=== PATIENT | female | born 1970 | race Two or more races ===

== ENCOUNTER 2020-07-08 01:17 | Emergency (ER) | payer OTHER, SELFPAY ==
[2020-07-08 01:26] VITALS: BP 125/80; BP 147/80; PULSE 74; PULSE 81; RESP 16; TEMP 36.6; O2SAT 100; O2SAT 97; BMI 44.9
--- NOTE | 2020-07-08 01:39 | PC.NURSE ---
Pt unable to provide urine sample at this time.
--- NOTE | 2020-07-08 01:45 | ED.ANXIETY ---
HPI - Anxiety General Chief Complaint: Anxiety Stated Complaint: etoh Time Seen by Provider: 07/08/20 01:41 Source: patient Mode of arrival: EMS Limitations: no limitations History of Present Illness HPI narrative: patient comes to emergency room complaining of anxiety. Patient states she had an argument with a friend/family, triggered anxiety. Patient states she has been drinking all of the ear over the last few years. Patient wants to stop drinking. Requesting information to call for detox. Related Data Allergies Allergy/AdvReac Type Severity Reaction Status Date / Time No Known Allergies Allergy Unverified 05/15/20 15:31 Review of Systems Review of Systems: Constitutional : No Weight loss, No Fever, No Chills, No Night Sweats, No Fatigue, No Malaise ENT/Mouth : No Hearing loss, No Ear Pain, No Nasal Congestion, No Sinus Pain, No Hoarseness, No sore throat, No Rhinorrhea, No Swallowing Difficulty Eyes: No Eye Pain, No Swelling, No Redness, No Foreign Body, No Discharge, No Vision Changes Cardiovascular : No Chest Pain, No SOB, No Dyspnea on Exertion, No Orthopnea, No Edema, No Palpitations Respiratory : No Cough, No Sputum, No Wheezing, No Smoke Exposure, No Dyspnea Gastrointestinal : No Nausea, No Vomiting, No Diarrhea, No Constipation, No abdominal Pain, No Hematochezia, No Melena Genitourinary : no irregular bleeding, No Dysuria, No Urinary Frequency, No Hematuria, No Urinary Incontinence, No Urgency, No Flank Pain, No Urinary Flow Changes, No Hesitancy Musculoskeletal : No joint pain, No Myalgias, No Joint Swelling Skin : No Skin Lesions, No rash Neuro : No Weakness, No Numbness, No Paresthesias, No Loss of Consciousness, No Dizziness, No Headache Psych : Patient's is anxious, crying, calm, cooperative, no SI or HI sh ideation, Heme/Lymph: No Bruising, No Bleeding,No Lymphadenopathy Endocrine : No Polyuria, No Polydipsia, No Temperature Intolerance PMFSH Past Medical History Medical History Anxiety Depression ETOH abuse Social History Social History Alcohol intake: current Alcohol intake frequency: 3 or more drinks per day Alcohol type: beer Smoking Status: Current every day smoker Use of substances other than those prescribed or required for medical reasons: No Physical Exam Vital Signs: Vital Signs: Last Vital Signs Temp 97.8 F 07/08/20 01:26 Pulse 81 07/08/20 01:26 Resp 16 07/08/20 01:26 BP 125/80 07/08/20 01:26 Pulse Ox 97 07/08/20 01:26 Body Mass Index 44.9 Course Course Course Narrative: patient got Ativan, more calm now, the care team discussed with the patient options for treatment and given information. Patient has a sober ride to pick her up. patient remains alert and oriented x3, steady gait. Discharge Plan Discharge Clinical Impression: Acute anxiety Alcohol intoxication Qualifiers: Complication of substance-induced condition: uncomplicated Qualified Code(s): F10.920 - Alcohol use, unspecified with intoxication, uncomplicated Patient Disposition: Home, Self-Care Instructions: Abuse of Alcohol (ED), Anxiety (ED)
--- NOTE | 2020-07-08 01:47 | PC.NURSE ---
Care Team at bedside providing detox information.
[2020-07-08] MEDS: LORazepam 1 MG TABLET 2 MG PO (01:59)
--- NOTE | 2020-07-08 02:00 | PC.NURSE ---
Pt medicated with Ativan per EMAR. 1 tablet dropped on ground, wasted with J Luis VELASQUEZ. Another tablet was removed due to having to waste 1 mg. Pt aware of pending DC, calling for rides.
[2020-07-08 02:21] VITALS: BP 125/79; PULSE 76; RESP 16; O2SAT 97
--- NOTE | 2020-07-08 02:30 | PC.NURSE ---
Pts son en route to drive pt home. Pt provided with DC paperwork and ambulating to the waiting room to await her son for transport home. Pt ambulating with a aguilar/steady gait.
== END 2020-07-08 02:33 | disposition home or self-care (01) ==
LOC: HO.ED 01:56
PROVIDERS: Emergency Provider Emergency Medicine
DX: F41.1 Generalized anxiety disorder (principal); F43.0 Acute stress reaction
CPT/HCPCS: 99283

== ENCOUNTER 2020-08-07 14:32 | Outpatient (REF) | payer OTHER, SELFPAY | END 2020-08-07 14:33 | disposition home or self-care (01) | LOC: HO.LAB 14:32 | PROVIDERS: PCP Internal Medicine; Visit Provider Internal Medicine | DX: Z20.828 Contact with and (suspected) exposure to other viral communicable diseases (principal) | CPT/HCPCS: C9803; U0003 ==

== ENCOUNTER 2020-08-16 02:38 | Emergency (ER) | payer OTHER, SELFPAY ==
[2020-08-16 02:40] VITALS: BP 129/79; PULSE 86; RESP 18; TEMP 36.7; O2SAT 98; BMI 23.3
--- NOTE | 2020-08-16 02:52 | ED.ABDPAIN ---
HPI - Abdominal Pain General Chief Complaint: Abdominal Pain Stated Complaint: ?Kidney stone Time Seen by Provider: 08/16/20 02:52 Source: patient Mode of arrival: ambulatory Limitations: no limitations History of Present Illness HPI narrative: Patient with no history of kidney stone in the past previous CT scan was negative comes here for right flank pain started 3 days ago treated in the right lower abdomen associated with nausea no urinary complaints still yesterday when she noticed pain when she urinates. No blood in the urine no fever no chills no vomiting no family history of kidney stone MD elicited complaint: flank pain Pertinent past history: constipation Onset (ago): day(s) (3) Pain Consistency: constant Location: RLQ and R flank Severity: moderate Quality: stabbing Radiation: RLQ Exacerbating factors: nothing Relieving factors: nothing Related Data Allergies Allergy/AdvReac Type Severity Reaction Status Date / Time No Known Allergies Allergy Verified 08/16/20 02:40 Review of Systems Review of Systems Constitutional : No Weight loss, No Fever, No Chills ENT/Mouth : No sore throat, No Rhinorrhea Eyes: No Eye Pain, No Swelling Cardiovascular : pos Chest Pain, no SOB, no Dyspnea on Exertion, No Orthopnea, No Edema, No Palpitations Respiratory : No Cough, No Sputum Gastrointestinal : No Vomiting, No Diarrhea No Hematochezia, No Melena Genitourinary : No Urinary Frequency no hematuria Musculoskeletal : No joint pain, No Myalgias, No Joint Swelling Skin : No Skin Lesions, No rash Neuro : No Weakness, No Numbness, pos Dizziness, No Headache Psych : No Anxiety/Panic, No Depression Heme/Lymph: No Bruising, No Lymphadenopathy Endocrine : No Polyuria, No Polydipsia All other systems reviewed and are negative Physical Exam Vital Signs: Vital Signs: Last Vital Signs Temp 98.1 F 08/16/20 02:40 Pulse 86 08/16/20 02:40 Resp 18 08/16/20 02:40 BP 129/79 08/16/20 02:40 Pulse Ox 98 08/16/20 02:40 Body Mass Index 23.3 Appearance: Alert. Oriented X3. No acute distress. Eyes: Pupils equal, round and reactive to light. ENT: Pharynx normal. Neck: Normal inspection. Neck supple. CVS: Normal heart rate and rhythm. Pulses normal. Respiratory: No respiratory distress. Breath sounds normal. Abdomen: Soft and nontender. Right CVA tenderness+ bowel sounds are present no mass palpable Skin: Skin warm and dry. Normal skin color. Normal skin turgor. Extremities: No lower extremity edema. No calf ttp Neuro: Oriented X 3. No motor deficit. No sensory deficit. MDM - Abdominal Pain MDM Narrative Medical decision making narrative: Patient with flank pain, urine is negative showed only trace blood CT scan is also negative for any acute pathology no kidney stone seen patient constipated likely patient has muscular pain will discharge her home on pain medicine Differential Diagnosis Differential diagnosis: Likely calculus of kidney Medical Records Attestation: I reviewed the patient's medical records. Lab Data Attestation: I reviewed the patient's lab results. Result diagrams: 08/16/20 03:06 08/16/20 03:06 Labs: Lab Results 08/16/20 08/16/20 08/16/20 Range/Units 03:06 03:06 03:06 WBC 7.3 (4.8-10.8) X10*3/uL RBC 4.35 (4.20-5.50) X10*6/uL Hgb 14.6 (12.0-16.0) g/dl Hct 43.3 (37-47) % MCV 99.5 H (80-98) fL MCH 33.6 H (27.0-33.0) pg MCHC 33.7 (31.0-35.0) g/dl RDW 12.4 (11.0-16.0) % Plt Count 263 (160-400) X10*3/uL MPV 10.1 (9.4-12.3) fL Immature Gran % (Auto) 0.3 (0.0-0.4) % Neut % (Auto) 54.1 (45-73) % Lymph % (Auto) 33.7 (20-40) % [place] % (Auto) 9.6 (2-11) % Eos % (Auto) 1.9 (0-4) % Baso % (Auto) 0.4 (0-2) % Lymph # (Auto) 2.5 (1.2-4.9) X10*3/uL [place] # (Auto) 0.7 (0.1-1.2) X10*3/uL Eos # (Auto) 0.1 (0.0-0.4) X10*3/uL Baso # (Auto) 0.0 (0.0-0.2) X10*3/uL Abs Immat Gran (auto) 0.02 (0.00-0.03) X10*3/uL Absolute Neuts (auto) 3.9 (2.0-8.3) X10*3/uL Absolute Nucleated RBC 0.000 (0.0-0.012) X10*3/uL Nucleated RBC % (auto) 0.0 (0.0-0.2) /100WBC Hold Blue Top SEE NOTE Sodium (135-145) mmol/L Potassium (3.3-5.1) mmol/l Chloride (96-108) mmol/L Carbon Dioxide (22-29) mmol/L Anion Gap (12-20) BUN (9-16) mg/dL Creatinine (0.5-1.4) mg/dL Estim Creat Clear Calc Estimated GFR Random Glucose (60-115) mg/dL Calcium (8.4-10.2) mg/dL Total Bilirubin (0.0-1.0) mg/dL AST (5-31) U/L ALT (0-31) U/L Alkaline Phosphatase (39-117) U/L Total Protein (6.5-8.0) g/dL Albumin (3.5-5.0) g/dL Urine Color YELLOW Urine Appearance CLEAR Urine pH 6.0 (5.0-8.0) Ur Specific Fowler <= 1.005 (1.005-1.025) Urine Protein NEG (NEG-TRACE) MG/DL Urine Glucose (UA) NEG (NEG) MG/DL Urine Ketones NEG (NEG) MG/DL Urine Blood TRACE (NEG) Urine Nitrite NEG (NEG) Ur Leukocyte Esterase NEG (NEG) Urine RBC 1-4 (0) /HPF Urine WBC 1-4 (0-4) /HPF Ur Squamous Epith Cells 1+ /LPF Urine Bacteria 1+ /LPF 08/16/20 Range/Units 03:06 WBC (4.8-10.8) X10*3/uL RBC (4.20-5.50) X10*6/uL Hgb (12.0-16.0) g/dl Hct (37-47) % MCV (80-98) fL MCH (27.0-33.0) pg MCHC (31.0-35.0) g/dl RDW (11.0-16.0) % Plt Count (160-400) X10*3/uL MPV (9.4-12.3) fL Immature Gran % (Auto) (0.0-0.4) % Neut % (Auto) (45-73) % Lymph % (Auto) (20-40) % [place] % (Auto) (2-11) % Eos % (Auto) (0-4) % Baso % (Auto) (0-2) % Lymph # (Auto) (1.2-4.9) X10*3/uL [place] # (Auto) (0.1-1.2) X10*3/uL Eos # (Auto) (0.0-0.4) X10*3/uL Baso # (Auto) (0.0-0.2) X10*3/uL Abs Immat Gran (auto) (0.00-0.03) X10*3/uL Absolute Neuts (auto) (2.0-8.3) X10*3/uL Absolute Nucleated RBC (0.0-0.012) X10*3/uL Nucleated RBC % (auto) (0.0-0.2) /100WBC Hold Blue Top Sodium 136 (135-145) mmol/L Potassium 3.8 (3.3-5.1) mmol/l Chloride 101 (96-108) mmol/L Carbon Dioxide 26 (22-29) mmol/L Anion Gap 13 (12-20) BUN 6 L (9-16) mg/dL Creatinine 0.69 (0.5-1.4) mg/dL Estim Creat Clear Calc 92.3 Estimated GFR > 60 Random Glucose 69 (60-115) mg/dL Calcium 9.1 (8.4-10.2) mg/dL Total Bilirubin 0.3 (0.0-1.0) mg/dL AST 33 H (5-31) U/L ALT 19 (0-31) U/L Alkaline Phosphatase 78 (39-117) U/L Total Protein 7.4 (6.5-8.0) g/dL Albumin 4.2 (3.5-5.0) g/dL Urine Color Urine Appearance Urine pH (5.0-8.0) Ur Specific Fowler (1.005-1.025) Urine Protein (NEG-TRACE) MG/DL Urine Glucose (UA) (NEG) MG/DL Urine Ketones (NEG) MG/DL Urine Blood (NEG) Urine Nitrite (NEG) Ur Leukocyte Esterase (NEG) Urine RBC (0) /HPF Urine WBC (0-4) /HPF Ur Squamous Epith Cells /LPF Urine Bacteria /LPF PMFSH Past Medical History Medical History Anxiety Depression ETOH abuse Social History Social History Alcohol intake: current Alcohol intake frequency: 3 or more drinks per day Alcohol type: beer Smoking Status: Current every day smoker Advance Directives: No Advance Directives Information Provided: No
--- NOTE | 2020-08-16 02:57 | PC.NURSE ---
Addendum entered by Shelbie Bhandari 08/16/20 03:07: Correction: Right sided lower back pain radiating into right flank/abdomen. Original Note: Pt reports left lower back pain radiating into left flank/abdomen x 3 days with nausea and decreased PO. Pt states that she had a telephone appt with her PCP who told her it was a kidney stone but she has an office appt today. Pt states she is unable to wait due to the pain. Pt ambulating to the bathroom to provide urine sample, reporting burning with urination, a white jello discharge and vaginal itching. Pt denies taking anything OTC for pain, denies hx of kidney stones. Awaiting primary MD mccullough.
--- NOTE | 2020-08-16 03:09 | PC.NURSE ---
IV established, labs and urine obtained. Pt self reports drinking 3 beers at a birthday green party prior to arriving at [facility], denies drugs. Awaiting primary MD mccullough.
--- NOTE | 2020-08-16 03:15 | CT_ITS ---
EXAMINATION: CT ABDOMEN AND PELVIS WITHOUT CONTRAST CLINICAL INFORMATION: Right flank pain. COMPARISON: 08/16/2016. TECHNIQUE: Contiguous axial thin section helical images of the abdomen and pelvis were performed without oral or IV contrast. The data set was reformatted in the coronal and sagittal planes and reviewed on an independent workstation. DLP: 513 mGy-cm. FINDINGS: There is mild dependent bibasilar atelectasis. The visualized lung bases are otherwise clear. The visualized portions of the heart are unremarkable. The liver is of normal size and attenuation without focal lesions nor intrahepatic biliary ductal dilation. A normal gallbladder is identified. There is no wall thickening or discernible pericholecystic fluid. The spleen, pancreas, adrenal glands are unremarkable. Both kidneys are of normal size and attenuation without hydronephrosis or nephrolithiasis. There is no abdominal free fluid. There is neither mesenteric nor retroperitoneal lymphadenopathy. Normal unopacified loops of small and large bowel are identified. There is no pelvic free fluid. The urinary bladder is unremarkable. There is neither pelvic nor inguinal lymphadenopathy. Bone windows: Neither sclerotic nor lytic bone lesions are identified. There is disc height loss at L5/S1. CT/CT abdomen pelvis wo con IMPRESSION: No evidence for acute abdominal or pelvic inflammatory or infectious processes. Neither hydronephrosis nor nephrolithiasis. Automated exposure control (Care Dose) Adjustment of the mA and/or kv according to patient size (this includes techniques or standardized protocols for targeted exams where dose is matched to indication / reason for exam; i.e. extremities or head).
[2020-08-16 03:16] LABS: MANUAL DIFF FLAG NO
--- NOTE | 2020-08-16 03:17 | PC.NURSE ---
MD at bedside for primary eval. During abdominal exam, pt now reporting pain with palpitation to LLQ, states that she was not having pain in that location until palpated by MD. LBM 08/14 however pt reports feeling constipated, states she usually moves her bowels daily.
[2020-08-16] MEDS: Morphine Sulfate 4 MG/ML CARTRIDGE IVPUSH (03:22)
[2020-08-16] MEDS: ondansetron HCL 4 MG/2 ML VIAL IVPUSH (03:22)
[2020-08-16] MEDS: 0.9 % Sodium Chloride 1,000 ML 999 ML IVCONT (03:22)
[2020-08-16 03:23] LABS: Basophils Percent Auto 0.4 % (0-2); Eosinophils Absolute Auto 0.1 X10*3/uL (0.0-0.4); Eosinophils Percent Auto 1.9 % (0-4); Hematocrit 43.3 % (37-47); Hemoglobin 14.6 g/dl (12.0-16.0); Imm Gran Abs Auto 0.02 X10*3/uL (0.00-0.03); Imm Gran Pct Auto 0.3 % (0.0-0.4); Lymphocytes Absolute Auto 2.5 X10*3/uL (1.2-4.9); Lymphocytes Percent Auto 33.7 % (20-40); Mean Corpuscular HGB Conc 33.7 g/dl (31.0-35.0); Mean Corpuscular Hemoglobin 33.6 pg (27.0-33.0); Mean Corpuscular Volume 99.5 fL (80-98); Mean Platelet Volume 10.1 fL (9.4-12.3); Monocytes Absolute Auto 0.7 X10*3/uL (0.1-1.2); Monocytes Percent Auto 9.6 % (2-11); Neutrophils Absolute Auto 3.9 X10*3/uL (2.0-8.3); Neutrophils Percent Auto 54.1 % (45-73); Platelet Count 263 X10*3/uL (160-400); Red Blood Count 4.35 X10*6/uL (4.20-5.50); Red Cell Distribution Width 12.4 % (11.0-16.0); White Blood Count 7.3 X10*3/uL (4.8-10.8)
--- NOTE | 2020-08-16 03:26 | PC.NURSE ---
Pt medicated per MAR, aware of plan to CT. Continue to monitor.
[2020-08-16 03:49] LABS: Alanine Aminotransferase 19 U/L (0-31); Albumin Level 4.2 g/dL (3.5-5.0); Alkaline Phosphatase 78 U/L (39-117); Anion Gap 13 (12-20); Aspartate Amino Transferase 33 U/L (5-31); Bilirubin Total 0.3 mg/dL (0.0-1.0); Blood Urea Nitrogen 6 mg/dL (9-16); Calcium 9.1 mg/dL (8.4-10.2); Carbon Dioxide 26 mmol/L (22-29); Chloride 101 mmol/L (96-108); Creatinine Clr Calc Pharmacy 92.3; Estimated Glomerular Filt Rate > 60; Glucose Random 69 mg/dL (60-115); Potassium 3.8 mmol/l (3.3-5.1); Sodium 136 mmol/L (135-145); Total Protein 7.4 g/dL (6.5-8.0)
--- NOTE | 2020-08-16 03:58 | PC.NURSE ---
Pt returns from CT on hospital bed without incident, awaiting results.
[2020-08-16 04:04] LABS: Glucose Urine UA NEG (NEG); Leukocyte Esterase Urine NEG (NEG); Nitrite Urine NEG (NEG); Specific Gravity - Urine <= 1.005 (1.005-1.025); Urine Blood TRACE (NEG); Urine Ketones NEG (NEG); Urine Protein NEG (NEG-TRACE)
[2020-08-16 04:05] LABS: Appearance Urine CLEAR; Color Urine YELLOW
[2020-08-16 04:10] LABS: Bacteria Urine 1+ /LPF; Squamous Epithelial Cell Urine 1+ /LPF
--- NOTE | 2020-08-16 04:14 | PC.NURSE ---
MD at bedside explaining discharge results and plan of care. Pt snoring in bed, plan to discharge when pt wakes up.
[2020-08-16 04:37] VITALS: BP 114/65; PULSE 79; RESP 16
[2020-08-16] MEDS: Milk of Magnesia 30 ML ORAL.SUSP PO (04:37)
== END 2020-08-16 04:43 | disposition home or self-care (01) ==
PROVIDERS: Emergency Provider Internal Medicine; PCP Internal Medicine
DX: R10.9 Unspecified abdominal pain (principal); F17.210 Nicotine dependence, cigarettes, uncomplicated
CPT/HCPCS: 36415; 74176; 80053; 81001; 81003; 85025; 96361; 96374; 96375; 99284; J2270; J2405

== ENCOUNTER 2020-09-01 01:39 | Emergency (ER) | payer OTHER, SELFPAY ==
--- NOTE | 2020-09-01 | XR_ITS ---
EXAMINATION: XR HUMERUS, RIGHT XR FOREARM, RIGHT CLINICAL INFORMATION: Fall COMPARISON: None TECHNIQUE: 2 views of the right humerus. 2 views of the right forearm. FINDINGS: Right humerus: No fracture or cortical disruption. Appropriate alignment of the shoulder and elbow. The visualized ribs are intact. The visualized lung is clear. Right forearm: No fracture or cortical disruption. Appropriate alignment of the elbow and wrist. The soft tissues are unremarkable. XR/XR humerus RT IMPRESSION: No fracture or malalignment of the right humerus or forearm.
--- NOTE | 2020-09-01 | XR_ITS ---
EXAMINATION: XR HUMERUS, RIGHT XR FOREARM, RIGHT CLINICAL INFORMATION: Fall COMPARISON: None TECHNIQUE: 2 views of the right humerus. 2 views of the right forearm. FINDINGS: Right humerus: No fracture or cortical disruption. Appropriate alignment of the shoulder and elbow. The visualized ribs are intact. The visualized lung is clear. Right forearm: No fracture or cortical disruption. Appropriate alignment of the elbow and wrist. The soft tissues are unremarkable. XR/XR forearm RT 2V IMPRESSION: No fracture or malalignment of the right humerus or forearm.
[2020-09-01 02:16] VITALS: BP 115/64; PULSE 85; RESP 16; TEMP 36.8; O2SAT 99; BMI 23.3
--- NOTE | 2020-09-01 03:45 | XR_ITS ---
EXAMINATION: XR HAND, RIGHT CLINICAL INFORMATION: Fall COMPARISON: None TECHNIQUE: PA, lateral, and oblique views of the right hand. FINDINGS: There is no fracture or dislocation. Alignment is anatomic. Changes of the first interphalangeal joint and first metacarpophalangeal joint with small osteophytes. The carpal rows are well aligned. The soft tissues are unremarkable. XR/XR hand RT min 3V IMPRESSION: No fracture or malalignment.
--- NOTE | 2020-09-01 03:47 | ED.FALL ---
HPI - Fall General Chief Complaint: Fall Stated Complaint: Fall Time Seen by Provider: 09/01/20 03:41 Source: patient Mode of arrival: ambulatory Limitations: no limitations History of Present Illness HPI Narrative: Patient was coming from the bathroom in dark patient tripped and fell on stairs about 10 steps slided down complaining of pain in the right hand no head injury no loss of consciousness no significant back pain, patient ambulatory without any discomfort complaint: fall Onset (ago): minute(s) Fall from: down stairs (#) (10) Fall witnessed: no Place fall occurred: home Loss of consciousness: none Prolonged down time: no Symptoms prior to fall: none Context: tripped/slipped Location of injury - extremities: right: hand Severity: mild Related Data Previous Rx's Medication Instructions Recorded bisacodyl [Ducodyl (bisacodyl)] 5 mg PO BEDTIME PRN #20 tab 08/16/20 polyethylene glycol 3350 [Miralax] 17 g PO DAILY PRN #30 ea 08/16/20 ibuprofen 600 mg PO Q6H PRN #20 tab 09/01/20 Allergies Allergy/AdvReac Type Severity Reaction Status Date / Time No Known Allergies Allergy Verified 08/16/20 02:40 Review of Systems Review of Systems: Yes all other systems are reviewed and are negative PMFSH Past Medical History Medical History Anxiety Depression ETOH abuse Social History Social History Alcohol intake: never Smoking Status: Light tobacco smoker Use of substances other than those prescribed or required for medical reasons: No Advance Directives: No Advance Directives Information Provided: No Physical Exam Vital Signs: Vital Signs: Last Vital Signs Temp 98.2 F 09/01/20 02:16 Pulse 85 09/01/20 02:16 Resp 16 09/01/20 02:16 BP 115/64 09/01/20 02:16 Pulse Ox 99 09/01/20 02:16 Body Mass Index 23.3 Appearance: Alert. Oriented X3. No acute distress. Eyes: Pupils equal, round and reactive to light. ENT: Pharynx normal. Head atraumatic normocephalic no mastoid tenderness Neck: Normal inspection. Neck supple. No cervical spine tenderness CVS: Normal heart rate and rhythm. Pulses normal. Respiratory: No respiratory distress. Breath sounds normal. Abdomen: Soft and nontender. Bowel sounds are present, no mass palpable, Skin: Skin warm and dry. Normal skin color. Normal skin turgor. Extremities: Tenderness with swelling of right dorsum of hand with painful range of movement mild tenderness right elbow with good range of movement good range of movement of the shoulder no other bony tenderness no focal spinal tenderness patient is able to ambulate in a steady gait Neuro: Oriented X 3. No motor deficit. No sensory deficit. Discharge Plan Discharge Clinical Impression: Sprain of hand, right Qualifiers: Encounter type: initial encounter Qualified Code(s): S63.91XA - Sprain of unspecified part of right wrist and hand, initial encounter Patient Disposition: Home, Self-Care Instructions: Hand Sprain (ED) Additional Instructions: Apply ice wear the splint for support Take pain medication as prescribed Prescriptions: New ibuprofen 600 mg tablet 600 mg PO Q6H PRN (Reason: pain) Qty: 20 RF: 0 No Action polyethylene glycol 3350 [Miralax] 17 gram powder in packet 17 g PO DAILY PRN (Reason: constipation) Qty: 30 RF: 0 bisacodyl [Ducodyl (bisacodyl)] 5 mg tablet,delayed release (DR/EC) 5 mg PO BEDTIME PRN (Reason: constipation) Qty: 20 RF: 0 Interventions: ED Discharge Assessment Last Done: 09/01/20 04:28 Discharge Date/Time: 09/01/20 04:29
[2020-09-01] MEDS: Ibuprofen 600 MG TABLET PO (04:28)
== END 2020-09-01 04:29 | disposition home or self-care (01) ==
PROVIDERS: Emergency Provider Internal Medicine
DX: S63.91XA Sprain of unspecified part of right wrist and hand, initial encounter (principal); W10.8XXA Fall (on) (from) other stairs and steps, initial encounter; Y93.9 Activity, unspecified; Y92.019 Unspecified place in single-family (private) house as the place of occurrence of the external cause; Y99.9 Unspecified external cause status; F17.210 Nicotine dependence, cigarettes, uncomplicated; F10.10 Alcohol abuse, uncomplicated
CPT/HCPCS: 29125; 73060; 73090; 73130; 99284

== ENCOUNTER 2020-09-30 20:33 | Emergency (ER) | payer OTHER, SELFPAY | END 2020-09-30 21:35 | disposition left against medical advice (07) | PROVIDERS: Emergency Provider Emergency Medicine; PCP Internal Medicine | DX: R10.30 Lower abdominal pain, unspecified (principal) ==

== ENCOUNTER 2020-10-01 00:52 | Emergency (ER) | payer OTHER, SELFPAY ==
[2020-10-01 01:09] VITALS: BP 135/78; PULSE 80; RESP 18; TEMP 36.3; O2SAT 97; BMI 23.3
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
[2020-10-01] MEDS: cefTRIAXone sodium 500 MG, Lidocaine HCl 1 % MPF 1 ML IM (01:40)
[2020-10-01] MEDS: Azithromycin 500 MG TABLET 1000 MG PO (01:40)
[2020-10-01 01:47] LABS: Appearance Urine CLEAR; Color Urine STRAW; Glucose Urine UA NEG (NEG); Leukocyte Esterase Urine NEG (NEG); Nitrite Urine NEG (NEG); PH 5.5 (5.0-8.0); Specific Gravity - Urine <= 1.005 (1.005-1.025); UACC Culture Trigger NO; Urine Blood NEG (NEG); Urine Ketones NEG (NEG); Urine Protein NEG (NEG-TRACE)
[2020-10-01 01:49] LABS: UPreg QC Valid YES; Urine Pregnancy NEGATIVE (NEGATIVE)
--- NOTE | 2020-10-01 01:52 | PC.NURSE ---
PT MEDICATED WITH PO ABX CHARTED. IM ABX TO LEFT DELTOID, PT TANA WELL. UACC AND CTNG COLLECTED AND SENT TO LAB, RESULTS PENDING. PT APPEARS IN NAD. SKIN WD, RESP REG AND EVEN.
[2020-10-01] MEDS: Fluconazole 150 MG TABLET PO (02:39)
[2020-10-02 11:58] LABS: C. trachomatis RNA TMA NOT DETECTED (NOT DETECTED); N. gonorrhoeae RNA TMA NOT DETECTED (NOT DETECTED)
== END 2020-10-01 02:44 | disposition home or self-care (01) ==
PROVIDERS: Emergency Provider Student in an Organized Health Care Education/Training Program; PCP Internal Medicine
DX: N89.8 Other specified noninflammatory disorders of vagina (principal); Z20.2 Contact with and (suspected) exposure to infections with a predominantly sexual mode of transmission; F17.200 Nicotine dependence, unspecified, uncomplicated
CPT/HCPCS: 36415; 81003; 81025; 87491; 87591; 96372; 99284; J0696

== ENCOUNTER 2020-10-17 01:50 | Emergency (ER) | payer OTHER, SELFPAY ==
[2020-10-17 02:14] VITALS: BP 130/87; PULSE 71; RESP 18; TEMP 36.9; O2SAT 100; BMI 26.3
--- NOTE | 2020-10-17 02:56 | ED_ITS ---
HPI - General Adult General Chief complaint: Abdominal Pain Stated complaint: abdominal pain Time Seen by Provider: 10/17/20 02:24 Source: patient Mode of arrival: ambulatory Limitations: no limitations History of Present Illness HPI narrative: 50-year-old female who presents emergency department for evaluation lower abdominal pain and dysuria with pruritus in the vaginal area. The patient states that she is sexually active and had sex with a new partner approximately 1 month prior. The patient was seen here in the emergency department on 10/01/2020 for evaluation of suprapubic pain, burning sensation in her vaginal area and a vaginal discharge. The patient was treated empirically with ceftriaxone 500 mg IM and azithromycin 1 g orally. She states that this did not relieve her symptoms. She states that currently she is having suprapubic pain which describes as a constant, burning pain which is 8/10 at its worst. She states that she continues to have a yellow vaginal discharge, urinary frequency and a burning sensation with pruritus in the vaginal area. She has not noticed any blisters or lesions. She denied fever, chills, nausea, vomiting or diarrhea. Related Data Previous Rx's Medication Instructions Recorded bisacodyl [Ducodyl (bisacodyl)] 5 mg PO BEDTIME PRN #20 tab 08/16/20 polyethylene glycol 3350 [Miralax] 17 g PO DAILY PRN #30 ea 08/16/20 ibuprofen 600 mg PO Q6H PRN #20 tab 09/01/20 doxycycline hyclate 100 mg PO Q12H 10 Days #20 tab 10/17/20 metronidazole 500 mg PO BID 10 Days #20 tab 10/17/20 miconazole nitrate [Monistat 7] 1 appful VAGINAL BEDTIME 7 Days g 10/17/20 Allergies Allergy/AdvReac Type Severity Reaction Status Date / Time No Known Allergies Allergy Verified 08/16/20 02:40 Review of Systems Review of Systems: Yes all other systems are reviewed and are negative Neurologic: Reports Abnormal speech present [facility] Past Medical History [facility] Narrative: The patient does smoke cigarettes daily. She drinks alcohol 2 to 3 times a week, she drinks 5 beers at a time. She denies drug use. Medical History Anxiety Depression ETOH abuse Social History Social History Alcohol intake: current Alcohol intake frequency: 3 or more drinks per day Alcohol type: beer Smoking Status: Current every day smoker Advance Directives: No Advance Directives Information Provided: No Physical Exam Vital Signs: Vital Signs: Last Vital Signs Temp 98.5 F 10/17/20 02:14 Pulse 71 10/17/20 02:14 Resp 18 10/17/20 02:14 BP 130/87 10/17/20 02:14 Pulse Ox 100 10/17/20 02:14 Body Mass Index 26.3 Const: General: cooperative and healthy appearing Orientation/conscio usness: oriented to person and oriented to place Limitations: no limitations HENMT: Head: Yes normal to inspection, Yes normocephalic and Yes atraumatic Ears: external ears normal General nose exam: Normal external nose present Face and sinus: Yes normal facial exam Mouth: Normal oral and palatal mucosa present Throat: Yes posterior oropharynx normal Eyes: Periorbital: periorbital findings normal Eyelids: Yes eyelids normal Conjunctivae: conjunctivae normal Sclerae: sclerae normal Corneas: corneas normal Pupils: Equal, round and reactive pupils present Direct Ophthalmoscopy: normal light reflex Neck: Neck: Yes full ROM, Yes no lymphadenopathy, Yes no meningeal signs, Yes trachea midline and Yes supple Chest: Chest palpation & inspection: normal inspection of the chest and normal palpation of entire chest wall Resp: Effort & Inspection: normal respiratory effort and able to speak in complete sentences Auscultation: clear to auscultation bilaterally Cardio: Rate: regular rate Rhythm: regular rhythm Heart sounds: S1 normal heart sound present, S2 normal heart sound present and no murmurs GI: Inspection: Yes normal to inspection Palpation (GI): Soft to palpation, Tenderness to palpation present (GI) suprapubicly (Moderate), no guarding, not rigid and No hepatosplenomegaly present : General: Yes no CVA tenderness External Female Exam: normal external appearance Speculum Exam - Vagina: abnormal vaginal discharge (Yellowish vaginal discharge) Speculum Exam - Cervix: Abnormal cervical discharge present yellow, no lesions and Cervical tenderness present (Moderate) Bimanual exam- vagina & uterus: Cervical tenderness present (Moderate) and cervical motion tenderness (Moderate) Bimanual Exam- Adnexa, other: tender bilaterally (Moderate) Back/Spine/Pelvis: Back: no CVA tenderness Cervical Spine: normal cervical lordosis Thoracic/Lumbar Spine: thoracic and lumbar spine normal to inspection Skin: Lesions: no lesions Rashes: no rashes Wounds: no wounds Neuro: General: oriented to person, oriented to place and no meningeal signs Cranial nerves: Yes Equal, round and reactive pupils present Cognition (Neuro): normal cognition Speech: Abnormal speech present Motor exam (neuro): 5/5 motor strength present throughout Extrem: General: Yes normal to inspection and Yes full ROM Psych: Appearance: well kempt Mental Status: mental status grossly normal Speech and movement: Normal speech and movement present Affect: normal affect Attitude: cooperative Thought process: Normal thought process present Thought content: Normal thought content present Course Course Course Narrative: 50-year-old female who presents emergency department for evaluation of suprapubic pain, dysuria, vaginal burning and pruritus times 2 weeks, patient is sexually active and last had intercourse 1 month prior with a new sexual partner. The patient was seen in the emergency department on 10/01/2020 and treated empirically for GC and chlamydia with ceftriaxone 500 mg IM and azithromycin 1 g orally with no improvement of her symptoms. Today's examination is consistent with pelvic inflammatory disease. The patient's urine GC and chlamydia results from her previous visit were negative. The patient will be treated for pelvic inflammatory disease with doxycycline 100 mg twice a day for 10 days and Flagyl 500 mg twice a day for 10 days. She will also be treated empirically for possible yeast infection with Monistat 7. She was advised to take ibuprofen for her pain. She gets her gynecological care at [facility] and she was advised to follow-up in 7-10 days for re- evaluation Medical Decision Making Lab Data Labs: Lab Results 10/17/20 Range/Units 02:59 Chlam trachomat DNA PCR Cancelled N.gonorrhoeae DNA (PCR) Cancelled Discharge Plan Discharge Clinical Impression: Acute pelvic inflammatory disease, Candidiasis of vagina Patient Disposition: Home, Self-Care Instructions: Pelvic Inflammatory Disease (ED) Additional Instructions: Your examination is consistent with pelvic inflammatory disease. Take doxycycline 100 mg pills, 1 pill twice a day for 10 days. Take metronidazole 500 mg pills, 1 pill twice a day for 10 days. Use the Monistat 7 daily for 7 days this will treat a yeast infection. Take ibuprofen 200 mg pills, 3 pills every 6 hours as needed for pain. Take Tylenol (acetaminophen) 500 mg pills, 2 pills every 4 to 6 hours as needed for pain. Follow-up with your doctor in 2 days. Please return to the emergency department if your symptoms get worse or if you develop any symptoms that are concerning to you. Prescriptions: New doxycycline hyclate 100 mg tablet 100 mg PO Q12H 10 Days Qty: 20 RF: 0 metronidazole 500 mg tablet 500 mg PO BID 10 Days Qty: 20 RF: 0 miconazole nitrate [Monistat 7] 2 % cream 1 appful vaginal BEDTIME 7 Days RF: 0 No Action polyethylene glycol 3350 [Miralax] 17 gram powder in packet 17 g PO DAILY PRN (Reason: constipation) Qty: 30 RF: 0 bisacodyl [Ducodyl (bisacodyl)] 5 mg tablet,delayed release (DR/EC) 5 mg PO BEDTIME PRN (Reason: constipation) Qty: 20 RF: 0 ibuprofen 600 mg tablet 600 mg PO Q6H PRN (Reason: pain) Qty: 20 RF: 0
[2020-10-17 03:02] LABS: Glucose Urine UA NEG (NEG); Leukocyte Esterase Urine NEG (NEG); Nitrite Urine NEG (NEG); Specific Gravity - Urine <= 1.005 (1.005-1.025); Urine Blood NEG (NEG); Urine Ketones NEG (NEG); Urine Protein NEG (NEG-TRACE)
[2020-10-17 03:10] LABS: Appearance Urine CLEAR; Bacteria Urine TRACE /LPF; Color Urine YELLOW; RBC Urine 0-2 /HPF (0); Squamous Epithelial Cell Urine TRACE /LPF; WBC Urine 0-2 /HPF (0-4)
[2020-10-17] MEDS: metroNIDAZOLE 500 MG TABLET PO (03:24)
== END 2020-10-17 03:28 | disposition home or self-care (01) ==
PROVIDERS: Emergency Provider Emergency Medicine Emergency Medical Services
DX: B37.3 Candidiasis of vulva and vagina (principal); N73.9 Female pelvic inflammatory disease, unspecified; F17.200 Nicotine dependence, unspecified, uncomplicated; Z71.6 Tobacco abuse counseling; Z79.899 Other long term (current) drug therapy
CPT/HCPCS: 81001; 99283

== ENCOUNTER 2020-11-27 13:14 | Outpatient (REF) | payer OTHER, SELFPAY ==
[2020-11-27 16:43] LABS: SARS COV2 PCR INHOUSE NEGATIVE (Negative)
== END 2020-11-27 13:15 | disposition home or self-care (01) ==
LOC: HO.LAB 13:14
PROVIDERS: Visit Provider Internal Medicine
DX: Z20.822 Contact with and (suspected) exposure to COVID-19 (principal)
CPT/HCPCS: C9803; U0003

== ENCOUNTER 2020-12-02 12:57 | Outpatient (REF) | payer OTHER, SELFPAY ==
[2020-12-02 13:16] LABS: COVID-19 Test Positive (Negative)
== END 2020-12-02 12:58 | disposition home or self-care (01) ==
LOC: HO.LAB 12:57
PROVIDERS: Visit Provider Internal Medicine
DX: Z20.822 Contact with and (suspected) exposure to COVID-19 (principal)
CPT/HCPCS: 36415; 87635; C9803

== ENCOUNTER 2020-12-11 15:15 | Outpatient (REF) | payer OTHER, SELFPAY | END 2020-12-11 15:16 | disposition home or self-care (01) | LOC: HO.LAB 15:15 | PROVIDERS: Visit Provider Internal Medicine | DX: Z20.822 Contact with and (suspected) exposure to COVID-19 (principal) | CPT/HCPCS: C9803; U0003; U0005 ==

== ENCOUNTER 2020-12-15 12:46 | Outpatient (REF) | payer OTHER, SELFPAY ==
[2020-12-15 13:05] LABS: COVID-19 Test Negative (Negative)
== END 2020-12-15 12:47 | disposition home or self-care (01) ==
LOC: HO.LAB 12:46
PROVIDERS: Visit Provider Internal Medicine
DX: Z20.822 Contact with and (suspected) exposure to COVID-19 (principal)
CPT/HCPCS: 36415; 87635; C9803

== ENCOUNTER 2021-01-01 05:44 | Emergency (ER) | payer OTHER, SELFPAY ==
--- NOTE | ~2021-01-01 | XR_ITS ---
EXAMINATION: XR WRIST, LEFT CLINICAL INFORMATION: Trauma. Fall. COMPARISON: Right hand 09/01/2020 TECHNIQUE: PA, lateral, and oblique views of the left wrist. FINDINGS: The ulnar styloid is discontinuous but well corticated. This could represent an anatomic variant or an old healed fracture. No acute distal radial fracture. Minor degenerative changes in the radiocarpal joint with subchondral sclerosis along the articular surface of the distal radius. No acute fracture or dislocation. XR/XR wrist LT min 3V IMPRESSION: No acute bone, joint or soft tissue abnormality.
--- NOTE | ~2021-01-01 | XR_ITS ---
EXAMINATION: LEFT SHOULDER, LEFT HUMERUS AND LEFT HAND. CLINICAL INFORMATION: Fall. COMPARISON: None TECHNIQUE: 3 views left hand. 3 views left shoulder and 2 views left humerus FINDINGS: LEFT HUMERUS: There is no visible acute fracture, dislocation or subluxation. LEFT SHOULDER: There is loss of left AC joint space with periarticular spurring. The glenohumeral joint space is normal. The soft tissues are normal. LEFT HAND: There is old ulnar styloid process nonunited fracture. There is no acute fracture, dislocation or subluxation. The soft tissues are normal. XR/XR humerus LT IMPRESSION: Unremarkable left hand, left shoulder and left humerus.
--- NOTE | ~2021-01-01 | XR_ITS ---
EXAMINATION: LEFT SHOULDER, LEFT HUMERUS AND LEFT HAND. CLINICAL INFORMATION: Fall. COMPARISON: None TECHNIQUE: 3 views left hand. 3 views left shoulder and 2 views left humerus FINDINGS: LEFT HUMERUS: There is no visible acute fracture, dislocation or subluxation. LEFT SHOULDER: There is loss of left AC joint space with periarticular spurring. The glenohumeral joint space is normal. The soft tissues are normal. LEFT HAND: There is old ulnar styloid process nonunited fracture. There is no acute fracture, dislocation or subluxation. The soft tissues are normal. XR/XR hand LT min 3V IMPRESSION: Unremarkable left hand, left shoulder and left humerus.
--- NOTE | ~2021-01-01 | XR_ITS ---
EXAMINATION: LEFT SHOULDER, LEFT HUMERUS AND LEFT HAND. CLINICAL INFORMATION: Fall. COMPARISON: None TECHNIQUE: 3 views left hand. 3 views left shoulder and 2 views left humerus FINDINGS: LEFT HUMERUS: There is no visible acute fracture, dislocation or subluxation. LEFT SHOULDER: There is loss of left AC joint space with periarticular spurring. The glenohumeral joint space is normal. The soft tissues are normal. LEFT HAND: There is old ulnar styloid process nonunited fracture. There is no acute fracture, dislocation or subluxation. The soft tissues are normal. XR/XR shoulder LT min 2V IMPRESSION: Unremarkable left hand, left shoulder and left humerus.
[2021-01-01 06:11] VITALS: BP 100/60; PULSE 72; RESP 16; TEMP 37.2; O2SAT 98; BMI 24.2
--- NOTE | 2021-01-01 06:57 | ED_ITS ---
HPI - Fall General Chief Complaint: Fall Stated Complaint: Fall Time Seen by Provider: 01/01/21 06:57 Source: patient Mode of arrival: ambulatory History of Present Illness HPI Narrative: 50-year-old female who states that she has suffered a mechanical fall landing on her left side with pain to the left upper extremity denies any head strike or loss of consciousness. Denies any recent fevers, chills, urinary symptoms, shortness of breath or palpitations. Related Data Previous Rx's Medication Instructions Recorded bisacodyl [Ducodyl (bisacodyl)] 5 mg PO BEDTIME PRN #20 tab 08/16/20 polyethylene glycol 3350 [Miralax] 17 g PO DAILY PRN #30 ea 08/16/20 ibuprofen 600 mg PO Q6H PRN #20 tab 09/01/20 doxycycline hyclate 100 mg PO Q12H 10 Days #20 tab 10/17/20 metronidazole 500 mg PO BID 10 Days #20 tab 10/17/20 miconazole nitrate [Monistat 7] 1 appful VAGINAL BEDTIME 7 Days g 10/17/20 Allergies Allergy/AdvReac Type Severity Reaction Status Date / Time No Known Allergies Allergy Verified 01/01/21 06:14 Review of Systems Review of Systems: Pertinent positives and negatives as stated in HPI 10 point review of systems is otherwise negative. PMFSH Past Medical History Source: nursing notes reviewed Medical History Anxiety Depression ETOH abuse Social History Social History Alcohol intake: current Alcohol intake frequency: 3 or more drinks per day Alcohol type: beer Smoking Status: Current every day smoker Advance Directives: No Advance Directives Information Provided: No Physical Exam Vital Signs: Vital Signs: Last Vital Signs Temp 99.0 F 01/01/21 06:11 Pulse 72 01/01/21 06:11 Resp 16 01/01/21 06:11 BP 100/60 01/01/21 06:11 Pulse Ox 98 01/01/21 06:11 Body Mass Index 24.2 VITAL SIGNS: Reviewed. GENERAL: Well developed, well nourished, in no acute distress. HEAD: Normocephalic/atraumatic EYES: PERRLA, EOMI NOSE: Nares patent bilateral OROPHARYNX: no oral lesions noted, posterior pharynx clear NECK: Supple, no adenopathy LUNGS: Normal breath sounds. No adventitious sounds or accessory muscle use. SpO2<98> CARDIOVASCULAR: Regular rate and rhythm without noted murmurs ABDOMEN: Soft, non-tender, non-distended with bowel sounds. LEFT UPPER EXTREMITY: No noted deformities, capillary refill less than 3 seconds, neurovascularly intact with 2+ palpable pulses at radius and ulna NEUROLOGIC: Alert and oriented x 4. Course Course Course Narrative: 50-year-old female with history and clinical presentation consistent with mechanical fall had no evidence to suggest infectious/anemia in etiology. No noted deformities but will evaluate with radiographs and dispo as appropriate. Combination analgesics were provided for pain. Review of all investigations and on re-evaluation there are no acute findings to suggest fracture or dislocation and patient has had significant improvement in pain with combination analgesics. She was informed of all results findings at the bedside. In discharged in stable condition Discharge Plan Discharge Clinical Impression: Contusion of soft tissue Patient Disposition: Home, Self-Care Instructions: Contusion in Adults (ED) Additional Instructions: Return to the emergency department if you experience any acute worsening of your symptoms. Prescriptions: No Action polyethylene glycol 3350 [Miralax] 17 gram powder in packet 17 g PO DAILY PRN (Reason: constipation) Qty: 30 RF: 0 bisacodyl [Ducodyl (bisacodyl)] 5 mg tablet,delayed release (DR/EC) 5 mg PO BEDTIME PRN (Reason: constipation) Qty: 20 RF: 0 ibuprofen 600 mg tablet 600 mg PO Q6H PRN (Reason: pain) Qty: 20 RF: 0 doxycycline hyclate 100 mg tablet 100 mg PO Q12H 10 Days Qty: 20 RF: 0 metronidazole 500 mg tablet 500 mg PO BID 10 Days Qty: 20 RF: 0 miconazole nitrate [Monistat 7] 2 % cream 1 appful vaginal BEDTIME 7 Days RF: 0 Referrals: Shawnee Delgado MD [Primary Care Provider] - 2 days Print Language: Portuguese
[2021-01-01] MEDS: Acetaminophen 325 MG TABLET 975 MG PO (07:06)
[2021-01-01] MEDS: Ketorolac Tromethamine 15 MG/ML VIAL IM (07:07)
== END 2021-01-01 08:02 | disposition home or self-care (01) ==
PROVIDERS: Emergency Provider Student in an Organized Health Care Education/Training Program; PCP Internal Medicine
DX: S40.022A Contusion of left upper arm, initial encounter (principal); W10.8XXA Fall (on) (from) other stairs and steps, initial encounter; Y93.89 Activity, other specified; Y92.038 Other place in apartment as the place of occurrence of the external cause; Y99.9 Unspecified external cause status
CPT/HCPCS: 73030; 73060; 73110; 73130; 96372; 99283; 99284; J1885

== ENCOUNTER 2021-01-01 22:49 | Emergency (ER) | payer OTHER, SELFPAY ==
--- NOTE | ~2021-01-01 | XR_ITS ---
EXAMINATION: XR ANKLE, RIGHT CLINICAL INFORMATION: Right ankle pain and swelling after fall. COMPARISON: None TECHNIQUE: AP, lateral, and mortise views of the right ankle. FINDINGS: There is marked soft tissue swelling laterally. A fracture is not visualized. The ankle mortise appears stable. An ankle joint effusion is present. XR/XR ankle RT 2V IMPRESSION: Marked soft tissue swelling laterally along with joint effusion. No fracture is seen.
[2021-01-01 22:51] VITALS: BP 131/79; PULSE 88; RESP 18; TEMP 36.7; O2SAT 98; BMI 24.2
--- NOTE | 2021-01-01 23:58 | ED_ITS ---
HPI - Extremity Injury (Lower) General Chief Complaint: Extremity Injury, Lower Stated Complaint: Right ankle pain Time Seen by Provider: 01/01/21 23:58 Source: patient Mode of arrival: ambulatory Limitations: no limitations History of Present Illness HPI Narrative: 50-year-old female presents with right ankle pain and swelling after a trip and fall. She states that she did not hit her head, did not have any prodrome symptoms, and has no other complaints at this time. MD complaint: ankle injury Onset (ago): day(s) (1) Injury: Right: ankle Type of Injury: inversion Place: home Severity: moderate Severity scale (1-10): 7 Relieving factors: immobilization and rest Exacerbating factors: weight bearing, movement and palpation Context: fall Associated symptoms: swelling and able to partially bear weight Other symptoms: none Treatments prior to arrival: cold therapy and NSAIDS Related Data Previous Rx's Medication Instructions Recorded bisacodyl [Ducodyl (bisacodyl)] 5 mg PO BEDTIME PRN #20 tab 08/16/20 polyethylene glycol 3350 [Miralax] 17 g PO DAILY PRN #30 ea 08/16/20 ibuprofen 600 mg PO Q6H PRN #20 tab 09/01/20 doxycycline hyclate 100 mg PO Q12H 10 Days #20 tab 10/17/20 metronidazole 500 mg PO BID 10 Days #20 tab 10/17/20 miconazole nitrate [Monistat 7] 1 appful VAGINAL BEDTIME 7 Days g 10/17/20 ibuprofen 600 mg PO Q6H PRN #60 tab 01/02/21 Allergies Allergy/AdvReac Type Severity Reaction Status Date / Time No Known Allergies Allergy Verified 01/01/21 06:14 Review of Systems Review of Systems: Constitutional: No Fever, No Chills ENT/Mouth: No Ear Pain, No Hoarseness, No sore throat Eyes: No Eye Pain, No Swelling, No Redness, No Foreign Body Cardiovascular: No Chest Pain, No SOB Respiratory: No Cough, No Dyspnea Gastrointestinal: No Nausea, No Vomiting, No Diarrhea, No abdominal Pain Genitourinary: No Dysuria, No Hematuria Musculoskeletal: positive right ankle swelling, bruising and pain, No Myalgias Skin: No Skin lacerations, No rash Neuro: No Weakness, No Numbness, No Paresthesias, No Loss of Consciousness, No Dizziness, No Headache Psych: No Anxiety/Panic, No Depression Heme/Lymph: no easy bruising, no Lymphadenopathy Endocrine: No Polyuria, No Polydipsia Yes all other systems are reviewed and are negative [facility] Past Medical History Attestation statement: The following information was validated with the patient. Source: old records reviewed Medical History Anxiety Depression ETOH abuse Social History Social History Alcohol intake: current Alcohol intake frequency: 3 or more drinks per day Alcohol type: beer Smoking Status: Current every day smoker Advance Directives: No Patient : No Physical Exam Vital Signs: Vital Signs: Last Vital Signs Temp 98.1 F 01/01/21 22:51 Pulse 88 01/01/21 22:51 Resp 18 01/01/21 22:51 BP 131/79 01/01/21 22:51 Pulse Ox 98 01/01/21 22:51 Body Mass Index 24.2 Appearance: Alert. Oriented X3. No acute distress. Eyes: Pupils equal, round and reactive to light. ENT: Pharynx normal. Neck: Normal inspection. Neck supple. CVS: Normal heart rate and rhythm. Pulses normal. Respiratory: No respiratory distress. Breath sounds normal. Abdomen: Soft and nontender. Skin: Skin warm and dry. Normal skin color. Normal skin turgor. Extremities: Swelling, bruising noted to the right ankle, decreased range of motion flexion extension internal and external rotation secondary to swelling and pain. No crepitus. Pulses equal to bilateral lower extremities. Brisk capillary refill. Neuro: No motor deficit. No sensory deficit. Course Course Course Narrative: 50-year-old female presents with right ankle pain, swelling, and bruising. Patient does have decreased range of motion to that right lower extremity, is neurovascularly intact, brisk capillary refill, and equal pedal pulses. Plan of care is for x-ray X-ray negative for fracture, shows a joint effusion, physical exam is highly suspicious for ankle sprain. Will Martinez wrap air cast, and provide crutches. Patient will follow-up with orthopedics. Patient verbalized understanding of and agrees plan of care discharge home. MDM - Extremity Injury (Lower) Differential Diagnosis Differential diagnosis: Likely ankle sprain and strain and ankle fracture Medical Records Attestation: I reviewed the patient's medical records. Imaging Data Right ankle x-ray: Attestation: I personally reviewed and interpreted this imaging study as follows: Radiologist's impression: EXAMINATION: XR ANKLE, RIGHT CLINICAL INFORMATION: Right ankle pain and swelling after fall. COMPARISON: None TECHNIQUE: AP, lateral, and mortise views of the right ankle. FINDINGS: There is marked soft tissue swelling laterally. A fracture is not visualized. The ankle mortise appears stable. An ankle joint effusion is present. XR/XR ankle RT 2V IMPRESSION: Marked soft tissue swelling laterally along with joint effusion. No fracture is seen. Discharge Plan Discharge Clinical Impression: Ankle sprain and strain Effusion of ankle Qualifiers: Laterality: right Qualified Code(s): M25.471 - Effusion, right ankle Patient Disposition: Home, Self-Care Instructions: Ankle Sprain (ED), R.I.C.E. Treatment (ED), Swollen Ankle Joint (ED) Additional Instructions: Te evaluaron por las lesiones sufridas por jaylyn ca?da. El tobillo derecho es negativo para la fractura, sin embargo, tiene un esguince de tobillo con un derrame articular. Por favor, alan un seguimiento con ortopedia. Mantenga la envoltura Martinez y la f?stevan de aire en matos lugar para mayor comodidad. Por favor, use muletas para la ambulaci?n. Por favor, use Motrin para el manejo del dolor. Le recet? Motrin 600 mg cada 6 horas seg?n sea necesario para el manejo del dolor. Por favor, use hielo y elevaci?n para ayudar a reducir el dolor y la hinchaz?n. Heather por elegir josiah departamento de emergencias para matos evaluaci?n. Por favor, alan un seguimiento con el m?dico de atenci?n primaria seg?n sea necesario. Regrese al servicio de emergencias para cualquier s?ntoma nuevo, preocupante o empeorante. You were evaluated for injury sustained from a fall. Your right ankle is negative for fracture however you do have an ankle sprain with a joint effusion. Please follow-up with orthopedics. Keep the Martinez wrap and air splint in place for comfort. Please use crutches for ambulation. Please use Motrin for pain management. I prescribed Motrin 600 mg every 6 hours as needed for pain management. Please use ice and elevation to help reduce pain and swelling. Thank you for choosing this emergency department for evaluation. Please follow-up with primary care physician as needed. Return to the emergency department for any new, concerning, or worsening symptoms. Prescriptions: New ibuprofen 600 mg tablet 600 mg PO Q6H PRN (Reason: pain) Qty: 60 RF: 0 No Action polyethylene glycol 3350 [Miralax] 17 gram powder in packet 17 g PO DAILY PRN (Reason: constipation) Qty: 30 RF: 0 bisacodyl [Ducodyl (bisacodyl)] 5 mg tablet,delayed release (DR/EC) 5 mg PO BEDTIME PRN (Reason: constipation) Qty: 20 RF: 0 ibuprofen 600 mg tablet 600 mg PO Q6H PRN (Reason: pain) Qty: 20 RF: 0 doxycycline hyclate 100 mg tablet 100 mg PO Q12H 10 Days Qty: 20 RF: 0 metronidazole 500 mg tablet 500 mg PO BID 10 Days Qty: 20 RF: 0 miconazole nitrate [Monistat 7] 2 % cream 1 appful vaginal BEDTIME 7 Days RF: 0 Interventions: ED Discharge Assessment Last Done: 01/02/21 00:47 Discharge Date/Time: 01/02/21 00:48
[2021-01-02] MEDS: oxyCODONE HCl Immed Release 5 MG TABLET PO (00:18)
== END 2021-01-02 00:48 | disposition home or self-care (01) ==
PROVIDERS: Emergency Provider Internal Medicine; PCP Internal Medicine
DX: M25.471 Effusion, right ankle (principal); S93.401A Sprain of unspecified ligament of right ankle, initial encounter; S96.911A Strain of unspecified muscle and tendon at ankle and foot level, right foot, initial encounter; X50.1XXA Overexertion from prolonged static or awkward postures, initial encounter; Y93.89 Activity, other specified; Y92.038 Other place in apartment as the place of occurrence of the external cause; Y99.9 Unspecified external cause status
CPT/HCPCS: 73600; 99283

== ENCOUNTER 2021-01-05 09:11 | Outpatient (REF) | payer OTHER, SELFPAY ==
--- NOTE | ~2021-01-05 | XR_ITS ---
EXAMINATION: XR ANKLE, RIGHT CLINICAL INFORMATION: Pain right ankle and right foot. COMPARISON: Right ankle 01/01/2021. TECHNIQUE: AP, lateral, and mortise views of the right ankle. FINDINGS: The lateral malleolar soft tissue swelling has decreased since 01/01/2021. There is no visible fracture seen at this time. The ankle mortise and subtalar joints are normal. A small retrocalcaneal enthesophyte is noted. Anterior ankle joint effusion has improved. XR/XR ankle RT min 3V IMPRESSION: Improved anterior ankle joint effusion and lateral malleolar soft tissue swelling. There is no visible acute fracture seen.
== END 2021-01-05 09:12 | disposition home or self-care (01) ==
LOC: HO.HOSX 09:11
PROVIDERS: Visit Provider Physician Assistant
DX: S93.401A Sprain of unspecified ligament of right ankle, initial encounter (principal); M25.571 Pain in right ankle and joints of right foot
CPT/HCPCS: 73610; 99202

== ENCOUNTER 2021-02-17 15:29 | Outpatient (REF) | payer OTHER, SELFPAY ==
[2021-02-17 16:53] LABS: MANUAL DIFF FLAG NO
[2021-02-17 16:56] LABS: Basophils Percent Auto 0.6 % (0-2); Eosinophils Percent Auto 0.6 % (0-4); Hematocrit 42.4 % (37-47); Hemoglobin 14.3 g/dl (12.0-16.0); Imm Gran Abs Auto 0.01 X10*3/uL (0.00-0.03); Imm Gran Pct Auto 0.1 % (0.0-0.4); Lymphocytes Absolute Auto 1.7 X10*3/uL (1.2-4.9); Lymphocytes Percent Auto 24.1 % (20-40); Mean Corpuscular HGB Conc 33.7 g/dl (31.0-35.0); Mean Corpuscular Hemoglobin 32.5 pg (27.0-33.0); Mean Corpuscular Volume 96.4 fL (80-98); Mean Platelet Volume 10.3 fL (9.4-12.3); Monocytes Absolute Auto 0.5 X10*3/uL (0.1-1.2); Monocytes Percent Auto 6.7 % (2-11); Neutrophils Absolute Auto 4.7 X10*3/uL (2.0-8.3); Neutrophils Percent Auto 67.9 % (45-73); Platelet Count 302 X10*3/uL (160-400); Red Cell Distribution Width 14.5 % (11.0-16.0)
[2021-02-17 17:27] LABS: Alanine Aminotransferase 8 U/L (0-31); Albumin Level 4.6 g/dL (3.5-5.0); Alkaline Phosphatase 84 U/L (39-117); Anion Gap 15 (12-20); Aspartate Amino Transferase 20 U/L (5-31); Bilirubin Total 0.7 mg/dL (0.0-1.0); Blood Urea Nitrogen 8 mg/dL (9-16); Calcium 9.9 mg/dL (8.4-10.2); Carbon Dioxide 27 mmol/L (22-29); Chloride 103 mmol/L (96-108); Cholesterol 215 mg/dL; Estimated Glomerular Filt Rate > 60; Glucose Random 93 mg/dL (60-115); Potassium 4.3 mmol/L (3.3-5.1); Sodium 141 mmol/L (135-145); Total Protein 7.8 g/dL (6.5-8.0); Triglycerides 77 mg/dL
[2021-02-17 17:43] LABS: HDL Cholesterol 104 mg/dL; LDL Cholesterol Calculated 96 mg/dl
== END 2021-02-17 15:30 | disposition home or self-care (01) ==
LOC: HO.LAB 15:29
PROVIDERS: PCP Internal Medicine; Visit Provider Internal Medicine
DX: M79.641 Pain in right hand (principal); R74.01 Elevation of levels of liver transaminase levels; Z72.0 Tobacco use
CPT/HCPCS: 36415; 80053; 80061; 85025

== ENCOUNTER 2021-03-22 01:59 | Emergency (ER) | payer OTHER, SELFPAY ==
--- NOTE | ~2021-03-22 | XR_ITS ---
EXAMINATION: XR ANKLE, RIGHT CLINICAL INFORMATION: Fall, pain COMPARISON: 01/05/2021 TECHNIQUE: AP, lateral, and mortise views of the right ankle. FINDINGS: Osseous alignment is anatomic. No acute fracture is seen. Tiny posterior calcaneal spur is present. Lateral soft tissue swelling is noted. XR/XR ankle RT min 3V IMPRESSION: Lateral soft tissue swelling. No fracture identified.
[2021-03-22 02:08] VITALS: BP 120/82; PULSE 87; O2SAT 100
[2021-03-22 02:10] VITALS: BP 118/72; PULSE 82; RESP 16; TEMP 36.1; O2SAT 98; BMI 25.4
--- NOTE | 2021-03-22 02:25 | ED_ITS ---
HPI - Extremity Injury (Lower) General Chief Complaint: Extremity Injury, Lower Stated Complaint: fall,ankle pain Time Seen by Provider: 03/22/21 02:18 Source: patient Mode of arrival: EMS Limitations: no limitations History of Present Illness HPI Narrative: Patient comes emergency room complaining of right ankle pain. Patient states she sprained her ankle approximately 1 month ago, was doing well, healing. However, this morning she sprained her ankle again. Related Data Previous Rx's Medication Instructions Recorded bisacodyl [Ducodyl (bisacodyl)] 5 mg PO BEDTIME PRN #20 tab 08/16/20 polyethylene glycol 3350 [Miralax] 17 g PO DAILY PRN #30 ea 08/16/20 ibuprofen 600 mg PO Q6H PRN #20 tab 09/01/20 doxycycline hyclate 100 mg PO Q12H 10 Days #20 tab 10/17/20 metronidazole 500 mg PO BID 10 Days #20 tab 10/17/20 miconazole nitrate [Monistat 7] 1 appful VAGINAL BEDTIME 7 Days g 10/17/20 ibuprofen 600 mg PO Q6H PRN #60 tab 01/02/21 ibuprofen 600 mg PO TID PRN #14 tab 03/22/21 Allergies Allergy/AdvReac Type Severity Reaction Status Date / Time No Known Allergies Allergy Verified 03/22/21 02:09 Review of Systems Review of Systems: Constitutional : No Weight loss, No Fever, No Chills, No Night Sweats, No Fatigue, No Malaise ENT/Mouth : No Hearing loss, No Ear Pain, No Nasal Congestion, No Sinus Pain, No Hoarseness, No sore throat, No Rhinorrhea, No Swallowing Difficulty Eyes: No Eye Pain, No Swelling, No Redness, No Foreign Body, No Discharge, No Vision Changes Cardiovascular : No Chest Pain, No SOB, No Dyspnea on Exertion, No Orthopnea, No Edema, No Palpitations Respiratory : No Cough, No Sputum, No Wheezing, No Smoke Exposure, No Dyspnea Gastrointestinal : No Nausea, No Vomiting, No Diarrhea, No Constipation, No abdominal Pain, No Hematochezia, No Melena Genitourinary : no irregular bleeding, No Dysuria, No Urinary Frequency, No Hematuria, No Urinary Incontinence, No Urgency, No Flank Pain, No Urinary Flow Changes, No Hesitancy Musculoskeletal : Complaining of right ankle pain, No Myalgias, No Joint Swelling Skin : No Skin Lesions, No rash Neuro : No Weakness, No Numbness, No Paresthesias, No Loss of Consciousness, No Dizziness, No Headache Psych : No Anxiety/Panic, No Depression, No SI/HI/AH/VH, No Social Issues, Heme/Lymph: No Bruising, No Bleeding,No Lymphadenopathy Endocrine : No Polyuria, No Polydipsia, No Temperature Intolerance [facility] Past Medical History Medical History Anxiety Depression ETOH abuse Social History Social History (Updated 01/05/21 @ 14:08 by Kendra Ruff) Alcohol intake: current Alcohol intake frequency: 3 or more drinks per day Alcohol type: beer Advance Directives: No Advance Directives Information Provided: Yes Patient : No Current occupational status: disabled Current occupation: rt knee Physical Exam Vital Signs: Vital Signs: Last Vital Signs Temp 97 F 03/22/21 02:10 Pulse 82 03/22/21 02:10 Resp 16 03/22/21 02:10 BP 118/72 03/22/21 02:10 Pulse Ox 98 03/22/21 02:10 Body Mass Index 25.4 Appearance: Alert. Oriented X3. No acute distress. Eyes: Pupils equal, round and reactive to light. ENT: Pharynx normal. Neck: Normal inspection. Neck supple. No lymph nodes noted. No crepitus CVS: Normal heart rate and rhythm. Pulses normal. Normal S1 and S2 Respiratory: No respiratory distress. Breath sounds normal. No Wheezing. No rales Abdomen: Soft and nontender. No rigidity. No distention. good BS x4 Skin: Skin warm and dry. Normal skin color. Normal skin turgor. Extremities: No lower extremity edema. Complaining of right ankle pain in the lateral malleolus, No Lacerations. No Rash Neuro: Oriented X 3. No motor deficit. No sensory deficit. Moving all extermities. No slurred speech. Course Course Course Narrative: I discussed the x-ray with the patient, patient does not have any acute fracture. MDM - Extremity Injury (Lower) Imaging Data Ankle x-ray: Radiologist's impression: Osseous alignment is anatomic. No acute fracture is seen. Tiny posterior calcaneal spur is present. Lateral soft tissue swelling is noted. XR/XR ankle RT min 3V IMPRESSION: Lateral soft tissue swelling. No fracture identified. Discharge Plan Discharge Clinical Impression: Ankle sprain and strain Patient Disposition: Home, Self-Care Instructions: Ankle Sprain (ED) Additional Instructions: Please follow-up with your primary care physician tomorrow. If you have any worsening or new symptoms, please return to the emergency room or call 911 Prescriptions: New ibuprofen 600 mg tablet 600 mg PO TID PRN (Reason: pain) Qty: 14 RF: 0 No Action polyethylene glycol 3350 [Miralax] 17 gram powder in packet 17 g PO DAILY PRN (Reason: constipation) Qty: 30 RF: 0 bisacodyl [Ducodyl (bisacodyl)] 5 mg tablet,delayed release (DR/EC) 5 mg PO BEDTIME PRN (Reason: constipation) Qty: 20 RF: 0 ibuprofen 600 mg tablet 600 mg PO Q6H PRN (Reason: pain) Qty: 20 RF: 0 doxycycline hyclate 100 mg tablet 100 mg PO Q12H 10 Days Qty: 20 RF: 0 metronidazole 500 mg tablet 500 mg PO BID 10 Days Qty: 20 RF: 0 miconazole nitrate [Monistat 7] 2 % cream 1 appful vaginal BEDTIME 7 Days RF: 0 ibuprofen 600 mg tablet 600 mg PO Q6H PRN (Reason: pain) Qty: 60 RF: 0
== END 2021-03-22 04:45 | disposition home or self-care (01) ==
PROVIDERS: Emergency Provider Emergency Medicine; PCP Internal Medicine
DX: S93.401A Sprain of unspecified ligament of right ankle, initial encounter (principal); S96.911A Strain of unspecified muscle and tendon at ankle and foot level, right foot, initial encounter; W10.1XXA Fall (on)(from) sidewalk curb, initial encounter; Y93.01 Activity, walking, marching and hiking; Y92.480 Sidewalk as the place of occurrence of the external cause; Y99.9 Unspecified external cause status
CPT/HCPCS: 73610; 99283

== ENCOUNTER 2021-11-02 22:33 | Emergency (ER) | payer OTHER, SELFPAY ==
--- NOTE | 2021-11-02 | ECG_ITS ---
Test Reason : CP Blood Pressure : / mmHG Vent. Rate : 088 BPM Atrial Rate : 088 BPM P-R Int : 154 ms QRS Dur : 080 ms QT Int : 364 ms P-R-T Axes : 052 033 029 degrees QTc Int : 440 ms Normal sinus rhythm Normal ECG When compared with ECG of 05-JAN-2018 22:54, No significant change was found Referred By: Generic ED Physician Electronically Signed By:HERB HOLGUIN MD
[2021-11-02 22:37] VITALS: BP 138/89; PULSE 86; RESP 18; TEMP 36.6; O2SAT 94; BMI 24.4
[2021-11-02 23:10] LABS: MANUAL DIFF FLAG NO
[2021-11-02 23:11] LABS: Basophils Percent Auto 0.4 % (0-2); Eosinophils Absolute Auto 0.1 X10*3/uL (0.0-0.4); Eosinophils Percent Auto 1.6 % (0-4); Hematocrit 38.3 % (37.0-47.0); Hemoglobin 13.2 g/dl (12.0-16.0); Imm Gran Abs Auto 0.02 X10*3/uL (0.00-0.03); Imm Gran Pct Auto 0.3 % (0.0-0.4); Lymphocytes Absolute Auto 2.5 X10*3/uL (1.2-4.9); Lymphocytes Percent Auto 34.9 % (20-40); Mean Corpuscular HGB Conc 34.5 g/dl (31.0-35.0); Mean Corpuscular Hemoglobin 32.8 pg (27.0-33.0); Mean Corpuscular Volume 95.3 fL (80.0-98.0); Mean Platelet Volume 9.8 fL (9.4-12.3); Monocytes Absolute Auto 0.5 X10*3/uL (0.1-1.2); Monocytes Percent Auto 6.8 % (2-11); Neutrophils Absolute Auto 3.9 x10*3/uL (2.0-8.3); Platelet Count 276 X10*3/uL (160-400); Red Blood Count 4.02 X10*6/uL (4.20-5.50); Red Cell Distribution Width 13.6 % (11.0-16.0)
[2021-11-02 23:25] LABS: Anion Gap 11 (12-20); Blood Urea Nitrogen 9 mg/dL (9-16); Calcium 9.3 mg/dL (8.4-10.2); Carbon Dioxide 26 mmol/L (22-29); Chloride 107 mmol/L (96-108); Creatinine Clr Calc Pharmacy 69.2; Estimated Glomerular Filt Rate > 60; Glucose Random 85 mg/dL (60-115); Potassium 4.3 mmol/L (3.3-5.1); Sodium 140 mmol/L (135-145)
[2021-11-02 23:32] LABS: Troponin-I High Sensitivity < 3.5 ng/L (<3.5-17.0)
[2021-11-03 02:14] VITALS: BP 102/65; PULSE 77; RESP 12; TEMP 36.7; O2SAT 98
[2021-11-03] MEDS: Acetaminophen 325 MG TABLET 975 MG PO (02:55)
--- NOTE | 2021-11-03 02:55 | ED.GENADULT ---
HPI - General Adult General Chief complaint: General Medical Stated complaint: L arm, chest and neck pain Time Seen by Provider: 11/03/21 02:11 Source: patient Mode of arrival: ambulatory History of Present Illness HPI narrative: 51-year-old female presents with elbow pain that is not been associated with fever, chills, shortness of breath, chest pain/palpitations. Patient reports numbness/tingling into distal left hand and fingers. But also reports that it has radiated into her left shoulder. She denies any falls or recent injuries. Patient denies any recent onset sore throat, cough. Related Data Previous Rx's Medication Instructions Recorded bisacodyl 5 mg tablet,delayed 5 mg PO BEDTIME PRN #20 tab 08/16/20 release (Ducodyl (bisacodyl)) polyethylene glycol 3350 17 gram 17 g PO DAILY PRN #30 ea 08/16/20 oral powder packet (Miralax) ibuprofen 600 mg tablet 600 mg PO Q6H PRN #20 tab 09/01/20 doxycycline hyclate 100 mg tablet 100 mg PO Q12H 10 Days #20 tab 10/17/20 metronidazole 500 mg tablet 500 mg PO BID 10 Days #20 tab 10/17/20 miconazole nitrate 2 % vaginal 1 appful VAGINAL BEDTIME 7 Days g 10/17/20 cream (Monistat 7) ibuprofen 600 mg tablet 600 mg PO Q6H PRN #60 tab 01/02/21 ibuprofen 600 mg tablet 600 mg PO TID PRN #14 tab 03/22/21 Allergies Allergy/AdvReac Type Severity Reaction Status Date / Time No Known Allergies Allergy Verified 11/02/21 22:37 Review of Systems Review of Systems: Pertinent positives and negatives as stated in HPI 10 point review of systems is otherwise negative. [facility] Past Medical History Source: nursing notes reviewed Medical History Anxiety Depression ETOH abuse Social History Social History Alcohol intake: current Alcohol intake frequency: 3 or more drinks per day Alcohol type: beer Advance Directives: No Current occupational status: disabled Current occupation: rt knee Physical Exam ED Vital Signs: Vital Signs - 24 hr 11/02/21 22:37 11/03/21 02:14 Temperature 97.9 F 98.0 F Pulse Rate 86 77 Respiratory Rate 18 12 Blood Pressure 138/89 102/65 Pulse Oximetry 94 98 BMI result Body Mass Index 24.4 VITAL SIGNS: Reviewed. GENERAL: Well developed, well nourished, in no acute distress. HEAD: Normocephalic/atraumatic EYES: PERRLA, EOMI EARS: Ext canals without abnormality OROPHARYNX: no oral lesions noted, posterior pharynx clear LUNGS: Normal breath sounds. No adventitious sounds or accessory muscle use. SpO2<98> CARDIOVASCULAR: Regular rate and rhythm without noted murmurs, no JVD or lower extremity edema. ABDOMEN: Soft, non-tender, non-distended with bowel sounds. MUSCULOSKELETAL: No tenderness, deformities, or effusions noted on gross inspection. EXTREMITIES: No cyanosis, clubbing or edema;LUE: There is no erythema, induration, swelling, effusion, ecchymosis, deformity noted at either the elbow/shoulder/wrist, neurovascular is intact distally, capillary refill is less than 3 seconds, hand director of [employer] is 5/5 for strength. On palpation of shoulder there is no pain, there is some discomfort on palpation of the elbow. SKIN: Inspection of the skin reveals no rashes NEUROLOGIC: Alert and oriented x 4. Strength and sensation to light touch were grossly intact x 4. Course Course Course Narrative: 51-year-old female with history and clinical presentation suggestive of possible tennis elbow or radicular pain in combination with review of all investigations there is no clinical suspicion for PE (PERC negative), DVT, cellulitis, and suspect that patient may be experiencing recurrence of her elbow tendonitis. Medical Decision Making Lab Data Result diagrams: 11/02/21 23:02 11/02/21 23:02 Labs: Lab Results 11/02/21 11/02/21 11/02/21 Range/Units 23:02 23:02 23:02 WBC 7.0 (4.8-10.8) X10*3/uL RBC 4.02 L (4.20-5.50) X10*6/uL Hgb 13.2 (12.0-16.0) g/dl Hct 38.3 (37.0-47.0) % MCV 95.3 (80.0-98.0) fL MCH 32.8 (27.0-33.0) pg MCHC 34.5 (31.0-35.0) g/dl RDW 13.6 (11.0-16.0) % Plt Count 276 (160-400) X10*3/uL MPV 9.8 (9.4-12.3) fL Immature Gran % (Auto) 0.3 (0.0-0.4) % Neut % (Auto) 56.0 (45-73) % Lymph % (Auto) 34.9 (20-40) % [place] % (Auto) 6.8 (2-11) % Eos % (Auto) 1.6 (0-4) % Baso % (Auto) 0.4 (0-2) % Lymph # (Auto) 2.5 (1.2-4.9) X10*3/uL [place] # (Auto) 0.5 (0.1-1.2) X10*3/uL Eos # (Auto) 0.1 (0.0-0.4) X10*3/uL Baso # (Auto) 0.0 (0.0-0.2) X10*3/uL Abs Immat Gran (auto) 0.02 (0.00-0.03) X10*3/uL Absolute Neuts (auto) 3.9 (2.0-8.3) x10*3/uL Absolute Nucleated RBC 0.000 (0.0-0.012) X10*3/uL Nucleated RBC % (auto) 0.0 (0.0-0.2) /100WBC Sodium 140 (135-145) mmol/L Potassium 4.3 (3.3-5.1) mmol/L Chloride 107 (96-108) mmol/L Carbon Dioxide 26 (22-29) mmol/L Anion Gap 11 L (12-20) BUN 9 (9-16) mg/dL Creatinine 0.90 (0.5-1.4) mg/dL Estim Creat Clear Calc 69.2 Estimated GFR > 60 Random Glucose 85 (60-115) mg/dL Calcium 9.3 D (8.4-10.2) mg/dL Troponin I High Sens < 3.5 (<3.5-17.0) ng/L ECG Data Attestation: I personally reviewed and interpreted this ECG as follows: Prior ECG tracings: available for review Interpretation: Normal sinus rhythm, HR-88, no STEMI, AL/QRS/QTC are within normal limits. Discharge Plan Discharge Clinical Impression: Left tennis elbow Patient Disposition: Home, Self-Care Instructions: Tennis Elbow (ED) Additional Instructions: 1. Resume all home medications as prescribed. 2. Please follow-up with your primary care provider in the next 2-3 days for re-evaluation further outpatient management. 3. Tylenol 1000 mg, orally, every 6 hours as needed for pain control. Do not exceed 4000 mg within 24 hours. 4. Recommend obtaining a ?tennis elbow strap? that is available in every [facility]'s. Return to the ER for worsening symptoms. Prescriptions: No Action polyethylene glycol 3350 [Miralax] 17 gram powder in packet 17 g PO DAILY PRN (Reason: constipation) Qty: 30 0RF bisacodyl [Ducodyl (bisacodyl)] 5 mg tablet,delayed release (DR/EC) 5 mg PO BEDTIME PRN (Reason: constipation) Qty: 20 0RF ibuprofen 600 mg tablet 600 mg PO Q6H PRN (Reason: pain) Qty: 20 0RF doxycycline hyclate 100 mg tablet 100 mg PO Q12H 10 Days Qty: 20 0RF metronidazole 500 mg tablet 500 mg PO BID 10 Days Qty: 20 0RF miconazole nitrate [Monistat 7] 2 % cream 1 appful vaginal BEDTIME 7 Days 0RF ibuprofen 600 mg tablet 600 mg PO Q6H PRN (Reason: pain) Qty: 60 0RF ibuprofen 600 mg tablet 600 mg PO TID PRN (Reason: pain) Qty: 14 0RF
[2021-11-03] MEDS: Ketorolac Tromethamine 15 MG/ML VIAL IM (02:56)
[2021-11-03] MEDS: Magnesium Hydrox/Alum Hydrox 30 ML ORAL.SUSP PO (03:22)
[2021-11-03] MEDS: Lidocaine HCl Viscous 2 % 15 ML SOLUTION 10 ML MUCOUS MEM (03:22)
== END 2021-11-03 03:43 | disposition home or self-care (01) ==
PROVIDERS: Emergency Provider Student in an Organized Health Care Education/Training Program
DX: M77.12 Lateral epicondylitis, left elbow (principal); M25.522 Pain in left elbow
CPT/HCPCS: 36415; 80048; 84484; 85025; 93005; 96372; 99284; J1885

== ENCOUNTER 2021-11-26 15:15 | Outpatient (REF) | payer OTHER, SELFPAY ==
[2021-11-26 16:07] LABS: Alanine Aminotransferase 15 U/L (0-31); Albumin Level 4.3 g/dL (3.5-5.0); Alkaline Phosphatase 66 U/L (39-117); Anion Gap 12 (12-20); Aspartate Amino Transferase 20 U/L (5-31); Bilirubin Total 0.6 mg/dL (0.0-1.0); Blood Urea Nitrogen 10 mg/dL (9-16); Calcium 9.6 mg/dL (8.4-10.2); Carbon Dioxide 28 mmol/L (22-29); Chloride 104 mmol/L (96-108); Cholesterol 187 mg/dL; Estimated Glomerular Filt Rate > 60; Glucose Random 98 mg/dL (60-115); HDL Cholesterol 79 mg/dL; LDL Cholesterol Calculated 101 mg/dl; Potassium 3.5 mmol/L (3.3-5.1); Sodium 140 mmol/L (135-145); Total Protein 7.2 g/dL (6.5-8.0); Triglycerides 38 mg/dL
[2021-11-26 16:26] LABS: Thyroid Stimulating Hormone 1.25 uIU/mL (0.32-4.0)
[2021-11-27 08:03] LABS: HBc Num1 9.84 S/CO (0.00-0.79); HBsAGNum1 0.23 S/CO (0.00-0.99); HIV AB/AG Nonreactive (Nonreactive); HIV Num 1 0.07 S/CO (0.00-0.99); Hepatitis A Antibody IgM 0.27 Index (0-0.79); Hepatitis B Surface Antigen Negative (Negative); ~Hepatitis A Antibody IgM Nonreactive (Nonreactive)
[2021-11-27 08:08] LABS: Syphilis Screen Nonreactive (Nonreactive)
[2021-11-27 08:13] LABS: HBS Num1 222.47 mIU/mL (0-7.99); ~HepC Num1 0.13 S/CO (0.00-0.79); ~Hepatitis B Surface Antibody REACTIVE (Nonreactive); ~Hepatitis C Antibody Nonreactive (Nonreactive)
[2021-11-27 09:09] LABS: HBc Num2 9.86 S/CO; HBc Num3 10.11 S/CO; Hepatitis B Core Antibody Reactive (Nonreactive)
[2021-11-27 12:01] LABS: CT PCR NOT DETECTED (Not Detect.); NG PCR NOT DETECTED (Not Detect.)
== END 2021-11-26 15:16 | disposition home or self-care (01) ==
LOC: HO.LAB 15:15
PROVIDERS: PCP Internal Medicine; Visit Provider Internal Medicine
DX: Z11.3 Encounter for screening for infections with a predominantly sexual mode of transmission (principal); Z11.4 Encounter for screening for human immunodeficiency virus [HIV]; I10 Essential (primary) hypertension; F32.5 Major depressive disorder, single episode, in full remission; N89.8 Other specified noninflammatory disorders of vagina; Z72.0 Tobacco use
CPT/HCPCS: 80053; 80061; 84443; 86704; 86706; 86709; 86780; 86803; 87340; 87389; 87491; 87591

== ENCOUNTER 2022-01-12 02:55 | Emergency (ER) | payer OTHER, SELFPAY ==
[2022-01-12 03:04] VITALS: BP 140/86; PULSE 72; RESP 16; TEMP 36.8; O2SAT 100; BMI 23.5
[2022-01-12] MEDS: LORazepam 1 MG TABLET PO (03:54)
[2022-01-12 04:09] LABS: MANUAL DIFF FLAG NO
[2022-01-12 04:11] LABS: Basophils Absolute Auto 0.1 X10*3/uL (0.0-0.2); Basophils Percent Auto 0.5 % (0-2); Eosinophils Absolute Auto 0.1 X10*3/uL (0.0-0.4); Eosinophils Percent Auto 1.2 % (0-4); Hematocrit 42.8 % (37.0-47.0); Imm Gran Abs Auto 0.02 X10*3/uL (0.00-0.03); Imm Gran Pct Auto 0.2 % (0.0-0.4); Lymphocytes Absolute Auto 4.4 X10*3/uL (1.2-4.9); Lymphocytes Percent Auto 45.3 % (20-40); Mean Corpuscular Hemoglobin 32.6 pg (27.0-33.0); Mean Platelet Volume 9.6 fL (9.4-12.3); Monocytes Absolute Auto 0.6 X10*3/uL (0.1-1.2); Monocytes Percent Auto 6.2 % (2-11); Neutrophils Absolute Auto 4.6 x10*3/uL (2.0-8.3); Neutrophils Percent Auto 46.6 % (45-73); Platelet Count 305 X10*3/uL (160-400); Red Cell Distribution Width 13.1 % (11.0-16.0); White Blood Count 9.8 X10*3/uL (4.8-10.8)
[2022-01-12 04:12] LABS: Appearance Urine CLEAR; Color Urine STRAW; Glucose Urine UA NEG (NEG); Leukocyte Esterase Urine NEG (NEG); Nitrite Urine NEG (NEG); PH 5.5 (5.0-8.0); Specific Gravity - Urine <= 1.005 (1.005-1.025); Urine Blood NEG (NEG); Urine Ketones NEG (NEG); Urine Protein NEG (NEG-TRACE)
[2022-01-12 04:28] LABS: Ethanol 203 mg/dL
[2022-01-12 04:31] LABS: Amphetamine Screen Urine Not Detected (Not Detect); Barbiturates, Urine Not Detected (Not Detect); Benzodiazepines Screen Urine Not Detected (Not Detect); Cannabinoid Screen Urine Not Detected (Not Detect); Cocaine Screen Urine Not Detected (Not Detect); Fentanyl, urine Not Detected (Not Detect); Opiate Screen Urine Not Detected (Not Detect); Phencyclidine Screen Urine Not Detected (Not Detect)
[2022-01-12 04:32] LABS: Acetaminophen LAB < 1 mcg/mL (<30); Anion Gap 12 (12-20); Blood Urea Nitrogen 6 mg/dL (9-16); Calcium 9.7 mg/dL (8.4-10.2); Carbon Dioxide 25 mmol/L (22-29); Chloride 101 mmol/L (96-108); Creatinine Clr Calc Pharmacy 95.1; Estimated Glomerular Filt Rate > 60; Glucose Random 61 mg/dL (60-115); Potassium 3.6 mmol/L (3.3-5.1); Salicylate < 5.0 mg/dL (15-30); Sodium 134 mmol/L (135-145)
[2022-01-12 04:44] LABS: COVID-19 Test Negative (Negative)
--- NOTE | 2022-01-12 05:50 | PC.NURSE ---
Patient is currently in bed resting, patient requested to have her discharged back to her home, denied SI/HI/AVH, Ativan 1 mg po administered as ordered with + effect, patient will be clinically sober at 0800, patient is not yet seen by provider, denied distress observed/reported, VSS, will continue to monitor.
--- NOTE | 2022-01-12 07:21 | PC.NURSE ---
patient appears to remain asleep at p[resent, respirations are even and unlabored patient appears in no distress.
--- NOTE | 2022-01-12 07:29 | ED_ITS ---
HPI - Psych General Chief Complaint: Psychiatric Symptoms Stated Complaint: anxiety Time Seen by Provider: 01/12/22 07:29 Source: patient Mode of arrival: EMS History of Present Illness HPI Narrative: 51-year-old female arrives via ambulance with significant anxiety and depression which was triggered by the of her dog the day before yesterday. Patient otherwise denies any constitutional symptoms such as fever, chills, GI or sy mptoms. Patient denies any suicidal ideation, AVH, or homicidal ideation. Related Data Home Medications Medication Instructions Recorded Confirmed omeprazole 20 mg capsule,delayed 1 cap PO DAILY 01/12/22 01/12/22 release sertraline 50 mg tablet 1 tab PO DAILY 01/12/22 01/12/22 Allergies Allergy/AdvReac Type Severity Reaction Status Date / Time No Known Allergies Allergy Verified 11/02/21 22:37 Review of Systems Review of Systems: Pertinent positives and negatives as stated in HPI 10 point review of systems is otherwise negative. PMFSH Past Medical History Source: nursing notes reviewed Medical History Anxiety Depression ETOH abuse Social History Social History Alcohol intake: current Alcohol intake frequency: 3 or more drinks per day Alcohol type: beer Advance Directives: No Advance Directives Information Provided: No Current occupational status: disabled Current occupation: rt knee Physical Exam Vital Signs: Vital Signs: Last Vital Signs Temp 98.2 F 01/12/22 03:04 Pulse 72 01/12/22 03:04 Resp 16 01/12/22 03:04 BP 140/86 H 01/12/22 03:04 Pulse Ox 100 01/12/22 03:04 BMI result Body Mass Index 23.5 VITAL SIGNS: Reviewed. GENERAL: Well developed, well nourished, in no acute distress. HEAD: Normocephalic/atraumatic EYES: PERRLA, EOMI EARS: Ext canals without abnormality OROPHARYNX: no oral lesions noted, posterior pharynx clear LUNGS: Normal breath sounds. No adventitious sounds or accessory muscle use. SpO2<100> CARDIOVASCULAR: Regular rate and rhythm without noted murmurs ABDOMEN: Soft, non-tender, non-distended with bowel sounds. SKIN: Inspection of the skin reveals no rashes NEUROLOGIC: Alert and oriented x 4. Strength and sensation to light touch were grossly intact x 4. PSYCH: Anxiety, depression Course Course Course Narrative: 51-year-old female with history and clinical presentation consistent with anxiety and depression with mild intoxication prompted by the of her PET. Patient states that she feels sad as she has had the dog for a very long time. She is otherwise medically cleared for further evaluation by the behavioral team. Reevaluation(s) Reevaluation #1: Patient placed in physician observation because the patient needed more time for evaluation by the crisis team. At the time observation was started the patient's vital signs were stable, patient is alert and oriented, neuro: Nonfocal, CV RRR, lungs clear Time: 07:46 MDM - Psych Lab Data Result diagrams: 01/12/22 03:57 01/12/22 03:57 Labs: Lab Results 01/12/22 01/12/22 01/12/22 Range/Units 03:33 03:41 03:41 WBC (4.8-10.8) X10*3/uL RBC (4.20-5.50) X10*6/uL Hgb (12.0-16.0) g/dl Hct (37.0-47.0) % MCV (80.0-98.0) fL MCH (27.0-33.0) pg MCHC (31.0-35.0) g/dl RDW (11.0-16.0) % Plt Count (160-400) X10*3/uL MPV (9.4-12.3) fL Immature Gran % (Auto) (0.0-0.4) % Neut % (Auto) (45-73) % Lymph % (Auto) (20-40) % [place] % (Auto) (2-11) % Eos % (Auto) (0-4) % Baso % (Auto) (0-2) % Lymph # (Auto) (1.2-4.9) X10*3/uL [place] # (Auto) (0.1-1.2) X10*3/uL Eos # (Auto) (0.0-0.4) X10*3/uL Baso # (Auto) (0.0-0.2) X10*3/uL Abs Immat Gran (auto) (0.00-0.03) X10*3/uL Absolute Neuts (auto) (2.0-8.3) x10*3/uL Absolute Nucleated RBC (0.0-0.012) X10*3/uL Nucleated RBC % (auto) (0.0-0.2) /100WBC Sodium (135-145) mmol/L Potassium (3.3-5.1) mmol/L Chloride (96-108) mmol/L Carbon Dioxide (22-29) mmol/L Anion Gap (12-20) BUN (9-16) mg/dL Creatinine (0.5-1.4) mg/dL Estim Creat Clear Calc Estimated GFR Random Glucose (60-115) mg/dL Calcium (8.4-10.2) mg/dL Urine Color STRAW Urine Appearance CLEAR Urine pH 5.5 (5.0-8.0) Ur Specific [place] <= 1.005 (1.005-1.025) Urine Protein NEG (NEG-TRACE) MG/DL Urine Glucose (UA) NEG (NEG) MG/DL Urine Ketones NEG (NEG) MG/DL Urine Blood NEG (NEG) Urine Nitrite NEG (NEG) Ur Leukocyte Esterase NEG (NEG) Salicylates (15-30) mg/dL Urine Opiates Screen Not Detected (Not Detect) Urine Fentanyl Screen Not Detected (Not Detect) Acetaminophen (<30) mcg/mL Ur Barbiturates Screen Not Detected (Not Detect) Ur Phencyclidine Scrn Not Detected (Not Detect) Ur Amphetamines Screen Not Detected (Not Detect) U Benzodiazepines Scrn Not Detected (Not Detect) Urine Cocaine Screen Not Detected (Not Detect) U Marijuana (THC) Screen Not Detected (Not Detect) Ethyl Alcohol mg/dL COVID-19 ([facility]) Negative (Negative) COVID-19 Clin Com See Note 01/12/22 01/12/22 01/12/22 Range/Units 03:57 03:57 03:57 WBC 9.8 (4.8-10.8) X10*3/uL RBC 4.60 (4.20-5.50) X10*6/uL Hgb 15.0 (12.0-16.0) g/dl Hct 42.8 (37.0-47.0) % MCV 93.0 (80.0-98.0) fL MCH 32.6 (27.0-33.0) pg MCHC 35.0 (31.0-35.0) g/dl RDW 13.1 (11.0-16.0) % Plt Count 305 (160-400) X10*3/uL MPV 9.6 (9.4-12.3) fL Immature Gran % (Auto) 0.2 (0.0-0.4) % Neut % (Auto) 46.6 (45-73) % Lymph % (Auto) 45.3 H (20-40) % [place] % (Auto) 6.2 (2-11) % Eos % (Auto) 1.2 (0-4) % Baso % (Auto) 0.5 (0-2) % Lymph # (Auto) 4.4 (1.2-4.9) X10*3/uL [place] # (Auto) 0.6 (0.1-1.2) X10*3/uL Eos # (Auto) 0.1 (0.0-0.4) X10*3/uL Baso # (Auto) 0.1 (0.0-0.2) X10*3/uL Abs Immat Gran (auto) 0.02 (0.00-0.03) X10*3/uL Absolute Neuts (auto) 4.6 (2.0-8.3) x10*3/uL Absolute Nucleated RBC 0.000 (0.0-0.012) X10*3/uL Nucleated RBC % (auto) 0.0 (0.0-0.2) /100WBC Sodium 134 L (135-145) mmol/L Potassium 3.6 (3.3-5.1) mmol/L Chloride 101 (96-108) mmol/L Carbon Dioxide 25 (22-29) mmol/L Anion Gap 12 (12-20) BUN 6 L (9-16) mg/dL Creatinine 0.68 (0.5-1.4) mg/dL Estim Creat Clear Calc 95.1 Estimated GFR > 60 Random Glucose 61 (60-115) mg/dL Calcium 9.7 (8.4-10.2) mg/dL Urine Color Urine Appearance Urine pH (5.0-8.0) Ur Specific [place] (1.005-1.025) Urine Protein (NEG-TRACE) MG/DL Urine Glucose (UA) (NEG) MG/DL Urine Ketones (NEG) MG/DL Urine Blood (NEG) Urine Nitrite (NEG) Ur Leukocyte Esterase (NEG) Salicylates < 5.0 L (15-30) mg/dL Urine Opiates Screen (Not Detect) Urine Fentanyl Screen (Not Detect) Acetaminophen < 1 (<30) mcg/mL Ur Barbiturates Screen (Not Detect) Ur Phencyclidine Scrn (Not Detect) Ur Amphetamines Screen (Not Detect) U Benzodiazepines Scrn (Not Detect) Urine Cocaine Screen (Not Detect) U Marijuana (THC) Screen (Not Detect) Ethyl Alcohol 203 mg/dL COVID-19 ([facility]) (Negative) COVID-19 Clin Com Discharge Plan Discharge Clinical Impression: Acute anxiety, Depression Patient Disposition: Still a Patient Prescriptions: No Action omeprazole 20 mg capsule,delayed release(DR/EC) 1 cap PO DAILY 0RF sertraline 50 mg tablet 1 tab PO DAILY 0RF
[2022-01-12 07:54] VITALS: BP 110/69; PULSE 88; RESP 14; TEMP 36.4; O2SAT 99
--- NOTE | 2022-01-12 09:54 | MHC.CARE ---
Pt is a 51 y/o Portuguese speaking female who is previously unknown to the CARE Team but is familiar to the ED through previous ED visits.? This appears to be her first such visit for crisis at this facility.? Today, patient presented to ED via ambulance with a chief complaint of elevated anxiety and depression triggered by of her dog the day before yesterday. Pt had been consuming alcoholic beverage to the point of intoxication and had a BAL of 203 at 0357AM.? Pt has been medically cleared and is being assessed by the CARE Team to determine appropriate treatment recommendations.? Pt reports no hx of inpatient hospitalization, suicide attempts, and substance use (beyond alcohol).? Pt stated she has a remote hx of depression ?Way long ago.?? Pt is on medication prescribed by her PCP, she reports being compliant with her medications as prescribed.? She does not presently have a therapist.? Pt is alert and oriented x4 and is assessed for risk in her room in the behavioral health pod of the ED.? She is slightly disheveled, appears older than her stated age, and is dressed in hospital attire.? She is engaged in the assessment and expresses that she is eager to be discharged.? Her speech and eye contact are unremarkable.? She does not appear delusional or experiencing symptoms of psychosis.? Her thought process is linear.? Pt reports fair sleep and appetite.? She describes her mood with a hand gesture that suggests ?So so.? ?She demonstrates a full range of affect.? She reports that she is experiencing depression and anxiety related to the passing of her dog that she had great affection for.? She denies SI, HI, , AVH and self-harm urges.? Pt denies any hx of the above. Plan is for pt to be discharged home with a referral to [facility] for a counselor and a follow up call by CARE on 01/13/22.? This disposition was discussed with and agreed upon by CARE Admitting Coordinator Nirmal LANGE, ED provider Chinyere and pt?s Nurse EVA Rodriguez.
--- NOTE | 2022-01-15 09:36 | MHC.CARE ---
CARE Team completed follow up.
== END 2022-01-12 10:23 | disposition home or self-care (01) ==
PROVIDERS: Emergency Provider Student in an Organized Health Care Education/Training Program; PCP Internal Medicine
DX: F33.1 Major depressive disorder, recurrent, moderate (principal); F41.1 Generalized anxiety disorder; F43.0 Acute stress reaction; F43.20 Adjustment disorder, unspecified; Z20.822 Contact with and (suspected) exposure to COVID-19; Z79.899 Other long term (current) drug therapy
CPT/HCPCS: 36415; 80048; 80143; 80179; 80307; 81003; 82077; 85025; 87635; 99284

== ENCOUNTER 2022-02-10 02:20 | Emergency (ER) | payer OTHER, SELFPAY ==
[2022-02-10 02:27] VITALS: BP 142/86; PULSE 82; RESP 18; TEMP 36.5; O2SAT 100; BMI 24.2
[2022-02-10 02:49] LABS: Appearance Urine CLEAR; Color Urine YELLOW; Glucose Urine UA NEG (NEG); Hematocrit 39.8 % (37.0-47.0); Hemoglobin 13.8 g/dl (12.0-16.0); Leukocyte Esterase Urine NEG (NEG); Mean Corpuscular HGB Conc 34.7 g/dl (31.0-35.0); Mean Corpuscular Hemoglobin 32.9 pg (27.0-33.0); Mean Corpuscular Volume 94.8 fL (80.0-98.0); Mean Platelet Volume 9.4 fL (9.4-12.3); Nitrite Urine NEG (NEG); Platelet Count 272 X10*3/uL (160-400); Red Cell Distribution Width 13.8 % (11.0-16.0); Specific Gravity - Urine <= 1.005 (1.005-1.025); Urine Blood NEG (NEG); Urine Ketones NEG (NEG); Urine Protein NEG (NEG-TRACE)
[2022-02-10 03:02] LABS: Bacteria Urine TRACE /LPF; RBC Urine 0-2 /HPF (0); Squamous Epithelial Cell Urine TRACE /LPF; WBC Urine 0-2 /HPF (0-4)
[2022-02-10 03:19] LABS: Alanine Aminotransferase 17 U/L (0-31); Albumin Level 4.2 g/dL (3.5-5.0); Alkaline Phosphatase 63 U/L (39-117); Anion Gap 14 (12-20); Aspartate Amino Transferase 26 U/L (5-31); Bilirubin Total 0.2 mg/dL (0.0-1.0); Blood Urea Nitrogen 7 mg/dL (9-16); Calcium 9.1 mg/dL (8.4-10.2); Carbon Dioxide 23 mmol/L (22-29); Chloride 99 mmol/L (96-108); Estimated Glomerular Filt Rate > 60; Glucose Random 94 mg/dL (60-115); Potassium 3.7 mmol/L (3.3-5.1); Sodium 132 mmol/L (135-145); Total Protein 7.1 g/dL (6.5-8.0)
--- NOTE | 2022-02-10 06:27 | ED.GENADULT ---
HPI - General Adult General Chief complaint: General Medical Stated complaint: lower back pain, sweating Time Seen by Provider: 02/10/22 06:21 Source: patient Mode of arrival: ambulatory Limitations: no limitations History of Present Illness HPI narrative: Patient comes to the emergency room for an unclear reason. Initially, she said to the triage nurse that she is here because she has back pain for 2 days, radiating down the right leg with no injury. However, when I spoke with the patient, patient states that she was here for anxiety provoked by a dog, now she feels better. Related Data Home Medications Medication Instructions Recorded Confirmed omeprazole 20 mg capsule,delayed 1 cap PO DAILY 01/12/22 01/19/22 release sertraline 50 mg tablet 1 tab PO DAILY 01/12/22 01/19/22 Allergies Allergy/AdvReac Type Severity Reaction Status Date / Time No Known Allergies Allergy Verified 11/02/21 22:37 Review of Systems Review of Systems: Constitutional : No Weight loss, No Fever, No Chills, No Night Sweats, No Fatigue, No Malaise ENT/Mouth : No Hearing loss, No Ear Pain, No Nasal Congestion, No Sinus Pain, No Hoarseness, No sore throat, No Rhinorrhea, No Swallowing Difficulty Eyes: No Eye Pain, No Swelling, No Redness, No Foreign Body, No Discharge, No Vision Changes Cardiovascular : No Chest Pain, No SOB, No Dyspnea on Exertion, No Orthopnea, No Edema, No Palpitations Respiratory : No Cough, No Sputum, No Wheezing, No Smoke Exposure, No Dyspnea Gastrointestinal : No Nausea, No Vomiting, No Diarrhea, No Constipation, No abdominal Pain, No Hematochezia, No Melena Genitourinary : no irregular bleeding, No Dysuria, No Urinary Frequency, No Hematuria, No Urinary Incontinence, No Urgency, No Flank Pain, No Urinary Flow Changes, No Hesitancy Musculoskeletal : No joint pain, No Myalgias, No Joint Swelling patient reported back pain to the nurse but not to me Skin : No Skin Lesions, No rash Neuro : No Weakness, No Numbness, No Paresthesias, No Loss of Consciousness, No Dizziness, No Headache Psych : Complaining of anxiety which resolved, No Depression, No SI/HI/AH/VH, No Social Issues, Heme/Lymph: No Bruising, No Bleeding,No Lymphadenopathy Endocrine : No Polyuria, No Polydipsia, No Temperature Intolerance PMFSH Past Medical History Medical History Anxiety Depression ETOH abuse GERD (gastroesophageal reflux disease) Renal calculi Surgical History Hx of straightening of nasal septum Social History Social History (Updated 01/19/22 @ 15:08 by Valeria Badillo RN) Alcohol intake: current Alcohol intake frequency: 3 or more drinks per day Alcohol type: beer Patient Tobacco Use Status: Current everyday Tobacco user Advance Directives: No Advance Directives Information Provided: Yes Current occupational status: disabled Current occupation: rt knee Physical Exam ED Vital Signs: Vital Signs - 24 hr 02/10/22 02:27 Temperature 97.7 F Pulse Rate 82 Respiratory Rate 18 Blood Pressure 142/86 H Pulse Oximetry 100 Oxygen Delivery Method Room Air BMI result Body Mass Index 24.2 Const Other: Appearance: Alert. Oriented X3. No acute distress. Eyes: Pupils equal, round and reactive to light. ENT: Pharynx normal. Neck: Normal inspection. Neck supple. No lymph nodes noted. No crepitus CVS: Normal heart rate and rhythm. Pulses normal. Normal S1 and S2 Respiratory: No respiratory distress. Breath sounds normal. No Wheezing. No rales Abdomen: Soft and nontender. No rigidity. No distention. Skin: Skin warm and dry. Normal skin color. Normal skin turgor. Extremities: No lower extremity edema. No Lacerations. No Rash Neuro: Oriented X 3. No motor deficit. No sensory deficit. Moving all extremities. No slurred speech. CN 2 through 12 grossly intact Psych: calm, cooperative, normal affect Course Course Course Narrative: Patient is no longer anxious. Patient did not want to address the back pain. Patient ready for discharge Medical Decision Making Lab Data Result diagrams: 02/10/22 02:39 02/10/22 02:39 Labs: Lab Results 02/10/22 02/10/22 02/10/22 Range/Units 02:39 02:39 02:39 WBC 10.0 (4.8-10.8) X10*3/uL RBC 4.20 (4.20-5.50) X10*6/uL Hgb 13.8 (12.0-16.0) g/dl Hct 39.8 (37.0-47.0) % MCV 94.8 (80.0-98.0) fL MCH 32.9 (27.0-33.0) pg MCHC 34.7 (31.0-35.0) g/dl RDW 13.8 (11.0-16.0) % Plt Count 272 (160-400) X10*3/uL MPV 9.4 (9.4-12.3) fL Absolute Nucleated RBC 0.000 (0.0-0.012) X10*3/uL Nucleated RBC % (auto) 0.0 (0.0-0.2) /100WBC Sodium 132 L (135-145) mmol/L Potassium 3.7 (3.3-5.1) mmol/L Chloride 99 (96-108) mmol/L Carbon Dioxide 23 (22-29) mmol/L Anion Gap 14 (12-20) BUN 7 L (9-16) mg/dL Creatinine 0.70 (0.5-1.4) mg/dL Estim Creat Clear Calc 89.0 Estimated GFR > 60 Random Glucose 94 (60-115) mg/dL Calcium 9.1 D (8.4-10.2) mg/dL Total Bilirubin 0.2 (0.0-1.0) mg/dL AST 26 (5-31) U/L ALT 17 (0-31) U/L Alkaline Phosphatase 63 (39-117) U/L Total Protein 7.1 (6.5-8.0) g/dL Albumin 4.2 (3.5-5.0) g/dL Urine Color YELLOW Urine Appearance CLEAR Urine pH 6.0 (5.0-8.0) Ur Specific [place] <= 1.005 (1.005-1.025) Urine Protein NEG (NEG-TRACE) MG/DL Urine Glucose (UA) NEG (NEG) MG/DL Urine Ketones NEG (NEG) MG/DL Urine Blood NEG (NEG) Urine Nitrite NEG (NEG) Ur Leukocyte Esterase NEG (NEG) Urine RBC 0-2 (0) /HPF Urine WBC 0-2 (0-4) /HPF Ur Squamous Epith Cells TRACE /LPF Urine Bacteria TRACE /LPF Discharge Plan Discharge Clinical Impression: Anxiety Patient Disposition: Home, Self-Care Instructions: Anxiety (ED) Additional Instructions: Please follow-up with your primary care physician tomorrow. If you have any worsening or new symptoms, please return to the emergency room or call 911 Prescriptions: No Action omeprazole 20 mg capsule,delayed release(DR/EC) 1 cap PO DAILY sertraline 50 mg tablet 1 tab PO DAILY
[2022-02-10 06:39] VITALS: RESP 20
--- NOTE | 2022-02-10 06:47 | PC.NURSE ---
pt a&o, no sob or chest pain. reviewed discharge instructions with pt. pt verbalized understandng.
== END 2022-02-10 06:48 | disposition home or self-care (01) ==
PROVIDERS: Emergency Provider Emergency Medicine; PCP Internal Medicine
DX: F41.9 Anxiety disorder, unspecified (principal)
CPT/HCPCS: 36415; 80053; 81001; 85027; 99283; 99284

== ENCOUNTER 2022-04-26 14:43 | Outpatient (REF) | payer OTHER, SELFPAY ==
--- NOTE | ~2022-04-26 | XR_ITS ---
EXAMINATION: XR HAND, RIGHT CLINICAL INFORMATION: Right hand deformity COMPARISON: Previous x-ray August 2020 TECHNIQUE: PA, lateral, and oblique views of the right hand. FINDINGS: Bone alignment is normal. No acute fracture or dislocation is seen. The joint spaces are normal. There is a soft tissue calcification adjacent to the radial side of the middle phalanx of the third finger at the PIP joint likely related to old trauma. Soft tissues are otherwise normal. XR/XR hand RT min 3V IMPRESSION: No acute fracture or dislocation.
== END 2022-04-26 14:44 | disposition home or self-care (01) ==
LOC: HO.XRAY 14:43
PROVIDERS: PCP Internal Medicine; Visit Provider Internal Medicine
DX: M79.641 Pain in right hand (principal)
CPT/HCPCS: 73130

== ENCOUNTER 2022-08-04 23:59 | Emergency (ER) | payer OTHER, SELFPAY ==
--- NOTE | ~2022-08-04 | XR_ITS ---
EXAMINATION: CHEST RADIOGRAPH, RIGHT HAND CLINICAL INFORMATION: Chest pain and laceration right hand COMPARISON: Right hand 04/26/2022, chest radiograph 05/07/2020 TECHNIQUE: Single view chest, 3 views right hand FINDINGS: No significant abnormalities seen involving the heart, lungs, mediastinum or bony thorax. There is one tiny area of periarticular calcification at the base of the middle phalanx of the third digit on its radial aspect unchanged from prior. No foreign bodies or fractures. XR/XR hand RT min 3V IMPRESSION: No acute intrathoracic disease. No acute abnormality right hand.
--- NOTE | ~2022-08-04 | XR_ITS ---
EXAMINATION: CHEST RADIOGRAPH, RIGHT HAND CLINICAL INFORMATION: Chest pain and laceration right hand COMPARISON: Right hand 04/26/2022, chest radiograph 05/07/2020 TECHNIQUE: Single view chest, 3 views right hand FINDINGS: No significant abnormalities seen involving the heart, lungs, mediastinum or bony thorax. There is one tiny area of periarticular calcification at the base of the middle phalanx of the third digit on its radial aspect unchanged from prior. No foreign bodies or fractures. XR/XR chest 1V IMPRESSION: No acute intrathoracic disease. No acute abnormality right hand.
[2022-08-05 00:03] VITALS: PULSE 98; O2SAT 100
--- NOTE | 2022-08-05 00:09 | ECG_ITS ---
Test Reason : CHEST PAIN Blood Pressure : / mmHG Vent. Rate : 067 BPM Atrial Rate : 067 BPM P-R Int : 194 ms QRS Dur : 090 ms QT Int : 404 ms P-R-T Axes : 065 035 024 degrees QTc Int : 426 ms Normal sinus rhythm Normal ECG When compared with ECG of 02-NOV-2021 22:50, No significant change was found Referred By: Ita Renae Electronically Signed By:HERB HOLGUIN MD
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
[2022-08-05 00:51] LABS: Basophils Absolute Auto 0.1 X10*3/uL (0.0-0.2); Basophils Percent Auto 0.6 % (0-2); Eosinophils Absolute Auto 0.1 X10*3/uL (0.0-0.4); Eosinophils Percent Auto 1.4 % (0-4); Hematocrit 42.2 % (37.0-47.0); Hemoglobin 14.5 g/dl (12.0-16.0); Imm Gran Abs Auto 0.04 X10*3/uL (0.00-0.03); Imm Gran Pct Auto 0.4 % (0.0-0.4); Lymphocytes Absolute Auto 3.5 X10*3/uL (1.2-4.9); Lymphocytes Percent Auto 37.4 % (20-40); MANUAL DIFF FLAG NO; Mean Corpuscular HGB Conc 34.4 g/dl (31.0-35.0); Mean Corpuscular Hemoglobin 32.4 pg (27.0-33.0); Mean Corpuscular Volume 94.2 fL (80.0-98.0); Mean Platelet Volume 9.6 fL (9.4-12.3); Monocytes Absolute Auto 0.6 X10*3/uL (0.1-1.2); Monocytes Percent Auto 6.3 % (2-11); Neutrophils Percent Auto 53.9 % (45-73); Platelet Count 270 X10*3/uL (160-400); Red Blood Count 4.48 X10*6/uL (4.20-5.50); Red Cell Distribution Width 13.2 % (11.0-16.0); White Blood Count 9.3 X10*3/uL (4.8-10.8)
[2022-08-05 00:52] VITALS: BMI 25.0
--- OUTSIDE RECORDS SUMMARY | 2022-08-05 01:04 | XMS_ITS | Continuity of Care Document ---
:1970 Author Organization [facility] Address [address] [place] [id number]- Care Team Providers Name Role Phone Shawnee Delgado MD Primary Care Physician [place] [facility] [place] - 02/06/[address] [address] Attending Physician: Shawnee Delgado MD Admitting Physician: Shawnee Delgado MD Referring Physician: Shawnee Delgado MD Allergies, Adverse Reactions, Alerts No Known Allergies Immunizations Given and Recorded Vaccine Date Status Refusal Reason influenza virus vaccine, inactivated1 10/29/10 Given tetanus/diphtheria/pertussis, acel(Tdap)2 10/29/10 Given 1Admin Note: MANUFACTURE BIOMEDICAL INFO SHEET GIVEN GIVEN W/O [id number] Note: GIVEN W/O INCIDENT INFO SHEET GIVEN Medications Ativan 0.5 mg oral tablet 0.5 tablet = 0.25 mg, By Mouth, 2 times a day, PRN as needed for anxiety, 0 Refills, Maintenance, 10/03/13 3:16:48, Tablet Start Date: 10/03/13 Status: Orderedibuprofen 800 mg oral tablet 800 mg, 1, tablet, By Mouth, 3 times a day, Start 2 days before your period. Take with food or milk., # 21 tablet, Refills 12, Tot. Refills 12, Maintenance, 11/07/17 14:41:43, Route to Pharmacy Electronically, NCPDP_ID-[id number], [facility] - [address] Start Date: 11/07/17 Stop Date: 02/06/18 Status: Orderedomeprazole 20 mg oral delayed release tablet 1 tablet = 20 mg, By Mouth, 2 times a day, # 120 tablet, 0 Refills, Maintenance, 04/09/15 12:52:09, EC Tablet Start Date: 04/09/15 Status: Ordered Problem List Condition Effective Dates Status Health Status Informant Abnormal uterine bleeding(Confirmed) Active Anxiety depression(Confirmed) Active GERD (gastroesophageal reflux Active disease)(Confirmed) Nabothian cyst(Confirmed) Active Social History Social History Type Response Smoking Status Current every day smoker; Ty pe: Cigarettes; Interested in cessation: Yes; Tobacco use times per day: 10+; Started at age: 17; entered on: 12/12/14 Sex
--- OUTSIDE RECORDS SUMMARY | 2022-08-05 01:04 | XMS_ITS | Continuity of Care Document ---
:1970 Author Organization [facility] Address [address] [place] [address]- Care Team Providers Name Role Phone Shawnee Delgado MD Primary Care Physician Encounter [facility] [place] Date(s): 07/15/20 - 10/13/[address] [id number] Attending Physician: Shawnee Delgado MD Admitting Physician: Shawnee Delgado MD Referring Physician: Shawnee Delgado MD Allergies, Adverse Reactions, Alerts Substance Reaction Severity Status NKA Active Immunizations Given and Recorded Vaccine Date Status Refusal Reason influenza virus vaccine, inactivated1 10/29/10 Given tetanus/diphtheria/pertussis, acel(Tdap)2 10/29/10 Given 1Admin Note: MANUFACTURE BIOMEDICAL INFO SHEET GIVEN GIVEN W/O [id number] Note: GIVEN W/O INCIDENT INFO SHEET GIVEN [...] Maintenance, 11/07/17 14:41:43, Route to Pharmacy Electronically, NCPDP_ID-[id number], [facility] - [address] Start Date: [...]
--- OUTSIDE RECORDS SUMMARY | 2022-08-05 01:04 | XMS_ITS | Continuity of Care Document ---
:1970 Author Organization [facility] Address [address] [place] [phone]- Care Team Providers Name Role Phone Shawnee Delgado MD Primary Care Physician Encounter [facility] [place] Date(s): 02/25/20 - 04/17/[address] [address] Attending Physician: Shade Coughlin MD Admitting Physician: Shade Coughlin MD Referring Physician: Shade Coughlin MD Allergies, Adverse Reactions, Alerts Substance Reaction Severity Status NKA Active Immunizations Given and Recorded Vaccine Date Status Refusal Reason influenza virus vaccine, inactivated1 10/29/10 Given tetanus/diphtheria/pertussis, acel(Tdap)2 10/29/10 Given 1Admin Note: MANUFACTURE BIOMEDICAL INFO SHEET GIVEN GIVEN W/O [id number] Note: GIVEN W/O INCIDENT INFO SHEET GIVEN [...] Maintenance, 11/07/17 14:41:43, Route to Pharmacy Electronically, NCPDP_ID-[id number], [facility] - [address] Start [...]
--- OUTSIDE RECORDS SUMMARY | 2022-08-05 01:04 | XMS_ITS | Continuity of Care Document ---
:1970 Author Organization [facility] Address [address] [place] [address]- Care Team Providers Name Role Phone Shawnee Delgado MD Primary Care Physician [place] [facility] [place] Date(s): 12/16/20 - 03/24/[address] [address] Attending Physician: Shawnee Delgado MD Admitting Physician: Shawnee Delgado MD Referring Physician: Shawnee Delgado MD Allergies, Adverse Reactions, Alerts Substance Reaction Severity Status NKA Active Immunizations Given and Recorded Vaccine Date Status Refusal Reason influenza virus vaccine, inactivated1 10/29/10 Given tetanus/diphtheria/pertussis, acel(Tdap)2 10/29/10 Given 1Admin Note: MANUFACTURE BIOMEDICAL INFO SHEET GIVEN GIVEN W/O [id number] Note: GIVEN W/O INCIDENT INFO SHEET GIVEN [...] Maintenance, 11/07/17 14:41:43, Route to Pharmacy Electronically, NCPDP_ID-[id number], [facility] - [address] Start [...]
--- OUTSIDE RECORDS SUMMARY | 2022-08-05 01:04 | XMS_ITS | Continuity of Care Document ---
:1970 Author Organization [facility] Address [address] [place] [phone]- Care Team Providers Name Role Phone Shawnee Delgado MD Primary Care Physician Encounter [facility] [place] Date(s): 12/04/19 - 02/25/[address] [address]- [facility] Attending Physician: Shade Coughlin MD Admitting Physician: Shade Coughlin MD Referring Physician: Shade Coughlin MD Allergies, Adverse Reactions, Alerts Substance Reaction Severity Status NKA Active Immunizations Given and Recorded Vaccine Date Status Refusal Reason influenza virus vaccine, inactivated1 10/29/10 Given tetanus/diphtheria/pertussis, acel(Tdap)2 10/29/10 Given 1Admin Note: MANUFACTURE BIOMEDICAL INFO SHEET GIVEN GIVEN W/O [id number] Note: GIVEN W/O INCIDENT INFO SHEET GIVEN [...] Maintenance, 11/07/17 14:41:43, Route to Pharmacy Electronically, NCPDP_ID-[id number], [facility] - [address] Start [...]
--- OUTSIDE RECORDS SUMMARY | 2022-08-05 01:04 | XMS_ITS | Continuity of Care Document ---
:1970 Author Organization [facility] Address [address] [place] [address]- Care Team Providers Name Role Phone Shawnee Delgado MD Primary Care Physician Encounter [facility] [place] Date(s): 08/27/21 - 10/13/[address] [address] Attending Physician: Shawnee Delgado MD Admitting Physician: Shawnee Delgado MD Referring Physician: Shawnee Delgado MD Allergies, Adverse Reactions, Alerts No Known Allergies Immunizations Given and Recorded Vaccine Date Status Refusal Reason influenza virus vaccine, inactivated1 10/29/10 Given tetanus/diphtheria/pertussis, acel(Tdap)2 10/29/10 Given 1Admin Note: MANUFACTURE BIOMEDICAL INFO SHEET GIVEN GIVEN W/O [id number] Note: GIVEN W/O INCIDENT INFO SHEET GIVEN [...] Maintenance, 11/07/17 14:41:43, Route to Pharmacy Electronically, NCPDP_ID-[id number], [facility] - [address] Start [...]
--- OUTSIDE RECORDS SUMMARY | 2022-08-05 01:04 | XMS_ITS | Continuity of Care Document ---
:1970 Author Organization [facility] Address [address] [place] [address]- Care Team Providers Name Role Phone Danny LOCO, Shawnee Vasquez Primary Care Physician Encounter [facility] [place] Date(s): 11/21/19 - 12/01/19 [facility] [address] [place] [address] [facility] Attending Physician: Admkaroline, Faustino8 Admitting Physician: [id number] Referring Physician: Admtr, Ar8 Allergies, Adverse Reactions, Alerts Substance Reaction Severity Status NKA Active Immunizations Given and Recorded Vaccine Date Status Refusal Reason influenza virus vaccine, inactivated1 10/29/10 Given tetanus/diphtheria/pertussis, acel(Tdap)2 10/29/10 Given 1Admin Note: MANUFACTURE BIOMEDICAL INFO SHEET GIVEN GIVEN W/O [id number] Note: GIVEN W/O INCIDENT INFO SHEET GIVEN [...] Maintenance, 11/07/17 14:41:43, Route to Pharmacy Electronically, NCPDP_ID-[id number], [facility] - [address] Start [...]
--- OUTSIDE RECORDS SUMMARY | 2022-08-05 01:04 | XMS_ITS | Continuity of Care Document ---
:1970 Author Organization [facility] Address [address] [place] [address]- Care Team Providers Name Role Phone Shawnee Delgado MD Primary Care Physician En[place] [facility] [place] 10/20/20 - 12/02/[address] [address] Attending Physician: Shawnee Delgado MD Admitting Physician: Shawnee Delgado MD Referring Physician: Shawnee Delgado MD Allergies, Adverse Reactions, Alerts Substance Reaction Severity Status NKA Active Immunizations Given and Recorded Vaccine Date Status Refusal Reason influenza virus vaccine, inactivated1 10/29/10 Given tetanus/diphtheria/pertussis, acel(Tdap)2 10/29/10 Given 1Admin Note: MANUFACTURE BIOMEDICAL INFO SHEET GIVEN GIVEN W/O [id number] Note: GIVEN W/O INCIDENT INFO SHEET GIVEN [...] Maintenance, 11/07/17 14:41:43, Route to Pharmacy Electronically, NCPDP_ID-[id number], [facility] - [id number]... Start [...]
--- OUTSIDE RECORDS SUMMARY | 2022-08-05 01:04 | XMS_ITS | Continuity of Care Document ---
:1970 Author Organization [facility] Address [address] [place] [address]- Care Team Providers Name Role Phone Danny LOCO, Shawnee Vasquez Primary Care Physician Encounter [facility] [place] Date(s): 03/19/20 - 04/18/20 [facility] [address] [place] [address]- [facility] Allergies, Adverse Reactions, Alerts Substance Reaction Severity Status NKA Active Immunizations Given and Recorded Vaccine Date Status Refusal Reason influenza virus vaccine, inactivated1 10/29/10 Given tetanus/diphtheria/pertussis, acel(Tdap)2 10/29/10 Given 1Admin Note: MANUFACTURE BIOMEDICAL INFO SHEET GIVEN GIVEN W/O [id number] Note: GIVEN W/O INCIDENT INFO SHEET GIVEN [...] Maintenance, 11/07/17 14:41:43, Route to Pharmacy Electronically, NCPDP_ID-[id number], [facility] - [address] Start [...]
--- OUTSIDE RECORDS SUMMARY | 2022-08-05 01:04 | XMS_ITS | Continuity of Care Document ---
:1970 Author Organization [facility] Address [address] [place] [address]- Care Team Providers Name Role Phone Shawnee Delgado MD Primary Care Physician [place] [facility] [place] - 03/01/[address] [address] Attending Physician: Shawnee Delgado MD Admitting Physician: Shawnee Delgado MD Referring Physician: Shawnee Delgado MD Allergies, Adverse Reactions, Alerts No Known Allergies Immunizations Given and Recorded Vaccine Date Status Refusal Reason influenza virus vaccine, inactivated1 10/29/10 Given tetanus/diphtheria/pertussis, acel(Tdap)2 10/29/10 Given 1Admin Note: MANUFACTURE BIOMEDICAL INFO SHEET GIVEN GIVEN W/O [id number] Note: GIVEN W/O INCIDENT INFO SHEET GIVEN [...] Maintenance, 11/07/17 14:41:43, Route to Pharmacy Electronically, NCPDP_ID-[id number], [facility] - [address] Start [...]
--- OUTSIDE RECORDS SUMMARY | 2022-08-05 01:04 | XMS_ITS | Continuity of Care Document ---
:1970 Author Organization [facility] Address [address] [place] [address]- Care Team Providers Name Role Phone Shawnee Delgado MD Primary Care Physician [place] [facility] [place]07/21 - 10/13/[address] [address] Attending Physician: Shawnee Delgado MD Admitting Physician: Shawnee Delgado MD Referring Physician: Shawnee Delgado MD Allergies, Adverse Reactions, Alerts No Known Allergies Immunizations Given and Recorded Vaccine Date Status Refusal Reason influenza virus vaccine, inactivated1 10/29/10 Given tetanus/diphtheria/pertussis, acel(Tdap)2 10/29/10 Given 1Admin Note: MANUFACTURE BIOMEDICAL INFO SHEET GIVEN GIVEN W/O [id number] Note: GIVEN W/O INCIDENT INFO SHEET GIVEN [...] Maintenance, 11/07/17 14:41:43, Route to Pharmacy Electronically, NCPDP_ID-[id number], [facility] - [address]... Start [...]
--- OUTSIDE RECORDS SUMMARY | 2022-08-05 01:04 | XMS_ITS ---
:1970 Author Organization [facility] Address [address] [place] [address] Care Team Providers Name Role Phone Rajan Choudhury Jr Unavailable Unavailable PROBLEMS Unknown Problems ALLERGIES No Known Allergies ENCOUNTERS Encounter Location Date Diagnosis [facility] [address], [facility] [address] [place] [address] [facility] [address], [place] [facility] [address] [place] Z12.11 [address] [facility] [address], [facility] [address] [place] [address] [facility] [address] [facility] [address] [place] [address] [facility] [address] [facility] [address] [place] [address] [facility] [address], [place] [facility] [address] [place] Z12.11 [address] [facility] [address], [facility] [address] [place] [address] IMMUNIZATIONS No Known Immunizations SOCIAL HISTORY Qualifiers Date Current Smoker REASON FOR REFERRAL FUNCTIONAL STATUS PLAN OF CARE Activity Details Follow Up prn Reason: Future/Pending Procedure COLONOSCOPY 20211209 VITAL SIGNS Weight 151 lbs 2021-12-09 Height 66 in 2021-12-09 BMI 24.37 kg/m2 2021-12-09 Temperature 98.7 degrees Fahrenheit 2021-12-09 Blood pressure systolic 000 mm Hg 2021-12-09 Blood pressure diastolic 00 mm Hg 2021-12-09 MEDICATIONS Medication Instructions Dosage Frequency Start End Date Duration Stat us Date Sertraline HCl 90 Active 50 MG Dulcolax Orally two take at 3:00 14 Apr, 1 day Active (colon prep) 5 tablets twice a p.m and 2022 MG day for one day 7:00p.m. MiraLax (colon Orally begin at mixed with 13 Apr, 1 day Active prep) 17 5:00 p.m. the Gatorade or 2021 GM/SCOOP day before the Crystal procedure Light MiraLax (colon Orally begin at mixed with 14 Apr, 1 day Active prep) 17 5:00 p.m. the Gatorade or 2021 GM/SCOOP day before the Crystal procedure Light PROCEDURES Procedure Date Ordered Result Body Site [facility] [place] December 09, 2021 RESULTS No Results REASON FOR VISIT screening colonoscopy, pt cancel procedure, colonoscopy, screening, screening, colonoscopy, please lock 12-09-2021 office note, bowel prep, Patient presents today for a colon screening, New Pt no show, Patient presents today for a COLON SCREENING Insurance Providers [facility] Health Member Patient Patient Patient Patient Patient Subscriber Subscriber Subscriber Group Insurance Plan Plan Plan Plan ID Relationship Address Phone Name Date of ID Name Date of No Type Insurance Insurance Insurance Coverage to Subscriber Address Phone Name Dates Haley [phone] Haley self COURTNEY [id number] 21 [id number] [facility] [address] [place] [address] Plan [id number]
[2022-08-05 01:10] LABS: Troponin-I High Sensitivity < 3.5 ng/L (<3.5-17.0)
[2022-08-05 01:12] LABS: Amphetamine Screen Urine Not Detected (Not Detect); Barbiturates, Urine Not Detected (Not Detect); Benzodiazepines Screen Urine Not Detected (Not Detect); Cannabinoid Screen Urine Not Detected (Not Detect); Cocaine Screen Urine Not Detected (Not Detect); Fentanyl, urine Not Detected (Not Detect); Opiate Screen Urine Not Detected (Not Detect); Phencyclidine Screen Urine Not Detected (Not Detect)
[2022-08-05 01:18] LABS: Alanine Aminotransferase 25 U/L (0-31); Albumin Level 4.3 g/dL (3.5-5.0); Alkaline Phosphatase 61 U/L (39-117); Anion Gap 14 (12-20); Aspartate Amino Transferase 33 U/L (5-31); Blood Urea Nitrogen 7 mg/dL (9-16); Calcium 9.1 mg/dL (8.4-10.2); Carbon Dioxide 24 mmol/L (22-29); Chloride 101 mmol/L (96-108); Creatinine Clr Calc Pharmacy 93.5; Estimated Glomerular Filt Rate > 60; Ethanol 227 mg/dL; Glucose Random 75 mg/dL (60-115); Magnesium 2.1 mg/dL (1.6-2.6); Potassium 3.7 mmol/L (3.3-5.1); Sodium 135 mmol/L (135-145); Total Protein 7.2 g/dL (6.5-8.0)
[2022-08-05 01:24] VITALS: BP 107/63; PULSE 77; RESP 16; TEMP 36.6; O2SAT 100
[2022-08-05 01:37] LABS: Bilirubin Total 0.2 mg/dL (0.0-1.0)
== END 2022-08-05 02:11 | disposition home or self-care (01) ==
PROVIDERS: Physician Assistant; Emergency Provider Internal Medicine; PCP Internal Medicine
DX: M79.641 Pain in right hand (principal); R07.89 Other chest pain; F10.129 Alcohol abuse with intoxication, unspecified; Y90.9 Presence of alcohol in blood, level not specified; Z79.899 Other long term (current) drug therapy
CPT/HCPCS: 36415; 71045; 73130; 80053; 80307; 82077; 83735; 84484; 85025; 93005; 99284

== ENCOUNTER 2022-09-08 18:32 | Emergency (ER) | payer OTHER, SELFPAY ==
--- NOTE | ~2022-09-08 | XR_ITS ---
EXAMINATION: XR CHEST CLINICAL INFORMATION: Chest pain COMPARISON: 08/05/2022 TECHNIQUE: 2 views of the chest were obtained. FINDINGS: No significant abnormality is noted involving the heart, lungs, mediastinum, bony thorax or soft tissues. XR/XR chest 2V IMPRESSION: Unremarkable examination.
--- NOTE | 2022-09-08 18:34 | ECG_ITS ---
Test Reason : CHEST PAIN Blood Pressure : / mmHG Vent. Rate : 071 BPM Atrial Rate : 071 BPM P-R Int : 160 ms QRS Dur : 082 ms QT Int : 398 ms P-R-T Axes : 061 025 027 degrees QTc Int : 432 ms Normal sinus rhythm Normal ECG When compared with ECG of 05-AUG-2022 01:11, No significant change was found Referred By: Erinn Hart Electronically Signed By:Yusuf Louis
[2022-09-08 18:35] VITALS: BP 142/89; PULSE 85; RESP 18; TEMP 36.8; O2SAT 99; BMI 24.2
--- NOTE | 2022-09-08 18:35 | ED.CHESTPAIN ---
HPI - Chest Pain General Chief Complaint: Chest Pain <GRACE Manzo - Last Filed: 09/08/22 18:37> Stated Complaint: chest pain left arm pain <GRACE Manzo - Last Filed: 09/08/22 18:37> Time Seen by Provider: 09/08/22 18:43 <GRACE Manzo - Last Filed: 09/08/22 18:37> Source: patient <Benny Farooq MD - Last Filed: 09/08/22 20:10> Mode of arrival: ambulatory <Benny Farooq MD - Last Filed: 09/08/22 20:10> Limitations: no limitations <Benny Farooq MD - Last Filed: 09/08/22 20:10> History of Present Illness HPI narrative: Patient with no significant past medical history complaining of left-sided sharp chest pain since 02:00 patient woke up from sleep the pain does have history of anxiety but patient was not feeling anxious at that time pain is sharp in character comes and goes lasting for few seconds since morning patient also complaining of pain in the left arm patient is smoker no cocaine use no shortness of breath no diaphoresis patient never had similar pain in the past no significant family history <Benny Farooq MD - Last Filed: 09/08/22 20:10> Related Data Home Medications: Home Medications Medication Instructions Recorded Confirmed omeprazole 20 mg capsule,delayed 1 cap PO DAILY 01/12/22 01/19/22 release sertraline 50 mg tablet 1 tab PO DAILY 01/12/22 01/19/22 <GRACE Manzo - Last Filed: 09/08/22 18:37> Allergies/Adverse Reactions: Allergies Allergy/AdvReac Type Severity Reaction Status Date / Time No Known Allergies Allergy Verified 09/08/22 18:37 <GRACE Manzo - Last Filed: 09/08/22 18:37> Review of Systems Review of Systems: Yes all other systems are reviewed and are negative <Benny Farooq MD - Last Filed: 09/08/22 20:10> PMFSH Past Medical History Medical History: Medical History Anxiety Depression ETOH abuse GERD (gastroesophageal reflux disease) Renal calculi <GRACE Manzo - Last Filed: 09/08/22 18:37> Surgical History: Surgical History Hx of straightening of nasal septum <GRACE Manzo - Last Filed: 09/08/22 18:37> Social History Social History: Social History Alcohol intake: current Alcohol intake frequency: 3 or more drinks per day Alcohol type: beer Patient Tobacco Use Status: Current everyday Tobacco user Advance Directives: No Advance Directives Information Provided: Yes Current occupational status: disabled Current occupation: rt knee <GRACE Manzo - Last Filed: 09/08/22 18:37> Physical Exam Vital Signs: Vital Signs: Last Vital Signs Temp 98.3 F 09/08/22 18:35 Pulse 85 09/08/22 18:35 Resp 18 09/08/22 18:35 BP 142/89 H 09/08/22 18:35 Pulse Ox 99 09/08/22 18:35 O2 Del Method 09/08/22 18:35 BMI result Body Mass Index 24.2 <GRACE Manzo - Last Filed: 09/08/22 18:37> Vital Signs: Last Vital Signs Temp 98.3 F 09/08/22 18:35 Pulse 85 09/08/22 18:35 Resp 18 09/08/22 18:35 BP 142/89 H 09/08/22 18:35 Pulse Ox 99 09/08/22 18:35 O2 Del Method 09/08/22 18:35 BMI result Body Mass Index 24.2 <Benny Farooq MD - Last Filed: 09/08/22 20:10> Appearance: Alert. Oriented X3. No acute distress. ENT: Pharynx normal. Oral Mucosa moist Neck: Normal inspection. Neck supple. CVS: Normal heart rate and rhythm. Pulses normal. Left chest wall tenderness no murmur or gallop Respiratory: No respiratory distress. Equal air entry bilateral, no wheezing/rales/rhonchi Abdomen: Soft and nontender. Bowel sounds are present, no mass palpable, no CVA tenderness Skin: Skin warm and dry. Normal skin color. Normal skin turgor. Extremities: No lower extremity edema. No calf tenderness Neuro: Oriented X 3. <Benny Farooq MD - Last Filed: 09/08/22 20:10> Course Course Course Narrative: RME - 51 yo female with history of anxiety, depression, active smoker who presents to the ER for evaluation of intermittent left sided chest pains and heaviness that started 1 hour ago while she was in the shower. Intermittently radiates down the left arm to the fingertips. No SOB, nausea or diaphoresis. VSS in triage. EKG, CXR, Labs ordered. <GRACE Manzo - Last Filed: 09/08/22 18:37> Medical Decision Making Medical Decision Making [facility] Narrative: Patient has atypical chest pain heart score of 1 and troponin negative patient had pain for more than 6 hours normal cardiogram will discharge patient home advised to follow with PCP <Benny Farooq MD - Last Filed: 09/08/22 20:10> Lab Data MDM Lab Attestation statement: I reviewed the patient's lab results. <Benny Farooq MD - Last Filed: 09/08/22 20:10> Result Diagrams: 09/08/22 19:09 09/08/22 19:09 <GRACE Manzo - Last Filed: 09/08/22 18:37> Labs: Lab Results 09/08/22 09/08/22 09/08/22 Range/Units 19:09 19:09 19:09 WBC 7.2 (4.8-10.8) X10*3/uL RBC 4.17 L (4.20-5.50) X10*6/uL Hgb 13.6 (12.0-16.0) g/dl Hct 39.8 (37.0-47.0) % MCV 95.4 (80.0-98.0) fL MCH 32.6 (27.0-33.0) pg MCHC 34.2 (31.0-35.0) g/dl RDW 13.5 (11.0-16.0) % Plt Count 233 (160-400) X10*3/uL MPV 9.9 (9.4-12.3) fL Immature Gran % (Auto) 0.3 (0.0-0.4) % Neut % (Auto) 59.0 (45-73) % Lymph % (Auto) 32.3 (20-40) % Jessamine % (Auto) 6.7 (2-11) % Eos % (Auto) 1.4 (0-4) % Baso % (Auto) 0.3 (0-2) % Lymph # (Auto) 2.3 (1.2-4.9) X10*3/uL Jess[place] # (Auto) 0.5 (0.1-1.2) X10*3/uL Eos # (Auto) 0.1 (0.0-0.4) X10*3/uL Baso # (Auto) 0.0 (0.0-0.2) X10*3/uL Abs Immat Gran (auto) 0.02 (0.00-0.03) X10*3/uL Absolute Neuts (auto) 4.2 (2.0-8.3) x10*3/uL Absolute Nucleated RBC 0.000 (0.0-0.012) X10*3/uL Nucleated RBC % (auto) 0.0 (0.0-0.2) /100WBC PT 11.5 (10.0-13.1) SEC INR 1.0 (0.9-1.1) APTT (26.0-36.4) SEC Sodium 142 (135-145) mmol/L Potassium 3.9 (3.3-5.1) mmol/L Chloride 107 (96-108) mmol/L Carbon Dioxide 26 (22-29) mmol/L Anion Gap 13 (12-20) BUN 11 (9-16) mg/dL Creatinine 0.72 (0.5-1.4) mg/dL Estim Creat Clear Calc 86.5 Estimated GFR > 60 Random Glucose 95 (60-115) mg/dL Calcium 9.5 (8.4-10.2) mg/dL Magnesium 2.0 (1.6-2.6) mg/dL Total Bilirubin 0.4 (0.0-1.0) mg/dL Direct Bilirubin < 0.2 (0.0-0.5) mg/dL AST 22 (5-31) U/L ALT 14 (0-31) U/L Alkaline Phosphatase 68 (39-117) U/L Troponin I High Sens (<3.5-17.0) ng/L Total Protein 6.9 (6.5-8.0) g/dL Albumin 4.2 (3.5-5.0) g/dL COVID-19 ([facility]) (Negative) COVID-19 Clin Com 09/08/22 09/08/22 09/08/22 Range/Units 19:09 19:09 19:12 WBC (4.8-10.8) X10*3/uL RBC (4.20-5.50) X10*6/uL Hgb (12.0-16.0) g/dl Hct (37.0-47.0) % MCV (80.0-98.0) fL MCH (27.0-33.0) pg MCHC (31.0-35.0) g/dl RDW (11.0-16.0) % Plt Count (160-400) X10*3/uL MPV (9.4-12.3) fL Immature Gran % (Auto) (0.0-0.4) % Neut % (Auto) (45-73) % Lymph % (Auto) (20-40) % Jessamine % (Auto) (2-11) % Eos % (Auto) (0-4) % Baso % (Auto) (0-2) % Lymph # (Auto) (1.2-4.9) X10*3/uL Jessamine # (Auto) (0.1-1.2) X10*3/uL Eos # (Auto) (0.0-0.4) X10*3/uL Baso # (Auto) (0.0-0.2) X10*3/uL Abs Immat Gran (auto) (0.00-0.03) X10*3/uL Absolute Neuts (auto) (2.0-8.3) x10*3/uL Absolute Nucleated RBC (0.0-0.012) X10*3/uL Nucleated RBC % (auto) (0.0-0.2) /100WBC PT (10.0-13.1) SEC INR (0.9-1.1) APTT 33.1 (26.0-36.4) SEC Sodium (135-145) mmol/L Potassium (3.3-5.1) mmol/L Chloride (96-108) mmol/L Carbon Dioxide (22-29) mmol/L Anion Gap (12-20) BUN (9-16) mg/dL Creatinine (0.5-1.4) mg/dL Estim Creat Clear Calc Estimated GFR Random Glucose (60-115) mg/dL Calcium (8.4-10.2) mg/dL Magnesium (1.6-2.6) mg/dL Total Bilirubin (0.0-1.0) mg/dL Direct Bilirubin (0.0-0.5) mg/dL AST (5-31) U/L ALT (0-31) U/L Alkaline Phosphatase (39-117) U/L Troponin I High Sens < 3.5 (<3.5-17.0) ng/L Total Protein (6.5-8.0) g/dL Albumin (3.5-5.0) g/dL COVID-19 ([facility]) Negative (Negative) COVID-19 Clin Com See Note <GRACE Manzo - Last Filed: 09/08/22 18:37> Lab Results 09/08/22 09/08/22 09/08/22 Range/Units 19:09 19:09 19:09 WBC 7.2 (4.8-10.8) X10*3/uL RBC 4.17 L (4.20-5.50) X10*6/uL Hgb 13.6 (12.0-16.0) g/dl Hct 39.8 (37.0-47.0) % MCV 95.4 (80.0-98.0) fL MCH 32.6 (27.0-33.0) pg MCHC 34.2 (31.0-35.0) g/dl RDW 13.5 (11.0-16.0) % Plt Count 233 (160-400) X10*3/uL MPV 9.9 (9.4-12.3) fL Immature Gran % (Auto) 0.3 (0.0-0.4) % Neut % (Auto) 59.0 (45-73) % Lymph % (Auto) 32.3 (20-40) % Jessamine % (Auto) 6.7 (2-11) % Eos % (Auto) 1.4 (0-4) % Baso % (Auto) 0.3 (0-2) % Lymph # (Auto) 2.3 (1.2-4.9) X10*3/uL Jess[place] # (Auto) 0.5 (0.1-1.2) X10*3/uL Eos # (Auto) 0.1 (0.0-0.4) X10*3/uL Baso # (Auto) 0.0 (0.0-0.2) X10*3/uL Abs Immat Gran (auto) 0.02 (0.00-0.03) X10*3/uL Absolute Neuts (auto) 4.2 (2.0-8.3) x10*3/uL Absolute Nucleated RBC 0.000 (0.0-0.012) X10*3/uL Nucleated RBC % (auto) 0.0 (0.0-0.2) /100WBC PT 11.5 (10.0-13.1) SEC INR 1.0 (0.9-1.1) APTT (26.0-36.4) SEC Sodium 142 (135-145) mmol/L Potassium 3.9 (3.3-5.1) mmol/L Chloride 107 (96-108) mmol/L Carbon Dioxide 26 (22-29) mmol/L Anion Gap 13 (12-20) BUN 11 (9-16) mg/dL Creatinine 0.72 (0.5-1.4) mg/dL Estim Creat Clear Calc 86.5 Estimated GFR > 60 Random Glucose 95 (60-115) mg/dL Calcium 9.5 (8.4-10.2) mg/dL Magnesium 2.0 (1.6-2.6) mg/dL Total Bilirubin 0.4 (0.0-1.0) mg/dL Direct Bilirubin < 0.2 (0.0-0.5) mg/dL AST 22 (5-31) U/L ALT 14 (0-31) U/L Alkaline Phosphatase 68 (39-117) U/L Troponin I High Sens (<3.5-17.0) ng/L Total Protein 6.9 (6.5-8.0) g/dL Albumin 4.2 (3.5-5.0) g/dL COVID-19 ([facility]) (Negative) COVID-19 Clin Com 09/08/22 09/08/22 09/08/22 Range/Units 19:09 19:09 19:12 WBC (4.8-10.8) X10*3/uL RBC (4.20-5.50) X10*6/uL Hgb (12.0-16.0) g/dl Hct (37.0-47.0) % MCV (80.0-98.0) fL MCH (27.0-33.0) pg MCHC (31.0-35.0) g/dl RDW (11.0-16.0) % Plt Count (160-400) X10*3/uL MPV (9.4-12.3) fL Immature Gran % (Auto) (0.0-0.4) % Neut % (Auto) (45-73) % Lymph % (Auto) (20-40) % Jess[place] % (Auto) (2-11) % Eos % (Auto) (0-4) % Baso % (Auto) (0-2) % Lymph # (Auto) (1.2-4.9) X10*3/uL [place] # (Auto) (0.1-1.2) X10*3/uL Eos # (Auto) (0.0-0.4) X10*3/uL Baso # (Auto) (0.0-0.2) X10*3/uL Abs Immat Gran (auto) (0.00-0.03) X10*3/uL Absolute Neuts (auto) (2.0-8.3) x10*3/uL Absolute Nucleated RBC (0.0-0.012) X10*3/uL Nucleated RBC % (auto) (0.0-0.2) /100WBC PT (10.0-13.1) SEC INR (0.9-1.1) APTT 33.1 (26.0-36.4) SEC Sodium (135-145) mmol/L Potassium (3.3-5.1) mmol/L Chloride (96-108) mmol/L Carbon Dioxide (22-29) mmol/L Anion Gap (12-20) BUN (9-16) mg/dL Creatinine (0.5-1.4) mg/dL Estim Creat Clear Calc Estimated GFR Random Glucose (60-115) mg/dL Calcium (8.4-10.2) mg/dL Magnesium (1.6-2.6) mg/dL Total Bilirubin (0.0-1.0) mg/dL Direct Bilirubin (0.0-0.5) mg/dL AST (5-31) U/L ALT (0-31) U/L Alkaline Phosphatase (39-117) U/L Troponin I High Sens < 3.5 (<3.5-17.0) ng/L Total Protein (6.5-8.0) g/dL Albumin (3.5-5.0) g/dL COVID-19 ([facility]) Negative (Negative) COVID-19 Clin Com See Note <Benny Farooq MD - Last Filed: 09/08/22 20:10> Independent Interpretation I performed an independent interpretation of an: EKG <Benny Farooq MD - Last Filed: 09/08/22 20:10> Interpretation: Although sinus rhythm heart rate 71 beats per minute normal intervals normal axis no acute ST T wave changes no acute ischemia <Benny Farooq MD - Last Filed: 09/08/22 20:10> Scores Heart Score History: -0- slightly suspicious <Benny Farooq MD - Last Filed: 09/08/22 20:10> ECG: -0- normal <Benny Farooq MD - Last Filed: 09/08/22 20:10> Age: -1- >45 - <65 <Benny Farooq MD - Last Filed: 09/08/22 20:10> Risk factory: -0- no risk factors known <Benny Farooq MD - Last Filed: 09/08/22 20:10> Troponin: -0- < or = normal limit <Benny Farooq MD - Last Filed: 09/08/22 20:10> Score: 1 <Benny Farooq MD - Last Filed: 09/08/22 20:10> Risk: 1.7% <Benny Farooq MD - Last Filed: 09/08/22 20:10> Discharge Plan Discharge Clinical Impression: Atypical chest pain <GRACE Manzo - Last Filed: 09/08/22 18:37> Patient Disposition: Home, Self-Care <GRACE Manzo - Last Filed: 09/08/22 18:37> Instructions: Chest Pain (ED) <GRACE Manzo - Last Filed: 09/08/22 18:37> Additional Instructions: Your chest pain is likely musculoskeletal Take Tylenol/ibuprofen for pain Follow with PCP for further evaluation Report to the ER if recurrence of the pain <GRACE Manzo - Last Filed: 09/08/22 18:37> Prescriptions: No Action omeprazole 20 mg capsule,delayed release(DR/EC) 1 cap PO DAILY sertraline 50 mg tablet 1 tab PO DAILY <GRACE Manzo - Last Filed: 09/08/22 18:37>
--- OUTSIDE RECORDS SUMMARY | 2022-09-08 18:49 | XMS_ITS ---
:1970 Author Organization [facility] Address [address] [place] [address] Care Team Providers Name Role Phone Rajan Choudhury Jr Unavailable Unavailable PROBLEMS Unknown Problems ALLERGIES No Known Allergies ENCOUNTERS Encounter Location Date Diagnosis [facility] [address], [facility] [address] [place] [address] [facility] [address], [place] [facility] [address] [place] [address]12.11 [address] [facility] [address], [facility] [address] [place] [address] [facility] [address], [facility] [address] [place] [address] [facility] [address], [facility] [address] [place] [address] [facility] [address] Nov, [place] [facility] [address] [place] Z12.11 [address] [facility] [address], [facility] [address] [place] [address] IMMUNIZATIONS No Known Immunizations SOCIAL HISTORY Qualifiers [...] today for a COLON SCREENING Insurance Providers [facility] Health Member Patient Patient Patient Patient Patient Subscriber Subscriber Subscriber Group Insurance Plan Plan Plan Plan ID Relationship Address Phone Name Date of ID Name Date of No Type Insurance Insurance Insurance Coverage to Subscriber Address Phone Name Dates Haley [phone] Haley self [place] [id number] [facility] [id number] [place] [address] Plan [id number]
[2022-09-08 19:17] LABS: MANUAL DIFF FLAG NO
[2022-09-08 19:18] LABS: Basophils Percent Auto 0.3 % (0-2); Eosinophils Absolute Auto 0.1 X10*3/uL (0.0-0.4); Eosinophils Percent Auto 1.4 % (0-4); Hematocrit 39.8 % (37.0-47.0); Hemoglobin 13.6 g/dl (12.0-16.0); Imm Gran Abs Auto 0.02 X10*3/uL (0.00-0.03); Imm Gran Pct Auto 0.3 % (0.0-0.4); Lymphocytes Absolute Auto 2.3 X10*3/uL (1.2-4.9); Lymphocytes Percent Auto 32.3 % (20-40); Mean Corpuscular HGB Conc 34.2 g/dl (31.0-35.0); Mean Corpuscular Hemoglobin 32.6 pg (27.0-33.0); Mean Corpuscular Volume 95.4 fL (80.0-98.0); Mean Platelet Volume 9.9 fL (9.4-12.3); Monocytes Absolute Auto 0.5 X10*3/uL (0.1-1.2); Monocytes Percent Auto 6.7 % (2-11); Neutrophils Absolute Auto 4.2 x10*3/uL (2.0-8.3); Platelet Count 233 X10*3/uL (160-400); Red Blood Count 4.17 X10*6/uL (4.20-5.50); Red Cell Distribution Width 13.5 % (11.0-16.0); White Blood Count 7.2 X10*3/uL (4.8-10.8)
[2022-09-08 19:23] LABS: Prothrombin Time 11.5 SEC (10.0-13.1)
[2022-09-08 19:26] LABS: Partial Thromboplastin Time 33.1 SEC (26.0-36.4)
[2022-09-08 19:32] LABS: Alanine Aminotransferase 14 U/L (0-31); Albumin Level 4.2 g/dL (3.5-5.0); Alkaline Phosphatase 68 U/L (39-117); Anion Gap 13 (12-20); Aspartate Amino Transferase 22 U/L (5-31); Bilirubin Direct < 0.2 mg/dL (0.0-0.5); Bilirubin Total 0.4 mg/dL (0.0-1.0); Blood Urea Nitrogen 11 mg/dL (9-16); Calcium 9.5 mg/dL (8.4-10.2); Carbon Dioxide 26 mmol/L (22-29); Chloride 107 mmol/L (96-108); Creatinine Clr Calc Pharmacy 86.5; Estimated Glomerular Filt Rate > 60; Glucose Random 95 mg/dL (60-115); Potassium 3.9 mmol/L (3.3-5.1); Sodium 142 mmol/L (135-145); Total Protein 6.9 g/dL (6.5-8.0)
[2022-09-08 19:42] LABS: COVID-19 Test Negative (Negative); IDNOW Serial# 16C4AD1C
[2022-09-08 19:50] LABS: Troponin-I High Sensitivity < 3.5 ng/L (<3.5-17.0)
[2022-09-08 20:00] VITALS: BP 140/79; PULSE 59; RESP 18; TEMP 36.4; O2SAT 100
--- NOTE | 2022-09-08 20:30 | PC.NURSE ---
IV removed. Pt tolerated well. Pt denied Asp at this time. Reports chest pain has resolved. Discharge instructions reviewed with pt. Pt verbalizes understanding.
== END 2022-09-08 20:31 | disposition home or self-care (01) ==
PROVIDERS: Physician Assistant; Emergency Provider Internal Medicine; PCP Internal Medicine
DX: R07.89 Other chest pain (principal); F17.200 Nicotine dependence, unspecified, uncomplicated; Z71.6 Tobacco abuse counseling; Z20.822 Contact with and (suspected) exposure to COVID-19; Z20.828 Contact with and (suspected) exposure to other viral communicable diseases
CPT/HCPCS: 36415; 71046; 80048; 80076; 83735; 84484; 85025; 85610; 85730; 87635; 93005; 99283; 99284

== ENCOUNTER 2023-03-09 09:15 | Outpatient (REF) | payer OTHER, SELFPAY ==
--- NOTE | 2023-03-09 | EMG_ITS ---
Please see scanned EMG / Nerve Conduction Report. MTDD
== END 2023-03-09 09:16 | disposition home or self-care (01) ==
LOC: HO.NEURO 09:15
PROVIDERS: PCP Internal Medicine; Visit Provider Internal Medicine
DX: M47.22 Other spondylosis with radiculopathy, cervical region (principal)
CPT/HCPCS: 95885; 95913

== ENCOUNTER 2023-04-17 05:13 | Emergency (ER) | payer OTHER, SELFPAY ==
[2023-04-17 05:19] VITALS: BMI 24.2
[2023-04-17 05:24] VITALS: BP 119/83; PULSE 102; RESP 16; TEMP 36.8; O2SAT 97
--- NOTE | 2023-04-17 05:42 | ED_ITS ---
HPI - Allergic Reaction General Chief complaint: Allergic Reaction Stated complaint: Rash, hives on face, neck Time Seen by Provider: 04/17/23 05:39 Source: patient Mode of arrival: ambulatory Limitations: no limitations History of Present Illness HPI narrative: Patient with no history of allergic reaction had shrimps about half an hour ago and started having itching all over the body especially the chest and the face no shortness of breath no nausea vomiting patient never had any allergic reaction in the past Related Data Home Medications Medication Instructions Recorded Confirmed omeprazole 20 mg capsule,delayed 1 cap PO DAILY 01/12/22 01/19/22 release sertraline 50 mg tablet 1 tab PO DAILY 01/12/22 01/19/22 Previous Rx's Medication Instructions Recorded diphenhydramine HCl 25 mg capsule 50 mg PO TID PRN itching #30 caps 04/17/23 (Benadryl) prednisone 20 mg tablet 40 mg PO DAILY #10 tabs 04/17/23 Allergies Allergy/AdvReac Type Severity Reaction Status Date / Time No Known Allergies Allergy Verified 04/17/23 05:19 Review of Systems Review of Systems: Yes all other systems are reviewed and are negative PMFSH Past Medical History Medical History Anxiety Depression ETOH abuse GERD (gastroesophageal reflux disease) Renal calculi Surgical History Hx of straightening of nasal septum Social History Social History Alcohol intake: current Alcohol intake frequency: 3 or more drinks per day Alcohol type: beer Patient Tobacco Use Status: Current everyday Tobacco user Smoked in Last 30 Days: Yes Use of substances other than those prescribed or required for medical reasons: No Advance Directives: No Advance Directives Information Provided: Yes Patient : No Current occupational status: disabled Current occupation: rt knee Physical Exam ED Vital Signs: Vital Signs - 24 hr 04/17/23 05:24 Temperature 98.2 F Pulse Rate 102 H Respiratory Rate 16 Blood Pressure 119/83 Pulse Oximetry 97 Oxygen Delivery Method Room Air BMI result Body Mass Index 24.2 Appearance: Alert. Oriented X3. No acute distress. ENT: Pharynx normal. Oral Mucosa moist , uvula normal tongue lips normal Neck: Normal inspection. Neck supple. CVS: Normal heart rate and rhythm. Pulses normal. Respiratory: No respiratory distress. Equal air entry bilateral, no wheezing/rales/rhonchi Abdomen: Soft and nontender. Bowel sounds are present Skin: Skin warm and dry. Hives on the face and the chest Neuro: Oriented X 3. Medications Administered Discontinued Medications Generic Name Dose Route Start Last Admin Trade Name Freq PRN Reason Stop Dose Admin Dexamethasone 10 mg 04/17/23 05:41 04/17/23 05:48 Dexamethasone 2 Mg Tablet PO 04/17/23 05:42 10 mg ONCE ONE Administration Diphenhydramine HCl 50 mg 04/17/23 05:41 04/17/23 05:48 Diphenhydramine Hcl 25 Mg Capsule PO 04/17/23 05:42 50 mg ONCE ONE Administration Medical Decision Making Medical Decision Making [facility] Narrative: Patient with possible allergic reaction to shrimp improved after prednisone and Benadryl discharge patient home on Benadryl and prednisone advised to follow with PCP Discharge Plan Discharge Clinical Impression: Allergic reaction Patient Disposition: Home, Self-Care Instructions: General Allergic Reaction (ED) Additional Instructions: Likely have allergic reaction to shrimps Do not eat she shrimps in future Medicine for allergy as prescribed Follow-up with PCP for allergy testing Prescriptions: New prednisone 20 mg tablet 40 mg PO DAILY Qty: 10 0RF diphenhydramine HCl [Benadryl] 25 mg capsule 50 mg PO TID PRN (Reason: itching) Qty: 30 0RF No Action omeprazole 20 mg capsule,delayed release(DR/EC) 1 cap PO DAILY sertraline 50 mg tablet 1 tab PO DAILY Interventions: ED Discharge Assessment Last Done: 04/17/23 06:49 Discharge Date/Time: 04/17/23 06:50
[2023-04-17] MEDS: diphenhydrAMINE HCL 25 MG CAPSULE 50 MG PO (05:48)
[2023-04-17] MEDS: dexAMETHasone 2 MG TABLET 10 MG PO (05:48)
== END 2023-04-17 06:50 | disposition home or self-care (01) ==
PROVIDERS: Emergency Provider Internal Medicine; PCP Internal Medicine
DX: R21 Rash and other nonspecific skin eruption (principal); L50.0 Allergic urticaria; F17.200 Nicotine dependence, unspecified, uncomplicated; Z71.6 Tobacco abuse counseling; Z79.899 Other long term (current) drug therapy
CPT/HCPCS: 99283; 99284; J8540

== ENCOUNTER 2023-04-20 05:02 | Emergency (ER) | payer OTHER, SELFPAY ==
[2023-04-20 05:18] VITALS: BP 128/88; BP 168/94; PULSE 80; PULSE 86; RESP 19; TEMP 36.6; O2SAT 100; O2SAT 96; BMI 25.7
[2023-04-20] MEDS: LORazepam 1 MG TABLET PO (06:06)
--- NOTE | 2023-04-20 06:30 | PC.NURSE ---
Pt A&Ox4, tearful, states depression, I've been crying all day, I miss my parents so much, they were the only thing I had . Pt reports running out of anxiety med. Pt denied SI multiple times when asked, d/t hx of attempt to drive [place], a few months ago , then reported angry and having thoughts when home , provider Oseas at bedside. Pt instructed to private branch exchange installer to hospital attire, agreeable but then changed mind, Pt reassured and agreeable once again to staying. Belongings in locker #3 1:1 sitter at bedside. Pt requesting food. 0655: Pt walked independently with steady gait to POD. Breakfast tray provided.
--- NOTE | 2023-04-20 06:45 | ED.PSYCH ---
HPI - Psych General Chief Complaint: Anxiety Stated Complaint: anxiety Time Seen by Provider: 04/20/23 05:42 Source: patient Mode of arrival: ambulatory Limitations: no limitations History of Present Illness HPI Narrative: Patient history of anxiety depression been more depressed lately she lost her both parents last year and her mother anniversary is tomorrow patient felt suicidal tearful while coming to the ER patient felt like eating her car to the tree but stopped before that and called EMS did not feel safe to drive ran out of her anxiety medication unable to sleep tearful Related Data Home Medications Medication Instructions Recorded Confirmed omeprazole 20 mg capsule,delayed 1 cap PO DAILY 01/12/22 04/20/23 release sertraline 50 mg tablet 1 tab PO DAILY 01/12/22 04/20/23 fluticasone propionate 50 1 spray intranasal DAILY 04/20/23 04/20/23 mcg/actuation nasal spray,suspension lorazepam 1 mg tablet 1 mg PO BEDTIME 04/20/23 04/20/23 Allergies Allergy/AdvReac Type Severity Reaction Status Date / Time No Known Allergies Allergy Verified 04/17/23 05:19 Review of Systems Review of Systems: Yes all other systems are reviewed and are negative [facility] Past Medical History Medical History Anxiety Depression ETOH abuse GERD (gastroesophageal reflux disease) Renal calculi Surgical History Hx of straightening of nasal septum Social History Social History Alcohol intake: current Alcohol intake frequency: a few times a week Alcohol type: beer Patient Tobacco Use Status: Current everyday Tobacco user Smoked in Last 30 Days: Yes Use of substances other than those prescribed or required for medical reasons: No Advance Directives: No Advance Directives Information Provided: Yes Patient : No Current occupational status: disabled Current occupation: rt knee Physical Exam Vital Signs: Vital Signs: Last Vital Signs Temp 98 F 04/20/23 05:18 Pulse 80 04/20/23 05:18 Resp 19 04/20/23 05:18 BP 128/88 04/20/23 05:18 Pulse Ox 100 04/20/23 05:18 O2 Del Method Room Air 04/20/23 05:18 BMI result Body Mass Index 25.7 Appearance: Alert. Oriented X3. No acute distress. Eyes: PERRLA, No Nystagmus ENT: Pharynx normal. Oral Mucosa moist Neck: Normal inspection. Neck supple. CVS: Normal heart rate and rhythm. Pulses normal. Respiratory: No respiratory distress. Equal air entry bilateral, no wheezing/rales/rhonchi Abdomen: Soft and nontender. Bowel sounds are present, no mass palpable, no CVA tenderness Skin: Skin warm and dry. Normal skin color. Normal skin turgor. Extremities: No lower extremity edema. No calf tenderness psych; depressed and tearful no hallucination or delusion no SI at this time Neuro: Oriented X 3. No motor deficit. No sensory deficit.No cerebellar signs , cranial nerves II-XII intact Medications Administered Discontinued Medications Generic Name Dose Route Start Last Admin Trade Name Freq PRN Reason Stop Dose Admin Lorazepam 1 mg 04/20/23 05:57 04/20/23 06:06 Lorazepam 1 Mg Tablet PO 04/20/23 05:58 1 mg ONCE ONE Administration Medical Decision Making Medical Decision Making [facility] Narrative: Patient with major depression with SI ideation does not feel safe to go home will get care team consultation for possible inpatient admission Discharge Plan Discharge Clinical Impression: Depression with suicidal ideation, Anxiety Patient Disposition: Still a Patient Prescriptions: No Action omeprazole 20 mg capsule,delayed release(DR/EC) 1 cap PO DAILY sertraline 50 mg tablet 1 tab PO DAILY lorazepam 1 mg tablet 1 mg PO BEDTIME fluticasone propionate 50 mcg/actuation spray,suspension 1 spray intranasal DAILY
--- NOTE | 2023-04-20 07:19 | PC.NURSE ---
Pt to [facility] for anxiety, initially seen in main pod - per report patient seemed to be doing well but prior to d/c endorses SI. Pt currently pending care team eval, labs, belongings searched and secured. Pt currently appears to be in NAD, laying in bed quietly watching television. Primarily Macedonian speaking but speaks fluent conversational Azeri. [address] WCTA
[2023-04-20 07:42] LABS: MANUAL DIFF FLAG NO
[2023-04-20 07:44] LABS: Basophils Absolute Auto 0.1 X10*3/uL (0.0-0.2); Basophils Percent Auto 0.5 % (0-2); Eosinophils Absolute Auto 0.1 X10*3/uL (0.0-0.4); Eosinophils Percent Auto 1.1 % (0-4); Hematocrit 43.8 % (37.0-47.0); Hemoglobin 15.3 g/dl (12.0-16.0); Imm Gran Abs Auto 0.04 X10*3/uL (0.00-0.03); Imm Gran Pct Auto 0.4 % (0.0-0.4); Lymphocytes Percent Auto 45.3 % (20-40); Mean Corpuscular HGB Conc 34.9 g/dl (31.0-35.0); Mean Corpuscular Hemoglobin 32.7 pg (27.0-33.0); Mean Corpuscular Volume 93.6 fL (80.0-98.0); Mean Platelet Volume 9.6 fL (9.4-12.3); Monocytes Absolute Auto 0.6 X10*3/uL (0.1-1.2); Monocytes Percent Auto 5.5 % (2-11); Neutrophils Absolute Auto 5.2 x10*3/uL (2.0-8.3); Neutrophils Percent Auto 47.2 % (45-73); Platelet Count 287 X10*3/uL (160-400); Red Blood Count 4.68 X10*6/uL (4.20-5.50); Red Cell Distribution Width 13.2 % (11.0-16.0); White Blood Count 10.9 X10*3/uL (4.8-10.8)
[2023-04-20 07:55] LABS: Ethanol 209 mg/dL
[2023-04-20 07:56] LABS: Appearance Urine Clear; Color Urine Yellow; Glucose Urine UA Negative (Negative); Leukocyte Esterase Urine Negative (Negative); Nitrite Urine Negative (Negative); Specific Gravity - Urine <= 1.005 (1.005-1.025); Urine Blood Negative (Negative); Urine Ketones Negative (Negative); Urine Protein Negative (Neg-Trace)
[2023-04-20 07:58] LABS: Alanine Aminotransferase 47 U/L (0-31); Albumin Level 4.3 g/dL (3.5-5.0); Alkaline Phosphatase 70 U/L (39-117); Anion Gap 15 (12-20); Aspartate Amino Transferase 51 U/L (5-31); Bilirubin Total 0.3 mg/dL (0.0-1.0); Blood Urea Nitrogen 5 mg/dL (9-16); Calcium 9.6 mg/dL (8.4-10.2); Carbon Dioxide 23 mmol/L (22-29); Chloride 103 mmol/L (96-108); Creatinine Clr Calc Pharmacy 95.6; Estimated Glomerular Filt Rate > 60; Glucose Random 79 mg/dL (60-115); Potassium 3.2 mmol/L (3.3-5.1); Sodium 138 mmol/L (135-145); Total Protein 7.4 g/dL (6.5-8.0)
[2023-04-20 08:04] LABS: Amphetamine Screen Urine Not Detected (Not Detect); Barbiturates, Urine Not Detected (Not Detect); Benzodiazepines Screen Urine Not Detected (Not Detect); Cannabinoid Screen Urine Not Detected (Not Detect); Cocaine Screen Urine Not Detected (Not Detect); Fentanyl, urine Not Detected (Not Detect); Opiate Screen Urine Not Detected (Not Detect); Phencyclidine Screen Urine Not Detected (Not Detect)
[2023-04-20 13:53] VITALS: BP 105/70; PULSE 92; RESP 16; TEMP 36.5; O2SAT 98
== END 2023-04-20 14:04 | disposition home or self-care (01) ==
PROVIDERS: Emergency Provider Internal Medicine; PCP Internal Medicine
DX: F33.1 Major depressive disorder, recurrent, moderate (principal); R45.851 Suicidal ideations; F41.1 Generalized anxiety disorder; F43.0 Acute stress reaction; Z79.899 Other long term (current) drug therapy
CPT/HCPCS: 36415; 80053; 80307; 81003; 85025; 99284; S9485

== ENCOUNTER 2023-10-06 17:06 | Outpatient (REF) | payer OTHER, SELFPAY ==
[2023-10-06 17:16] LABS: MANUAL DIFF FLAG NO
[2023-10-06 17:52] LABS: Basophils Percent Auto 0.5 % (0-2); Eosinophils Absolute Auto 0.1 X10*3/uL (0.0-0.4); Eosinophils Percent Auto 1.1 % (0-4); Hematocrit 42.4 % (37.0-47.0); Hemoglobin 14.2 g/dl (12.0-16.0); Imm Gran Abs Auto 0.02 X10*3/uL (0.00-0.03); Imm Gran Pct Auto 0.4 % (0.0-0.4); Lymphocytes Absolute Auto 1.9 X10*3/uL (1.2-4.9); Mean Corpuscular HGB Conc 33.5 g/dl (31.0-35.0); Mean Corpuscular Volume 95.5 fL (80.0-98.0); Mean Platelet Volume 10.1 fL (9.4-12.3); Monocytes Absolute Auto 0.5 X10*3/uL (0.1-1.2); Monocytes Percent Auto 8.8 % (2-11); Neutrophils Absolute Auto 3.2 x10*3/uL (2.0-8.3); Neutrophils Percent Auto 55.2 % (45-73); Platelet Count 253 X10*3/uL (160-400); Red Blood Count 4.44 X10*6/uL (4.20-5.50); Red Cell Distribution Width 13.4 % (11.0-16.0); White Blood Count 5.7 X10*3/uL (4.8-10.8)
[2023-10-06 18:13] LABS: Alanine Aminotransferase 26 U/L (0-31); Albumin Level 4.2 g/dL (3.5-5.0); Alkaline Phosphatase 70 U/L (39-117); Anion Gap 13 (12-20); Aspartate Amino Transferase 40 U/L (5-31); Bilirubin Total 0.5 mg/dL (0.0-1.0); Blood Urea Nitrogen 10 mg/dL (9-16); Calcium 9.4 mg/dL (8.4-10.2); Carbon Dioxide 27 mmol/L (22-29); Chloride 102 mmol/L (96-108); Estimated Glomerular Filt Rate > 60; Glucose Random 91 mg/dL (60-115); Potassium 3.8 mmol/L (3.3-5.1); Sodium 138 mmol/L (135-145); Total Protein 7.3 g/dL (6.5-8.0)
== END 2023-10-06 17:07 | disposition home or self-care (01) ==
LOC: HO.LAB 17:06
PROVIDERS: PCP Internal Medicine; Visit Provider Internal Medicine
DX: Z00.00 Encounter for general adult medical examination without abnormal findings (principal); F32.9 Major depressive disorder, single episode, unspecified; L71.9 Rosacea, unspecified; R53.83 Other fatigue; Z72.0 Tobacco use
CPT/HCPCS: 36415; 80053; 85025

== ENCOUNTER 2024-03-15 01:43 | Emergency (ER) | payer OTHER, SELFPAY ==
--- NOTE | ~2024-03-15 | XR_ITS ---
EXAMINATION: XR CHEST CLINICAL INFORMATION: Chest tightness. COMPARISON: 09/08/2022 TECHNIQUE: Frontal view of the chest was obtained. FINDINGS: No significant abnormality is noted involving the heart, lungs, mediastinum, bony thorax or soft tissues. XR/XR chest 1V IMPRESSION: Unremarkable examination.
[2024-03-15 01:45] VITALS: BP 152/84; PULSE 86; RESP 20; TEMP 36.7; O2SAT 100; BMI 25.9
--- NOTE | 2024-03-15 03:56 | PC.NURSE ---
pt leaving due to wait times; encouraged patient to stay. states she is feeling better. will return if symptoms worsen. she states she will call her MD in the morning.
== END 2024-03-15 04:15 | disposition left against medical advice (07) ==
PROVIDERS: Emergency Provider Emergency Medicine; PCP Internal Medicine
DX: R07.89 Other chest pain (principal); Z53.21 Procedure and treatment not carried out due to patient leaving prior to being seen by health care provider
CPT/HCPCS: 71045; 99281

== ENCOUNTER 2024-03-15 23:33 | Emergency (ER) | payer OTHER, SELFPAY ==
[2024-03-15 23:41] VITALS: BP 144/91; PULSE 76; RESP 16; TEMP 36.5; O2SAT 100; BMI 25.5
--- NOTE | 2024-03-16 03:07 | ED.SOB ---
HPI - SOB/Dyspnea General Chief Complaint: Upper Respiratory Symptoms Stated Complaint: diff breathing, was here recently Time Seen by Provider: 03/16/24 03:06 Source: patient Mode of arrival: ambulatory Limitations: no limitations History of Present Illness ED Provider: kevyn BULLARD Narrative: Patient's history of anxiety complaining of shortness a breath for last 3 days feels as though she is not getting enough air denies any significant anxiety or depression at this time no cough no fever no chills no caffeine no history of PE Related Data Home Medications ?Medication ?Instructions ?Recorded ?Confirmed omeprazole 20 mg capsule,delayed 1 cap PO DAILY 01/12/22 04/20/23 release sertraline 50 mg tablet 1 tab PO DAILY 01/12/22 04/20/23 fluticasone propionate 50 1 spray intranasal DAILY 04/20/23 04/20/23 mcg/actuation nasal spray,suspension lorazepam 1 mg tablet 1 mg PO BEDTIME 04/20/23 04/20/23 Allergies Allergy/AdvReac Type Severity Reaction Status Date / Time No Known Allergies Allergy Verified 03/15/24 23:41 Review of Systems Review of Systems: Yes all other systems are reviewed and are negative [facility] Past Medical History Medical History Renal calculi GERD (gastroesophageal reflux disease) Anxiety Depression ETOH abuse Surgical History Hx of straightening of nasal septum Social History Social History Alcohol intake: current Alcohol intake frequency: a few times a week Alcohol type: beer Patient Tobacco Use Status: Current everyday Tobacco user Advance Directives: No Advance Directives Information Provided: Yes Do you have a plan to hurt others: No Plan Current occupational status: disabled Current occupation: rt knee Physical Exam Vital Signs: Vital Signs: Last Vital Signs Temp 98.3 F 03/16/24 04:00 Pulse 79 03/16/24 04:00 Resp 17 03/16/24 04:00 BP 137/81 03/16/24 04:00 Pulse Ox 99 03/16/24 04:00 O2 Del Method Room Air 03/16/24 04:00 BMI result Body Mass Index 25.5 Appearance: Alert. Oriented X3. No acute distress. Eyes: PERRLA, No Nystagmus ENT: Pharynx normal. Oral Mucosa moist Neck: Normal inspection. Neck supple. CVS: Normal heart rate and rhythm. Pulses normal. Respiratory: No respiratory distress. Equal air entry bilateral, no wheezing/rales/rhonchi Abdomen: Soft and nontender. Bowel sounds are present, no mass palpable, no CVA tenderness Skin: Skin warm and dry. Normal skin color. Normal skin turgor. Extremities: No lower extremity edema. No calf tenderness Neuro: Oriented X 3. No motor deficit. No sensory deficit.No cerebellar signs , cranial nerves II-XII intact Medical Decision Making Differential Diagnosis Differential Diagnoses: The differential diagnosis associated with the presentation includes Anxiety/PE/pneumonia/pneumothorax Lab Data MDM Lab Attestation statement: I reviewed the patient's lab results. 03/16/24 03:47 03/16/24 03:47 Labs: Lab Results 03/16/24 Range/Units 03:47 WBC 6.5 (4.8-10.8) X10*3/uL RBC 4.16 L (4.20-5.50) X10*6/uL Hgb 13.8 (12.0-16.0) g/dl Hct 39.7 (37.0-47.0) % MCV 95.4 (80.0-98.0) fL MCH 33.2 H (27.0-33.0) pg MCHC 34.8 (31.0-35.0) g/dl RDW 13.2 (11.0-16.0) % Plt Count 233 (160-400) X10*3/uL MPV 9.6 (9.4-12.3) fL Immature Gran % (Auto) 0.2 (0.0-0.4) % Neut % (Auto) 44.5 L (45-73) % Lymph % (Auto) 45.2 H (20-40) % Desha % (Auto) 7.6 (2-11) % Eos % (Auto) 2.0 (0-4) % Baso % (Auto) 0.5 (0-2) % Lymph # (Auto) 2.9 (1.2-4.9) X10*3/uL Desha # (Auto) 0.5 (0.1-1.2) X10*3/uL Eos # (Auto) 0.1 (0.0-0.4) X10*3/uL Baso # (Auto) 0.0 (0.0-0.2) X10*3/uL Abs Immat Gran (auto) 0.01 (0.00-0.03) X10*3/uL Absolute Neuts (auto) 2.9 (2.0-8.3) x10*3/uL Absolute Nucleated RBC 0.000 (0.0-0.012) X10*3/uL Nucleated RBC % (auto) 0.0 (0.0-0.2) /100WBC D-Dimer High Sensitivty < 150 NG/ML Sodium 141 (135-145) mmol/L Potassium 3.4 (3.3-5.1) mmol/L Chloride 107 (96-108) mmol/L Carbon Dioxide 22 (22-29) mmol/L Anion Gap 15 (12-20) BUN 7 L (9-16) mg/dL Creatinine 0.76 (0.5-1.4) mg/dL Estim Creat Clear Calc 86.8 Estimated GFR > 60 Random Glucose 78 (60-115) mg/dL Calcium 9.2 (8.4-10.2) mg/dL Total Bilirubin 0.2 (0.0-1.0) mg/dL AST 26 (5-31) U/L ALT 15 (0-31) U/L Alkaline Phosphatase 67 (39-117) U/L Troponin I High Sens < 2.7 (<3.5-17.0) ng/L Total Protein 6.9 (6.5-8.0) g/dL Albumin 4.1 (3.5-5.0) g/dL Independent Interpretation I performed an independent interpretation of an: Plain X-Ray Radiology Impression Discussion of test interpretation with radiology: I have reviewed the radiologist's reading. Discharge Plan Discharge Clinical Impression: Anxiety Patient Disposition: Home, Self-Care Instructions: Anxiety (ED) Additional Instructions: Likely is anxiety which causing shortness of breath feeling Take medication follow with PCP Prescriptions: No Action omeprazole 20 mg capsule,delayed release(DR/EC) 1 cap PO DAILY sertraline 50 mg tablet 1 tab PO DAILY lorazepam 1 mg tablet 1 mg PO BEDTIME fluticasone propionate 50 mcg/actuation spray,suspension 1 spray intranasal DAILY Print Language: Occitan
--- NOTE | 2024-03-16 03:22 | ECG_ITS ---
Test Reason : SOB Blood Pressure : / mmHG Vent. Rate : 062 BPM Atrial Rate : 062 BPM P-R Int : 184 ms QRS Dur : 084 ms QT Int : 418 ms P-R-T Axes : 048 012 010 degrees QTc Int : 424 ms Normal sinus rhythm Cannot rule out Anterior infarct , age undetermined Abnormal ECG When compared with ECG of 08-SEP-2022 18:48, T wave amplitude has decreased in Anterior leads Referred By: Benny Farooq Electronically Signed By:HERB HOLGUIN MD
[2024-03-16 03:54] LABS: MANUAL DIFF FLAG NO
[2024-03-16 03:55] LABS: Basophils Percent Auto 0.5 % (0-2); Eosinophils Absolute Auto 0.1 X10*3/uL (0.0-0.4); Hematocrit 39.7 % (37.0-47.0); Hemoglobin 13.8 g/dl (12.0-16.0); Imm Gran Abs Auto 0.01 X10*3/uL (0.00-0.03); Imm Gran Pct Auto 0.2 % (0.0-0.4); Lymphocytes Absolute Auto 2.9 X10*3/uL (1.2-4.9); Lymphocytes Percent Auto 45.2 % (20-40); Mean Corpuscular HGB Conc 34.8 g/dl (31.0-35.0); Mean Corpuscular Hemoglobin 33.2 pg (27.0-33.0); Mean Corpuscular Volume 95.4 fL (80.0-98.0); Mean Platelet Volume 9.6 fL (9.4-12.3); Monocytes Absolute Auto 0.5 X10*3/uL (0.1-1.2); Monocytes Percent Auto 7.6 % (2-11); Neutrophils Absolute Auto 2.9 x10*3/uL (2.0-8.3); Neutrophils Percent Auto 44.5 % (45-73); Platelet Count 233 X10*3/uL (160-400); Red Blood Count 4.16 X10*6/uL (4.20-5.50); Red Cell Distribution Width 13.2 % (11.0-16.0); White Blood Count 6.5 X10*3/uL (4.8-10.8)
[2024-03-16 04:00] VITALS: BP 137/81; PULSE 79; RESP 17; TEMP 36.8; O2SAT 99
[2024-03-16 04:09] LABS: D Dimer High Sensitivity < 150 NG/ML
[2024-03-16 04:12] LABS: Creatinine Clr Calc Pharmacy 86.8; Estimated Glomerular Filt Rate > 60; Potassium 3.4 mmol/L (3.3-5.1)
[2024-03-16 04:14] LABS: Carbon Dioxide 22 mmol/L (22-29); Chloride 107 mmol/L (96-108); Sodium 141 mmol/L (135-145)
[2024-03-16 04:15] LABS: Alanine Aminotransferase 15 U/L (0-31); Albumin Level 4.1 g/dL (3.5-5.0); Alkaline Phosphatase 67 U/L (39-117); Anion Gap 15 (12-20); Aspartate Amino Transferase 26 U/L (5-31); Bilirubin Total 0.2 mg/dL (0.0-1.0); Blood Urea Nitrogen 7 mg/dL (9-16); Calcium 9.2 mg/dL (8.4-10.2); Glucose Random 78 mg/dL (60-115); Total Protein 6.9 g/dL (6.5-8.0)
[2024-03-16 04:23] LABS: Troponin-I High Sensitivity < 2.7 ng/L (<3.5-17.0)
== END 2024-03-16 06:00 | disposition home or self-care (01) ==
PROVIDERS: Emergency Provider Internal Medicine
DX: F41.9 Anxiety disorder, unspecified (principal); R06.02 Shortness of breath; F17.210 Nicotine dependence, cigarettes, uncomplicated; Z79.899 Other long term (current) drug therapy
CPT/HCPCS: 36415; 80053; 84484; 85025; 85379; 93005; 99283

== ENCOUNTER → 2024-03-16 03:22 | Outpatient (BNV) | payer OTHER, SELFPAY | PROVIDERS: Emergency Provider Internal Medicine; Visit Provider Internal Medicine Cardiovascular Disease | DX: R94.31 Abnormal electrocardiogram [ECG] [EKG] (principal) | CPT/HCPCS: 93010 ==

== ENCOUNTER 2024-05-23 04:22 | Emergency (ER) | payer OTHER, SELFPAY ==
[2024-05-23] VITALS (7 sets, daily range): BP systolic 101–130; BP diastolic 52–90; PULSE 68–81; RESP 15–18; TEMP 36.2–36.6; O2SAT 95–99; BMI 27.1
--- NOTE | ~2024-05-23 | XR_ITS ---
EXAMINATION: XR CHEST CLINICAL INFORMATION: Cough. COMPARISON: March 15, 2024 TECHNIQUE: Frontal view of the chest was obtained. FINDINGS: No significant abnormality is noted involving the heart, lungs, mediastinum, bony thorax or soft tissues. XR/XR chest 1V IMPRESSION: Unremarkable examination. Electronically signed by: Bret Graham MD 05/23/2024 05:22 AM EDT
--- NOTE | 2024-05-23 04:26 | ECG_ITS ---
Test Reason : CHEST PAIN Blood Pressure : / mmHG Vent. Rate : 069 BPM Atrial Rate : 069 BPM P-R Int : 190 ms QRS Dur : 086 ms QT Int : 398 ms P-R-T Axes : 051 026 019 degrees QTc Int : 426 ms Normal sinus rhythm Nonspecific ST abnormality Abnormal ECG When compared with ECG of 16-MAR-2024 03:26, Nonspecific ST abnormality is now Present Referred By: Generic ED Physician Electronically Signed By:CHELLE KENNEDY
--- NOTE | 2024-05-23 04:38 | MHC.EDTECH ---
Patient was biba from home ,vitals taken ,Patient ekg taken and was read by Provider ,Patient was hooked up to shelter monitor ,Patient got change into hospital attire ,Call power within Pt reach .
--- NOTE | 2024-05-23 04:50 | PC.NURSE ---
pt is alert and oriented, skin appropriate for ethnicity, respirations even and unlabored, ls clear, pt reports cough x3 days and left sided intermittent chest pain that radiates to both of her shoulders/arms, vs stable and ns on the monitor
[2024-05-23 04:51] LABS: MANUAL DIFF FLAG NO
[2024-05-23 04:52] LABS: Basophils Percent Auto 0.4 % (0-2); Eosinophils Absolute Auto 0.1 X10*3/uL (0.0-0.4); Eosinophils Percent Auto 1.8 % (0-4); Hematocrit 39.6 % (37.0-47.0); Imm Gran Abs Auto 0.02 X10*3/uL (0.00-0.03); Imm Gran Pct Auto 0.3 % (0.0-0.4); Lymphocytes Absolute Auto 3.8 X10*3/uL (1.2-4.9); Lymphocytes Percent Auto 48.2 % (20-40); Mean Corpuscular HGB Conc 35.4 g/dl (31.0-35.0); Mean Corpuscular Volume 93.4 fL (80.0-98.0); Mean Platelet Volume 9.3 fL (9.4-12.3); Monocytes Absolute Auto 0.5 X10*3/uL (0.1-1.2); Monocytes Percent Auto 6.1 % (2-11); Neutrophils Absolute Auto 3.5 x10*3/uL (2.0-8.3); Neutrophils Percent Auto 43.2 % (45-73); Platelet Count 259 X10*3/uL (160-400); Red Blood Count 4.24 X10*6/uL (4.20-5.50)
[2024-05-23 05:08] LABS: Alanine Aminotransferase 32 U/L (0-31); Alkaline Phosphatase 65 U/L (39-117); Anion Gap 15 (12-20); Aspartate Amino Transferase 43 U/L (5-31); Bilirubin Direct < 0.2 mg/dL (0.0-0.5); Bilirubin Total 0.2 mg/dL (0.0-1.0); Blood Urea Nitrogen 5 mg/dL (9-16); Calcium 8.8 mg/dL (8.4-10.2); Carbon Dioxide 21 mmol/L (22-29); Chloride 101 mmol/L (96-108); Creatinine Clr Calc Pharmacy 99.8; Estimated Glomerular Filt Rate > 60; Glucose Random 87 mg/dL (60-115); Lipase 31 U/L (8-78); Potassium 3.3 mmol/L (3.3-5.1); Sodium 134 mmol/L (135-145); Total Protein 6.8 g/dL (6.5-8.0)
[2024-05-23 05:15] LABS: Troponin-I High Sensitivity < 2.7 ng/L (<3.5-17.0)
[2024-05-23 05:28] LABS: Influenza A PCR NEGATIVE (Negative); Influenza B PCR NEGATIVE (Negative); Resp Syncy Virus RNA Qual PCR NEGATIVE (Negative); SARS COV2 PCR INHOUSE NEGATIVE (Negative)
--- NOTE | 2024-05-23 06:33 | ED_ITS ---
HPI - Chest Pain General Chief Complaint: Chest Pain Stated Complaint: CP,ANXIETY X3 DAYS PER EMS Time Seen by Provider: 05/23/24 06:33 Source: patient and RN notes reviewed Mode of arrival: ambulatory Limitations: no limitations History of Present Illness ED Provider: Lanette Galloway PA-C HPI narrative: This is a 53-year-old female, with a history of anxiety and depression, who presents emergency department with complaints of chest pain. Patient states that over the last 3-4 days she has had congestion, dry cough, body aches, and chills. She states that last night she drank 6 beers and started to think about her parents who and developed chest pain. She states that the chest pain she believes is attributed to her anxiety as she has a history of this. She states that the chest pain has been constant, describes this as a sharp pain however states that it has been alleviated significantly since onset several hours ago. She states that the pain was constant and radiated down both her arms. She does report that she felt palpitations and nausea at the time. She denies any fevers, chills, pleuritic chest pain, abdominal pain, vomiting or diarrhea. No previous cardiac events. No other complaints or concerns at this time. MD complaint: chest pain Timing of current episode: episodic Onset: during rest Pain location: left chest and right chest Pain radiation: right arm and left arm Severity: moderate Quality: sharp Relieving factors: rest Exacerbating factors: nothing Context: recent illness Associated symptoms: nausea and palpitations Treatment prior to arrival: none Risk Factors Coronary artery disease risk factors: none Thoracic aortic dissection risk factors: none Related Data On Oral Contraceptives: No Home Medications ?Medication ?Instructions ?Recorded ?Confirmed omeprazole 20 mg capsule,delayed 1 cap PO DAILY 01/12/22 04/20/23 release sertraline 50 mg tablet 1 tab PO DAILY 01/12/22 04/20/23 fluticasone propionate 50 1 spray intranasal DAILY 04/20/23 04/20/23 mcg/actuation nasal spray,suspension lorazepam 1 mg tablet 1 mg PO BEDTIME 04/20/23 04/20/23 ibuprofen 600 mg tablet 600 mg PO Q6H 05/23/24 venlafaxine 75 mg capsule,extended 75 mg PO QAM 05/23/24 release 24 hr Allergies Allergy/AdvReac Type Severity Reaction Status Date / Time No Known Allergies Allergy Verified 05/23/24 04:34 Review of Systems 2 Review of Systems: Yes all other systems are reviewed and are negative Constitutional: Constitutional: Reports as per [facility] Past Medical History Attestation statement: The following information was validated with the patient. Medical History Renal calculi GERD (gastroesophageal reflux disease) Anxiety Depression ETOH abuse Surgical History Hx of straightening of nasal septum Social History Social History Alcohol intake: current Alcohol intake frequency: 3 or more drinks per day Alcohol type: beer Patient Tobacco Use Status: Current everyday Tobacco user Smoked in Last 30 Days: Yes Use of substances other than those prescribed or required for medical reasons: No Advance Directives: No Do you have a plan to hurt others: No Plan Current occupational status: disabled Current occupation: rt knee Physical Exam 2 Vital Signs: Vital Signs: Last Vital Signs Temp 97.6 F 05/23/24 12:20 Pulse 70 05/23/24 12:20 Resp 15 05/23/24 12:20 BP 102/54 L 05/23/24 12:20 Pulse Ox 95 05/23/24 12:20 O2 Del Method Room Air 05/23/24 12:20 BMI result Body Mass Index 27.1 Const: General: cooperative, comfortable and no acute distress O rientation/consciousness: patient oriented x3 Limitations: no limitations HEENT: Head: Yes normal to inspection, Yes normocephalic and Yes atraumatic Ears: hearing grossly normal bilaterally General nose exam: Normal external nose present Face and sinus: Yes normal facial exam Mouth: Normal oral and palatal mucosa present, oropharynx normal and moist mucous membranes Throat: Yes posterior oropharynx normal Eyes: General: appearance normal, both eyes and all related structures E yelids: Yes eyelids normal Conjunctivae: conjunctivae normal Sclerae: s clerae normal Pupils: Equal, round and reactive pupils present EOM: EOMs intact bilaterally Neck: Neck: Yes normal visual inspection, Yes full ROM and Yes no lymphadenopathy Lymphatic: no lymphadenopathy noted Chest: Chest palpation & inspection: normal inspection of the chest Resp: Effort & Inspection: normal respiratory effort and able to speak in complete sentences Auscultation: clear to auscultation bilaterally, no crackles, no rales, no rhonchi and no wheezes Cardio: Rate: regular rate Rhythm: regular rhythm Heart sounds: S1 normal heart sound present and S2 normal heart sound present GI: Inspection: Yes normal to inspection Skin: General skin exam: no rashes or lesions noted Trauma: no lacerations or abrasions Wounds: no wounds Neuro: General: patient oriented x3 and moves all extremities Cranial nerves: Yes Equal, round and reactive pupils present Extrem: Other: No calf tenderness General: Yes normal to inspection Right upper extremity: normal to inspection Left upper extremity: normal to inspection Right lower extremity: normal to inspection Left lower extremity: normal to inspection Course Reevaluation(s) Reevaluation #1: Second troponin was negative, workup today reassuring. Discussed findings with patient. She is feeling much better, given strict return precautions and advised follow-up with PCP. She understands agrees with plan. Patient stable for discharge. Medical Decision Making Medical Decision Making [facility] Narrative: This is a 53-year-old female, with a history of anxiety and depression, who presents emergency department with complaints of chest pain. Patient states that over the last several days she has been sick with an upper respiratory like illness which included a dry cough, body aches, and chills. She states that last night while she was thinking of her parents she became upset and developed chest pain. She states that the chest pain has been constant, however much better since her onset several hours ago. On arrival, vital signs within normal limits, she is speaking in full sentences under no acute distress. Lungs are clear to auscultation bilaterally. Differential diagnoses include ACS, costochondritis, URI, COVID, PE unlikely. Plan: Labs, EKG, chest x-ray Differential Diagnosis Differential Diagnoses: The differential diagnosis associated with the presentation includes See above Admission/Observation Consideration of admission/observation: Escalation of care including admission/observation considered Lab Data [facility] Lab Attestation statement: I reviewed the patient's lab results. No leukocytosis, stable H&H, chemistry revealing slight hyponatremia at 1:34 a.m., liver transaminases slightly elevated > appears to be similar from previous. First troponin less than 2.7 2nd troponin negative. Negative viral swabs 05/23/24 04:47 05/23/24 04:47 Labs: Lab Results 05/23/24 05/23/24 Range/Units 04:47 08:16 WBC 8.0 (4.8-10.8) X10*3/uL RBC 4.24 (4.20-5.50) X10*6/uL Hgb 14.0 (12.0-16.0) g/dl Hct 39.6 (37.0-47.0) % MCV 93.4 (80.0-98.0) fL MCH 33.0 (27.0-33.0) pg MCHC 35.4 H (31.0-35.0) g/dl RDW 13.0 (11.0-16.0) % Plt Count 259 (160-400) X10*3/uL MPV 9.3 L (9.4-12.3) fL Immature Gran % (Auto) 0.3 (0.0-0.4) % Neut % (Auto) 43.2 L (45-73) % Lymph % (Auto) 48.2 H (20-40) % [place] % (Auto) 6.1 (2-11) % Eos % (Auto) 1.8 (0-4) % Baso % (Auto) 0.4 (0-2) % Lymph # (Auto) 3.8 (1.2-4.9) X10*3/uL [place] # (Auto) 0.5 (0.1-1.2) X10*3/uL Eos # (Auto) 0.1 (0.0-0.4) X10*3/uL Baso # (Auto) 0.0 (0.0-0.2) X10*3/uL Abs Immat Gran (auto) 0.02 (0.00-0.03) X10*3/uL Absolute Neuts (auto) 3.5 (2.0-8.3) x10*3/uL Absolute Nucleated RBC 0.000 (0.0-0.012) X10*3/uL Nucleated RBC % (auto) 0.0 (0.0-0.2) /100WBC Sodium 134 L (135-145) mmol/L Potassium 3.3 (3.3-5.1) mmol/L Chloride 101 (96-108) mmol/L Carbon Dioxide 21 L (22-29) mmol/L Anion Gap 15 (12-20) BUN 5 L (9-16) mg/dL Creatinine 0.68 (0.5-1.4) mg/dL Estim Creat Clear Calc 99.8 Estimated GFR > 60 Random Glucose 87 (60-115) mg/dL Calcium 8.8 (8.4-10.2) mg/dL Total Bilirubin 0.2 (0.0-1.0) mg/dL Direct Bilirubin < 0.2 (0.0-0.5) mg/dL AST 43 H (5-31) U/L ALT 32 H (0-31) U/L Alkaline Phosphatase 65 (39-117) U/L Troponin I High Sens < 2.7 < 2.7 (<3.5-17.0) ng/L Total Protein 6.8 (6.5-8.0) g/dL Albumin 4.0 (3.5-5.0) g/dL Lipase 31 (8-78) U/L Influenza Type A (PCR) NEGATIVE (Negative) Influenza Type B (PCR) NEGATIVE (Negative) RSV RNA Qual (PCR) NEGATIVE (Negative) SARS-CoV-2 RNA (RT-PCR) NEGATIVE (Negative) Independent Interpretation I performed an independent interpretation of an: EKG Interpretation: EKG normal sinus rhythm at a ventricular rate of 69 beats per minute, QT/QTC 398/426, no ST elevation or depression Radiology Impression Discussion of test interpretation with radiology: I have reviewed the radiologist's reading. Radiologist Impression: XR/XR chest 1V IMPRESSION: Unremarkable examination. Electronically signed by: Bret Graham MD 05/23/2024 05:22 AM EDT RP Dictated By: Bret Graham MD Discharge Plan Discharge Clinical Impression: Chest pain Patient Disposition: Home, Self-Care Instructions: Chest Pain (ED) Additional Instructions: You were seen in the emergency department due to chest pain. It is unclear what is causing you to have chest pain however your workup today was reassuring. You tested negative for COVID, flu, RSV. Drink plenty of fluids get plenty of rest. Follow-up with your primary care physician regarding this visit. If any new or worsening symptoms occur including but not limited to worsening chest pain, shortness of breath, please return for re-evaluation. Prescriptions: No Action omeprazole 20 mg capsule,delayed release(DR/EC) 1 cap PO DAILY sertraline 50 mg tablet 1 tab PO DAILY venlafaxine 75 mg capsule,extended release 24hr 75 mg PO QAM ibuprofen 600 mg tablet 600 mg PO Q6H lorazepam 1 mg tablet 1 mg PO BEDTIME fluticasone propionate 50 mcg/actuation spray,suspension 1 spray intranasal DAILY Interventions: ED Discharge Assessment Last Done: 05/23/24 12:20 Discharge Date/Time: 05/23/24 12:21 Print Language: Nigerian
[2024-05-23 08:46] LABS: Troponin-I High Sensitivity < 2.7 ng/L (<3.5-17.0)
--- NOTE | 2024-05-23 11:00 | MHC.EDTECH ---
This tech entered room to find patient had removed IV from left ac area. Cleaned patient from blood and applied bandage. EVA muñoz.
--- NOTE | 2024-05-23 11:51 | MHC.EDTECH ---
Conversation with patient regarding discharge and transportation. 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 I asked if she had any other family/friends she could call and she stated no. I asked how she planned on getting home and she stated maybe a taxi. Relayed information to Erinn VELASQUEZ.
== END 2024-05-23 12:21 | disposition home or self-care (01) ==
PROVIDERS: Physician Assistant Medical; Emergency Provider Student in an Organized Health Care Education/Training Program; PCP Internal Medicine
DX: R07.9 Chest pain, unspecified (principal); F17.200 Nicotine dependence, unspecified, uncomplicated; Z03.818 Encounter for observation for suspected exposure to other biological agents ruled out; R05.9 Cough, unspecified
CPT/HCPCS: 0241U; 36415; 71045; 80048; 80076; 83690; 84484; 85025; 93005; 99283; 99285

== ENCOUNTER 2024-06-20 17:05 | Emergency (ER) | payer OTHER, SELFPAY ==
--- NOTE | ~2024-06-20 | CT_ITS ---
EXAMINATION: CT ABDOMEN AND PELVIS WITHOUT CONTRAST CLINICAL INFORMATION: Left flank pain COMPARISON: None available. TECHNIQUE: Multidetector volumetric imaging was performed from the superior aspect of the liver through the pubic symphysis. Sagittal and coronal reformatted images were obtained on the technologist's workstation. This CT examination was performed using dose optimization techniques as appropriate, variously including the following: *Automated exposure control *Adjustment of mA and/or kV according to patient size (this includes techniques or standardized protocols for targeted exams where dose is matched to indication/reason for exam; i.e. extremities or head) *Use of iterative reconstruction technique DLP: 535 mGy-cm FINDINGS: LUNG BASES: The visualized lung bases are unremarkable. LIVER, GALLBLADDER, AND BILIARY TREE: Diffuse fatty infiltration of the liver. The gallbladder is unremarkable with no evidence of radiopaque gallstones, gallbladder wall thickening, or obvious pericholecystic inflammatory changes. PANCREAS: Unremarkable. SPLEEN: Unremarkable. ADRENAL GLANDS: Unremarkable. KIDNEYS AND URETERS: The kidneys are normal in size, shape, and attenuation. No hydronephrosis, hydroureter, or calculi seen. No perinephric stranding. BLADDER: Unremarkable. GASTROINTESTINAL TRACT: The small and large bowel are unremarkable. No focal inflammatory process or obstruction. ABDOMINAL WALL: No significant hernia is appreciated. LYMPH NODES: Normal. VASCULAR: Scattered atherosclerotic calcifications. PELVIC VISCERA: Unremarkable. OSSEOUS STRUCTURES: Severe L5-S1 degenerative disc disease. Moderate bilateral L5-S1 and L4-L5 facet arthrosis. CT/CT abdomen pelvis wo IV con IMPRESSION: 1. No focal inflammatory process or obstruction. 2. Diffuse fatty infiltration of the liver. 3. No renal or ureteral calculi. No hydronephrosis. Fleischner guidelines were followed. Electronically signed by: Juan Carlos Cunningham MD 06/20/2024 09:05 PM EDT
[2024-06-20 17:30] VITALS: BP 154/89; PULSE 84; RESP 18; TEMP 36.8; O2SAT 98; BMI 25.9
--- NOTE | 2024-06-20 17:30 | ED.GENADULT ---
HPI - General Adult General Chief complaint: Abdominal Pain Stated complaint: lwr back pain Time Seen by Provider: 06/20/24 19:26 Source: patient Limitations: no limitations History of Present Illness ED Provider: Valeria Elizalde PA-C HPI narrative: 53 y/o F presents with low back pain x1 week. 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 Over the past week, her symptoms have progressed. She is now having left flank pain that radiates around to the left lower abdomen and suprapubic region. Pain is intermittent and fluctuates in intensity. Patient unable to describe the nature of her discomfort. When the pain is severe, it causes nausea. Denies history of kidney stones, dysuria, hematuria, diarrhea or fever. Denies urinary retention, bowel incontinence, paresthesia, weakness of lower extremity. Related Data Home Medications ?Medication ?Instructions ?Recorded ?Confirmed omeprazole 20 mg capsule,delayed 1 cap PO DAILY 01/12/22 04/20/23 release sertraline 50 mg tablet 1 tab PO DAILY 01/12/22 04/20/23 fluticasone propionate 50 1 spray intranasal DAILY 04/20/23 04/20/23 mcg/actuation nasal spray,suspension lorazepam 1 mg tablet 1 mg PO BEDTIME 04/20/23 04/20/23 ibuprofen 600 mg tablet 600 mg PO Q6H 05/23/24 venlafaxine 75 mg capsule,extended 75 mg PO QAM 05/23/24 release 24 hr Previous Rx's ?Medication ?Instructions ?Recorded cyclobenzaprine 10 mg tablet 10 mg PO TID PRN muscle spasm #15 06/20/24 tabs meloxicam 15 mg tablet 15 mg PO DAILY #7 tabs 06/20/24 tizanidine 6 mg capsule 6 mg PO Q8H PRN muscle spasticity 06/20/24 5 days #15 caps Allergies Allergy/AdvReac Type Severity Reaction Status Date / Time No Known Allergies Allergy Verified 06/20/24 17:32 Review of Systems Constitutional: Constitutional: Denies fatigue and Denies fever(s) Cardiovascular: Cardiovascular: Reports chest pain and Denies dyspnea Respiratory: Respiratory: Denies cough and Denies dyspnea Gastrointestinal: Gastrointestinal: Reports abdominal pain, Reports nausea and Denies vomiting Genitourinary: Genitourinary: Denies dysuria Endocrine: Endocrine: Denies fatigue PMFSH Past Medical History Attestation statement: The following information was validated with the patient. Medical History Renal calculi GERD (gastroesophageal reflux disease) Anxiety Depression ETOH abuse Surgical History Hx of straightening of nasal septum Social History Social History Alcohol intake: current Alcohol intake frequency: 3 or more drinks per day Alcohol type: beer Patient Tobacco Use Status: Current everyday Tobacco user Smoked in Last 30 Days: Yes Use of substances other than those prescribed or required for medical reasons: No Advance Directives: No Advance Directives Information Provided: Yes Patient : No Current occupational status: disabled Current occupation: rt knee Physical Exam ED Vital Signs: Vital Signs - 24 hr 06/20/24 17:30 06/20/24 19:29 06/20/24 21:48 Temperature 98.3 F 98.3 F 98.4 F Pulse Rate 84 72 68 Respiratory Rate 18 16 16 Blood Pressure 154/89 H 113/74 103/61 Pulse Oximetry 98 98 98 Oxygen Delivery Method Room Air Room Air Room Air 06/20/24 21:57 Temperature 98.4 F Pulse Rate 68 Respiratory Rate 16 Blood Pressure 103/61 Pulse Oximetry 98 Oxygen Delivery Method Room Air BMI result Body Mass Index 25.9 Const Other: Well in appearance, however appears uncomfortable, as if she can not find a comfortable position while sitting on the bed Orientation/consciousness: patient oriented x3 Resp Other: Nonlabored respirations Cardio Other: Normal peripheral perfusion GI Other: Mild tenderness over suprapubic region and left lower quadrant without guarding, overall abdomen is soft nondistended Back/Spine/Pelvis Other: No CVA tenderness Skin Other: Warm dry no rash Neuro General: patient oriented x3, no focal motor deficits and CN's II-XI intact bilaterally Extrem Other: Ambulates with normal steady gait, strength 5/5 bilateral lower extremities Psych Other: Calm cooperative Course Course Course Narrative: This is an RME: Additional HPI, ROS, PE not included below will be deferred to primary provider. RME assessment and note performed by: Lanette Galloway PA-C This is a [id number]-female who presents to the ER with complaints of lower abdominal pain, dysuira, urinary frequency. Reporting back pain as well. No hematuria. Plan: UA, Labs Medications Administered Discontinued Medications Generic Name Dose Route Start Last Admin Trade Name Mark PRN Reason Stop Dose Admin Diazepam 5 mg 06/20/24 21:36 06/20/24 21:52 Diazepam 5 Mg Tablet PO 06/20/24 21:37 5 mg ONCE ONE Administration Ketorolac Tromethamine 15 mg 06/20/24 19:35 06/20/24 19:50 Ketorolac Tromethamine 15 Mg/Ml Vial IVPUSH 06/20/24 19:36 15 mg ONCE ONE Administration Ondansetron HCl 4 mg 06/20/24 19:35 06/20/24 19:50 Ondansetron Hcl 4 Mg/2 Ml Vial IVPUSH 06/20/24 19:36 4 mg ONCE ONE Administration Medical Decision Making Medical Decision Making [facility] Narrative: 53 y/o F presents with low back pain x1 week. 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 Over the past week, her symptoms have progressed. She is now having left flank pain that radiates around to the left lower abdomen and suprapubic region. Pain is intermittent and fluctuates in intensity. Patient unable to describe the nature of her discomfort. When the pain is severe, it causes nausea. Denies history of kidney stones, dysuria, hematuria, diarrhea or fever. Denies urinary retention, bowel incontinence, paresthesia, weakness of lower extremity. No relevant chronic issues History: Per patient I have considered the following differential diagnoses: Lumbar strain, lumbar radiculopathy, cauda equina, renal colic, diverticulitis Plan: Patient presents with a likely lumbar strain without radicular symptoms. She has no red flag signs symptoms concerning for cord compression. However her symptoms have changed, she is now having radiation of pain to the left lower abdomen and suprapubic region. Given the nature of her discomfort, I am considering potential renal colic. We will obtain a CT. Given Toradol and Zofran at this time. She is just about to give a urine sample, other screening labs are in process. I have independently reviewed the following tests: Labs: No leukocytosis, not anemic, no electrolyte abnormality, urine not infected no hematuria CT abdomen and pelvis:CT ABDOMEN AND PELVIS WITHOUT CONTRAST CLINICAL INFORMATION: Left flank pain COMPARISON: None available. TECHNIQUE: Multidetector volumetric imaging was performed from the superior aspect of the liver through the pubic symphysis. Sagittal and coronal reformatted images were obtained on the technologist's workstation. This CT examination was performed using dose optimization techniques as appropriate, variously including the following: *Automated exposure control *Adjustment of mA and/or kV according to patient size (this includes techniques or standardized protocols for targeted exams where dose is matched to indication/reason for exam; i.e. extremities or head) *Use of iterative reconstruction technique DLP: 535 mGy-cm FINDINGS: LUNG BASES: The visualized lung bases are unremarkable. LIVER, GALLBLADDER, AND BILIARY TREE: Diffuse fatty infiltration of the liver. The gallbladder is unremarkable with no evidence of radiopaque gallstones, gallbladder wall thickening, or obvious pericholecystic inflammatory changes. PANCREAS: Unremarkable. SPLEEN: Unremarkable. ADRENAL GLANDS: Unremarkable. KIDNEYS AND URETERS: The kidneys are normal in size, shape, and attenuation. No hydronephrosis, hydroureter, or calculi seen. No perinephric stranding. BLADDER: Unremarkable. GASTROINTESTINAL TRACT: The small and large bowel are unremarkable. No focal inflammatory process or obstruction. ABDOMINAL WALL: No significant hernia is appreciated. LYMPH NODES: Normal. VASCULAR: Scattered atherosclerotic calcifications. PELVIC VISCERA: Unremarkable. OSSEOUS STRUCTURES: Severe L5-S1 degenerative disc disease. Moderate bilateral L5-S1 and L4-L5 facet arthrosis. CT/CT abdomen pelvis wo IV con IMPRESSION: 1. No focal inflammatory process or obstruction. 2. Diffuse fatty infiltration of the liver. 3. No renal or ureteral calculi. No hydronephrosis. Fleischner guidelines were followed. Electronically signed by: Juan Carlos Cunningham MD 06/20/2024 09:05 PM EDT Lab Data 06/20/24 17:41 06/20/24 17:41 Labs: Lab Results 06/20/24 06/20/24 Range/Units 17:41 19:52 WBC 6.1 (4.8-10.8) X10*3/uL RBC 4.53 (4.20-5.50) X10*6/uL Hgb 14.7 (12.0-16.0) g/dl Hct 43.3 (37.0-47.0) % MCV 95.6 (80.0-98.0) fL MCH 32.5 (27.0-33.0) pg MCHC 33.9 (31.0-35.0) g/dl RDW 13.3 (11.0-16.0) % Plt Count 254 (160-400) X10*3/uL MPV 9.6 (9.4-12.3) fL Immature Gran % (Auto) 0.2 (0.0-0.4) % Neut % (Auto) 58.7 (45-73) % Lymph % (Auto) 30.5 (20-40) % [place] % (Auto) 8.4 (2-11) % Eos % (Auto) 1.5 (0-4) % Baso % (Auto) 0.7 (0-2) % Lymph # (Auto) 1.9 (1.2-4.9) X10*3/uL [place] # (Auto) 0.5 (0.1-1.2) X10*3/uL Eos # (Auto) 0.1 (0.0-0.4) X10*3/uL Baso # (Auto) 0.0 (0.0-0.2) X10*3/uL Abs Immat Gran (auto) 0.01 (0.00-0.03) X10*3/uL Absolute Neuts (auto) 3.6 (2.0-8.3) x10*3/uL Absolute Nucleated RBC 0.000 (0.0-0.012) X10*3/uL Nucleated RBC % (auto) 0.0 (0.0-0.2) /100WBC Sodium 142 (135-145) mmol/L Potassium 4.2 D (3.3-5.1) mmol/L Chloride 108 (96-108) mmol/L Carbon Dioxide 28 (22-29) mmol/L Anion Gap 10 L (12-20) BUN 8 L (9-16) mg/dL Creatinine 0.70 (0.5-1.4) mg/dL Estim Creat Clear Calc 94.9 Estimated GFR > 60 Random Glucose 94 (60-115) mg/dL Calcium 9.7 D (8.4-10.2) mg/dL Total Bilirubin 0.5 (0.0-1.0) mg/dL AST 45 H (5-31) U/L ALT 49 H (0-31) U/L Alkaline Phosphatase 72 (39-117) U/L Total Protein 7.4 (6.5-8.0) g/dL Albumin 4.3 (3.5-5.0) g/dL Urine Color Yellow Urine Appearance Clear Urine pH 6.0 (5.0-9.0) Ur Specific [place] 1.010 (1.005-1.025) Urine Protein Negative (Neg-Trace) mg/dL Urine Glucose (UA) Negative (Negative) mg/dL Urine Ketones Negative (Negative) mg/dL Urine Blood Negative (Negative) Urine Nitrite Negative (Negative) Ur Leukocyte Esterase Negative (Negative) Urine Test NEGATIVE (NEGATIVE) Discharge Plan Discharge Clinical Impression: Lumbar strain, Arthritis of lumbar spine Patient Disposition: Home, Self-Care Instructions: Osteoarthritis (ED), Low Back Strain (ED) Additional Instructions: All of your screening labs were normal. The CT scan revealed that you do have arthritic changes in your low back, hence the reasoning why you were having such exacerbation of pain since your injury. See home care instructions. Use the meloxicam as directed, this is an anti-inflammatory, take it daily with food. Do not take any additional anti-inflammatories i.e. such as ibuprofen or Motrin. Use the muscle relaxant, the tizanidine, as needed for additional pain. This medication may cause drowsiness, do not drive or operate machinery while taking the medication. Follow up with your primary care provider as needed. Prescriptions: New meloxicam 15 mg tablet 15 mg PO DAILY Qty: 7 0RF tizanidine 6 mg capsule 6 mg PO Q8H PRN (Reason: muscle spasticity) 5 Days Qty: 15 0RF cyclobenzaprine 10 mg tablet 10 mg PO TID PRN (Reason: muscle spasm) Qty: 15 0RF No Action omeprazole 20 mg capsule,delayed release(DR/EC) 1 cap PO DAILY sertraline 50 mg tablet 1 tab PO DAILY venlafaxine 75 mg capsule,extended release 24hr 75 mg PO QAM ibuprofen 600 mg tablet 600 mg PO Q6H lorazepam 1 mg tablet 1 mg PO BEDTIME fluticasone propionate 50 mcg/actuation spray,suspension 1 spray intranasal DAILY Interventions: ED Discharge Assessment Last Done: 06/20/24 21:57 Discharge Date/Time: 06/20/24 21:58 Print Language: Cypriot
[2024-06-20 17:46] LABS: MANUAL DIFF FLAG NO
[2024-06-20 17:52] LABS: Basophils Percent Auto 0.7 % (0-2); Eosinophils Absolute Auto 0.1 X10*3/uL (0.0-0.4); Eosinophils Percent Auto 1.5 % (0-4); Hematocrit 43.3 % (37.0-47.0); Hemoglobin 14.7 g/dl (12.0-16.0); Imm Gran Abs Auto 0.01 X10*3/uL (0.00-0.03); Imm Gran Pct Auto 0.2 % (0.0-0.4); Lymphocytes Absolute Auto 1.9 X10*3/uL (1.2-4.9); Lymphocytes Percent Auto 30.5 % (20-40); Mean Corpuscular HGB Conc 33.9 g/dl (31.0-35.0); Mean Corpuscular Hemoglobin 32.5 pg (27.0-33.0); Mean Corpuscular Volume 95.6 fL (80.0-98.0); Mean Platelet Volume 9.6 fL (9.4-12.3); Monocytes Absolute Auto 0.5 X10*3/uL (0.1-1.2); Monocytes Percent Auto 8.4 % (2-11); Neutrophils Absolute Auto 3.6 x10*3/uL (2.0-8.3); Neutrophils Percent Auto 58.7 % (45-73); Platelet Count 254 X10*3/uL (160-400); Red Blood Count 4.53 X10*6/uL (4.20-5.50); Red Cell Distribution Width 13.3 % (11.0-16.0); White Blood Count 6.1 X10*3/uL (4.8-10.8)
[2024-06-20 18:02] LABS: Alanine Aminotransferase 49 U/L (0-31); Albumin Level 4.3 g/dL (3.5-5.0); Alkaline Phosphatase 72 U/L (39-117); Anion Gap 10 (12-20); Aspartate Amino Transferase 45 U/L (5-31); Bilirubin Total 0.5 mg/dL (0.0-1.0); Blood Urea Nitrogen 8 mg/dL (9-16); Calcium 9.7 mg/dL (8.4-10.2); Carbon Dioxide 28 mmol/L (22-29); Chloride 108 mmol/L (96-108); Creatinine Clr Calc Pharmacy 94.9; Estimated Glomerular Filt Rate > 60; Glucose Random 94 mg/dL (60-115); Potassium 4.2 mmol/L (3.3-5.1); Sodium 142 mmol/L (135-145); Total Protein 7.4 g/dL (6.5-8.0)
[2024-06-20 19:29] VITALS: BP 113/74; PULSE 72; RESP 16; TEMP 36.8; O2SAT 98
[2024-06-20] MEDS: Ketorolac Tromethamine 15 MG/ML VIAL IVPUSH (19:50)
[2024-06-20] MEDS: ondansetron HCL 4 MG/2 ML VIAL IVPUSH (19:50)
[2024-06-20 19:59] LABS: Appearance Urine Clear; Color Urine Yellow; Glucose Urine UA Negative (Negative); Leukocyte Esterase Urine Negative (Negative); Nitrite Urine Negative (Negative); Urine Blood Negative (Negative); Urine Ketones Negative (Negative); Urine Protein Negative (Neg-Trace)
[2024-06-20 20:00] LABS: UPreg QC Valid YES; Urine Pregnancy NEGATIVE (NEGATIVE)
--- NOTE | 2024-06-20 20:18 | PC.NURSE ---
this rn assumed care of pt, pt ambulated from waiting room. pt a&ox4, vss, respirations even and unlabored. pt reports lower abdominal pain radiating to lower back x 4 days. pt reports pain at 10/10. 20g placed in r ac, pt medicated per mar. pt reports nausea x 4 days , denies vomitting. pt reports increased frequency of urination and regular bowel movements. pt recieived prescription from previous provider and reports no relief.
[2024-06-20 21:48] VITALS: BP 103/61; PULSE 68; RESP 16; TEMP 36.9; O2SAT 98
[2024-06-20] MEDS: diazePAM 5 MG TABLET PO (21:52)
[2024-06-20 21:57] VITALS: BP 103/61; PULSE 68; RESP 16; TEMP 36.9; O2SAT 98
== END 2024-06-20 21:58 | disposition home or self-care (01) ==
PROVIDERS: Physician Assistant Medical; Emergency Provider Student in an Organized Health Care Education/Training Program; PCP Internal Medicine
DX: S39.012A Strain of muscle, fascia and tendon of lower back, initial encounter (principal); X50.0XXA Overexertion from strenuous movement or load, initial encounter; M47.816 Spondylosis without myelopathy or radiculopathy, lumbar region; Y93.9 Activity, unspecified; Y92.9 Unspecified place or not applicable; Y99.9 Unspecified external cause status
CPT/HCPCS: 36415; 74176; 80053; 81003; 81025; 85025; 96374; 96375; 99284; J1885; J2405

== ENCOUNTER 2024-07-21 03:18 | Emergency (ER) | payer OTHER, SELFPAY ==
[2024-07-21 03:22] VITALS: BP 107/71; BP 138/84; PULSE 81; PULSE 84; RESP 17; TEMP 37.2; O2SAT 99; BMI 27.3
--- NOTE | 2024-07-21 03:32 | PC.NURSE ---
pt maria fernanda reporting sudden onset of anxiety, pt reports she takes ativan but has not been able to take it because it is . pt also reporting onset of a headache at this time. pt denies si/hi. at bedside.
--- NOTE | 2024-07-21 03:41 | ED.ANXIETY ---
HPI - Anxiety General Chief Complaint: Anxiety Stated Complaint: anxiety attack Time Seen by Provider: 07/21/24 03:26 Source: patient and EMS Mode of arrival: EMS Limitations: no limitations History of Present Illness ED Provider: BRENDA HPI narrative: 53 yo female with PMH of GERD, arthritis, anxiety, depression who notes she drank 5 beers tonight and was crying a lot. She notes she gets sad around the holidays because her parents are . She then notes a worsening gradual onset headache L temporal region not on thinners, no fevers, no head trauma. Started when she woke up. Patient states she has no SI. She has ativan refills needs to call her doctor didn't take her home dose MD complaint: anxiety and other Onset (ago): day(s) (3) Symptoms: other Severity: moderate Quality: constant Place: home History of similar episodes: Yes Provoking factors: emotional stress Relieving factors: nothing Exacerbating factors: thinking about event Associated symptoms: headaches Related Data Home Medications ?Medication ?Instructions ?Recorded ?Confirmed omeprazole 20 mg capsule,delayed 1 cap PO DAILY 01/12/22 04/20/23 release sertraline 50 mg tablet 1 tab PO DAILY 01/12/22 04/20/23 fluticasone propionate 50 1 spray intranasal DAILY 04/20/23 04/20/23 mcg/actuation nasal spray,suspension lorazepam 1 mg tablet 1 mg PO BEDTIME 04/20/23 04/20/23 ibuprofen 600 mg tablet 600 mg PO Q6H 05/23/24 venlafaxine 75 mg capsule,extended 75 mg PO QAM 05/23/24 release 24 hr Previous Rx's ?Medication ?Instructions ?Recorded cyclobenzaprine 10 mg tablet 10 mg PO TID PRN muscle spasm #15 06/20/24 tabs meloxicam 15 mg tablet 15 mg PO DAILY #7 tabs 06/20/24 tizanidine 6 mg capsule 6 mg PO Q8H PRN muscle spasticity 06/20/24 5 days #15 caps Allergies Allergy/AdvReac Type Severity Reaction Status Date / Time No Known Allergies Allergy Verified 07/21/24 03:26 Review of Systems Review of Systems: Constitutional : No Fever, No Chills, No Fatigue ENT/Mouth : No sore throat, No Rhinorrhea Eyes: No Eye Pain, No Swelling, No Redness Cardiovascular : No Chest Pain, No SOB, No Dyspnea on Exertion Respiratory : No Cough, No Sputum Gastrointestinal : No Nausea, No Vomiting, No Diarrhea, No abdominal Pain Genitourinary : No Dysuria, No Urinary Frequency, No Hematuria, Musculoskeletal : No joint pain, No Myalgias, No Joint Swelling Skin : No Skin Lesions, No rash Neuro : No Weakness, No Numbness, No Dizziness, positive Headache Psych : pos Anxiety/Panic, pos Depression, no SI Heme/Lymph: No Bruising, No Bleeding,No Lymphadenopathy Endocrine : No Polyuria, No Polydipsia All other systems reviewed and are negative [facility] Past Medical History Attestation statement: The following information was validated with the patient. Source: old records reviewed Medical History Renal calculi GERD (gastroesophageal reflux disease) Anxiety Depression ETOH abuse Surgical History Hx of straightening of nasal septum Social History Social History Alcohol intake: current Alcohol intake frequency: 3 or more drinks per day Alcohol type: beer Patient Tobacco Use Status: Current everyday Tobacco user Smoked in Last 30 Days: Yes Use of substances other than those prescribed or required for medical reasons: No Advance Directives: No Advance Directives Information Provided: Yes Do you have a plan to hurt others: No Plan Patient : No Current occupational status: disabled Current occupation: rt knee Physical Exam Vital Signs: Vital Signs: Last Vital Signs Temp 98.9 F 07/21/24 03:22 Pulse 84 07/21/24 03:22 Resp 17 07/21/24 03:22 BP 107/71 07/21/24 03:22 Pulse Ox 99 07/21/24 03:22 O2 Del Method Room Air 07/21/24 03:22 BMI result Body Mass Index 27.3 Appearance: Alert. Oriented X3. No acute distress. tearful Eyes: Pupils equal, round and reactive to light. Bloodshot eyes ENT: Pharynx normal. atraumatic, L temporal area no engorfement or visible temporal artery noo mass felt it is not over the temporal artery no ttp Neck: Normal inspection. Neck supple. CVS: Normal heart rate and rhythm. Pulses normal. Respiratory: No respiratory distress. Breath sounds normal. Abdomen: Soft and non-tender. Skin: Skin warm and dry. Normal skin color. . Extremities: No lower extremity edema. Neuro: Oriented X 3. No motor deficit. No sensory deficit. Course Course Course Narrative: ESR negative Medications Administered Discontinued Medications Generic Name Dose Route Start Last Admin Trade Name Mark PRN Reason Stop Dose Admin Acetaminophen 975 mg 07/21/24 03:38 07/21/24 03:45 Acetaminophen 325 Mg Tablet PO 07/21/24 03:39 975 mg ONCE ONE Administration Lorazepam 1 mg 07/21/24 03:38 07/21/24 03:45 Lorazepam 1 Mg Tablet PO 07/21/24 03:39 1 mg ONCE ONE Administration Medical Decision Making Medical Decision Making MDM Narrative: 53 yo female with PMH of GERD, arthritis, anxiety, depression who reports she is anxious and did not take her medications - no SI related to lack of family around the holidays. She also reports L sided mild headache gradual onset, at rest, normal neuro exam, no fevers doubt SAH or [employer] infection - will obtain basic labs and ESR given pain in temporal area but clinically the artery is not engorged enlarged or ttp. PO medications Differential Diagnosis Differential Diagnoses: The differential diagnosis associated with the presentation includes ETOH abuse, anxiety, tension headache Lab Data [facility] Lab Attestation statement: I reviewed the patient's lab results. 07/21/24 03:50 07/21/24 03:50 Labs: Lab Results 07/21/24 Range/Units 03:50 WBC 9.4 (4.8-10.8) X10*3/uL RBC 4.16 L (4.20-5.50) X10*6/uL Hgb 13.7 (12.0-16.0) g/dl Hct 39.6 (37.0-47.0) % MCV 95.2 (80.0-98.0) fL MCH 32.9 (27.0-33.0) pg MCHC 34.6 (31.0-35.0) g/dl RDW 13.2 (11.0-16.0) % Plt Count 238 (160-400) X10*3/uL MPV 9.5 (9.4-12.3) fL Immature Gran % (Auto) 0.2 (0.0-0.4) % Neut % (Auto) 47.1 (45-73) % Lymph % (Auto) 44.4 H (20-40) % [place] % (Auto) 6.3 (2-11) % Eos % (Auto) 1.5 (0-4) % Baso % (Auto) 0.5 (0-2) % Lymph # (Auto) 4.2 (1.2-4.9) X10*3/uL [place] # (Auto) 0.6 (0.1-1.2) X10*3/uL Eos # (Auto) 0.1 (0.0-0.4) X10*3/uL Baso # (Auto) 0.1 (0.0-0.2) X10*3/uL Abs Immat Gran (auto) 0.02 (0.00-0.03) X10*3/uL Absolute Neuts (auto) 4.4 (2.0-8.3) x10*3/uL Absolute Nucleated RBC 0.000 (0.0-0.012) X10*3/uL Nucleated RBC % (auto) 0.0 (0.0-0.2) /100WBC ESR 4 (0-20) MM/HR Sodium 136 (135-145) mmol/L Potassium 3.6 (3.3-5.1) mmol/L Chloride 104 (96-108) mmol/L Carbon Dioxide 20 L (22-29) mmol/L Anion Gap 16 (12-20) BUN 9 (9-16) mg/dL Creatinine 0.73 (0.5-1.4) mg/dL Estim Creat Clear Calc 93.2 Estimated GFR > 60 Random Glucose 90 (60-115) mg/dL Calcium 8.6 D (8.4-10.2) mg/dL Independent Historian Clinical information obtained from an independent historian. History obtained from or confirmed by: EMS External Record Review External record reviewed: Inpatient record and Outpatient record Discharge Plan Discharge Clinical Impression: Acute anxiety, Acute tension headache Patient Disposition: Home, Self-Care Instructions: Acute Headache (DC), Anxiety (ED) Additional Instructions: return for any worsening symptoms or concerns please follow up with your doctor this week given the headache ESR is negative (inflammator marker) if headache persists please follow up Prescriptions: No Action omeprazole 20 mg capsule,delayed release(DR/EC) 1 cap PO DAILY sertraline 50 mg tablet 1 tab PO DAILY venlafaxine 75 mg capsule,extended release 24hr 75 mg PO QAM ibuprofen 600 mg tablet 600 mg PO Q6H meloxicam 15 mg tablet 15 mg PO DAILY Qty: 7 0RF tizanidine 6 mg capsule 6 mg PO Q8H PRN (Reason: muscle spasticity) 5 Days Qty: 15 0RF cyclobenzaprine 10 mg tablet 10 mg PO TID PRN (Reason: muscle spasm) Qty: 15 0RF lorazepam 1 mg tablet 1 mg PO BEDTIME fluticasone propionate 50 mcg/actuation spray,suspension 1 spray intranasal DAILY Print Language: [place] Islander
[2024-07-21] MEDS: Acetaminophen 325 MG TABLET 975 MG PO (03:45)
[2024-07-21] MEDS: LORazepam 1 MG TABLET PO (03:45)
[2024-07-21 03:56] LABS: Basophils Absolute Auto 0.1 X10*3/uL (0.0-0.2); Basophils Percent Auto 0.5 % (0-2); Eosinophils Absolute Auto 0.1 X10*3/uL (0.0-0.4); Eosinophils Percent Auto 1.5 % (0-4); Hematocrit 39.6 % (37.0-47.0); Hemoglobin 13.7 g/dl (12.0-16.0); Imm Gran Abs Auto 0.02 X10*3/uL (0.00-0.03); Imm Gran Pct Auto 0.2 % (0.0-0.4); Lymphocytes Absolute Auto 4.2 X10*3/uL (1.2-4.9); Lymphocytes Percent Auto 44.4 % (20-40); MANUAL DIFF FLAG NO; Mean Corpuscular HGB Conc 34.6 g/dl (31.0-35.0); Mean Corpuscular Hemoglobin 32.9 pg (27.0-33.0); Mean Corpuscular Volume 95.2 fL (80.0-98.0); Mean Platelet Volume 9.5 fL (9.4-12.3); Monocytes Absolute Auto 0.6 X10*3/uL (0.1-1.2); Monocytes Percent Auto 6.3 % (2-11); Neutrophils Absolute Auto 4.4 x10*3/uL (2.0-8.3); Neutrophils Percent Auto 47.1 % (45-73); Platelet Count 238 X10*3/uL (160-400); Red Blood Count 4.16 X10*6/uL (4.20-5.50); Red Cell Distribution Width 13.2 % (11.0-16.0); White Blood Count 9.4 X10*3/uL (4.8-10.8)
[2024-07-21 04:10] LABS: Anion Gap 16 (12-20); Blood Urea Nitrogen 9 mg/dL (9-16); Calcium 8.6 mg/dL (8.4-10.2); Carbon Dioxide 20 mmol/L (22-29); Chloride 104 mmol/L (96-108); Creatinine Clr Calc Pharmacy 93.2; Estimated Glomerular Filt Rate > 60; Glucose Random 90 mg/dL (60-115); Potassium 3.6 mmol/L (3.3-5.1); Sodium 136 mmol/L (135-145)
[2024-07-21 04:28] LABS: Erythrocyte Sedimentation Rate 4 MM/HR (0-20)
[2024-07-21 06:30] VITALS: BP 95/60; PULSE 78; RESP 20; TEMP 36.6; O2SAT 98
--- NOTE | 2024-07-21 06:32 | PC.NURSE ---
pt awake and ambulatory with steady gait around ed, pt denies pain.
--- NOTE | 2024-07-21 08:58 | PC.NURSE ---
patient continues to sleep in bed, multiple attempts to have patient call for ride home patient continues to sleep at this time w/ even and unlabored respirations
[2024-07-21 12:16] VITALS: BP 107/66; PULSE 71; RESP 14; TEMP -13.7; TEMP 7.4; O2SAT 98
--- NOTE | 2024-07-21 12:39 | PC.NURSE ---
patient awake, ate crackers/drank hong garth. discharged to the waiting room to find ride home
[2024-07-21 12:40] VITALS: BP 107/66; PULSE 71; RESP 14; TEMP 36.3; O2SAT 98
== END 2024-07-21 12:41 | disposition home or self-care (01) ==
PROVIDERS: Emergency Provider Emergency Medicine; PCP Internal Medicine
DX: F41.9 Anxiety disorder, unspecified (principal); G44.209 Tension-type headache, unspecified, not intractable; Z79.899 Other long term (current) drug therapy
CPT/HCPCS: 36415; 80048; 85025; 85652; 99283; 99284

== ENCOUNTER 2024-09-26 02:09 | Emergency (ER) | payer OTHER, SELFPAY ==
--- NOTE | ~2024-09-26 | CT_ITS ---
CLINICAL HISTORY: Left temporal headache, no hx of prior RICE CT head without contrast Comparison: None Findings: No intra-axial mass, midline shift, hydrocephalus, or acute hemorrhage. No significant atrophy-like change or white matter disease. There is no sinus or mastoid fluid. The orbits are unremarkable. No skull fracture. IMPRESSION: 1. No acute intracranial findings. This document has been electronically signed by: Eduar Matson MD on 09/26/2024 04:00:46
[2024-09-26 02:11] VITALS: BP 156/83; PULSE 86; RESP 17; TEMP 36.1; O2SAT 99; BMI 25.8
--- NOTE | 2024-09-26 02:33 | PC.NURSE ---
Pt is a 54 y/o female who presents to the ED from home for evaluation of throbbing pain on the left side of her head with photosensitivity. Similar episode last week that self-resolved without intervention before returning in the last three days. Currently complaint has been present since 09/18. Reports some sinus congestion with clear/white drainage from nose. Has some left ear pain associated with head pain, but otherwise no ear or throat pain. Denies neck pain and any numbness/tingling in extremities. Fever at home is unknown. Denies trauma and any recent travel. No known sick contacts. No history of migraines in the past.
--- NOTE | 2024-09-26 02:55 | ED_ITS ---
HPI - General Adult General Chief complaint: Headache Stated complaint: left side scientologist pain Time Seen by Provider: 09/26/24 02:55 History of Present Illness ED Provider: Adilia BULLARD narrative: The patient is a 54-year-old woman who says that 8 days ago on September 18 she developed a headache in the region of her left temporal area. The headache lasted a day or 2 and then subsided but then returned and has been waxing and waning during the last week. She says that the headache she is currently experiencing has been present for about 3 days. This is not been associated with the fever, sweats, chills. This has not been associated with any neck stiffness. She is somewhat photophobic and she feels that her vision is somewhat blurry. She has never had a headache syndrome like this before Related Data Home Medications ?Medication ?Instructions ?Recorded ?Confirmed omeprazole 20 mg capsule,delayed 1 cap PO DAILY 01/12/22 04/20/23 release sertraline 50 mg tablet 1 tab PO DAILY 01/12/22 04/20/23 fluticasone propionate 50 1 spray intranasal DAILY 04/20/23 04/20/23 mcg/actuation nasal spray,suspension lorazepam 1 mg tablet 1 mg PO BEDTIME 04/20/23 04/20/23 ibuprofen 600 mg tablet 600 mg PO Q6H 05/23/24 venlafaxine 75 mg capsule,extended 75 mg PO QAM 05/23/24 release 24 hr Previous Rx's ?Medication ?Instructions ?Recorded cyclobenzaprine 10 mg tablet 10 mg PO TID PRN muscle spasm #15 06/20/24 tabs meloxicam 15 mg tablet 15 mg PO DAILY #7 tabs 06/20/24 tizanidine 6 mg capsule 6 mg PO Q8H PRN muscle spasticity 06/20/24 5 days #15 caps Allergies Allergy/AdvReac Type Severity Reaction Status Date / Time No Known Allergies Allergy Verified 09/26/24 02:14 Review of Systems 2 Review of Systems: Yes all other systems are reviewed and are negative [facility] Past Medical History Medical History Renal calculi GERD (gastroesophageal reflux disease) Anxiety Depression ETOH abuse Surgical History Hx of straightening of nasal septum Social History Social History Alcohol intake: current Alcohol intake frequency: 3 or more drinks per day Alcohol type: beer Patient Tobacco Use Status: Current everyday Tobacco user Current occupational status: disabled Current occupation: rt knee Physical Exam ED Vital Signs: Vital Signs - 24 hr 09/26/24 02:11 Temperature 97.0 F Pulse Rate 86 Respiratory Rate 17 Blood Pressure 156/83 H Pulse Oximetry 99 Oxygen Delivery Method Room Air BMI result Body Mass Index 25.8 Const Other: The patient is a 54-year-old woman who was awake and alert. She looks anxious but not in acute distress and she does not seem toxic HENMT Other: The patient has some tenderness in the left temporal fossa. The face is otherwise unremarkable. Eyes General: appearance normal, both eyes and all related structures Alignment and Position: alignment normal Conjunctivae: conjunctivae normal Sclerae: sclerae normal Pupils: Equal, round and reactive pupils present EOM: EOMs intact bilaterally Neck Neck: Yes full ROM and Yes no lymphadenopathy Resp Effort & Inspection: normal respiratory effort Auscultation: clear to auscultation bilaterally Cardio Rate: regular rate Rhythm: regular rhythm Heart sounds: S1 normal heart sound present and S2 normal heart sound present GI Other: Abdomen is soft and nontender Skin Other: Skin is dry and unremarkable General skin exam: no rashes or lesions noted Neuro Other: The patient is awake and alert with a normal mental status. GCS is 15. Eye movements are intact. Pupillary exam is normal. Funduscopic exam is limited but seems normal. Face is symmetrical. Speech is clear. Normal strength and sensation in all 4 extremities. The patient is neurologically intact with a supple neck. Cranial nerves: Yes Equal, round and reactive pupils present Extrem Other: No peripheral edema Medications Administered Discontinued Medications Generic Name Dose Route Start Last Admin Trade Name Freq PRN Reason Stop Dose Admin Diphenhydramine HCl 25 mg 09/26/24 03:11 09/26/24 03:28 Diphenhydramine Hcl 50 Mg/Ml Vial IVPUSH 09/26/24 03:12 25 mg ONCE ONE Administration Sodium Chloride 1,000 mls @ 999 mls/hr 09/26/24 03:15 09/26/24 03:28 Ns IV 09/26/24 04:15 999 mls/hr .Q1H1M THEODORE Administration Ketorolac Tromethamine 10 mg 09/26/24 03:11 09/26/24 03:26 Ketorolac Tromethamine 15 Mg/Ml Vial IVPUSH 09/26/24 03:12 10 mg ONCE ONE Administration Metoclopramide HCl 10 mg 09/26/24 03:11 09/26/24 03:27 Metoclopramide Hcl 10 Mg/2 Ml Vial IVPUSH 09/26/24 03:12 10 mg ONCE ONE Administration Medical Decision Making Medical Decision Making [facility] Narrative: The patient is a 54-year-old woman who presents for evaluation of a headache. She does not have a history of headaches. She does not have a history of migraines. She is indicating that the pain is mostly in the region of the left temporal fossa. She has a negative head CT. She has normal ESR. She was treated for a possible migraine syndrome with ketorolac, metoclopramide, diphenhydramine, and IV fluids. She felt much better. Her symptoms resolved. I do not have any significant suspicion for an occult subarachnoid hemorrhage and I do not think the patient is likely to have giant cell arteritis with a normal sed rate. The patient felt better and I felt she was safe for discharge Lab Data 09/26/24 02:56 09/26/24 02:56 Labs: Lab Results 09/26/24 Range/Units 02:56 WBC 6.0 (4.8-10.8) X10*3/uL RBC 4.28 (4.20-5.50) X10*6/uL Hgb 14.0 (12.0-16.0) g/dl Hct 40.6 (37.0-47.0) % MCV 94.9 (80.0-98.0) fL MCH 32.7 (27.0-33.0) pg MCHC 34.5 (31.0-35.0) g/dl RDW 13.1 (11.0-16.0) % Plt Count 228 (160-400) X10*3/uL MPV 9.4 (9.4-12.3) fL Immature Gran % (Auto) 0.2 (0.0-0.4) % Neut % (Auto) 45.1 (45-73) % Lymph % (Auto) 45.2 H (20-40) % [place] % (Auto) 7.5 (2-11) % Eos % (Auto) 1.2 (0-4) % Baso % (Auto) 0.8 (0-2) % Lymph # (Auto) 2.7 (1.2-4.9) X10*3/uL [place] # (Auto) 0.5 (0.1-1.2) X10*3/uL Eos # (Auto) 0.1 (0.0-0.4) X10*3/uL Baso # (Auto) 0.1 (0.0-0.2) X10*3/uL Abs Immat Gran (auto) 0.01 (0.00-0.03) X10*3/uL Absolute Neuts (auto) 2.7 (2.0-8.3) x10*3/uL Absolute Nucleated RBC 0.000 (0.0-0.012) X10*3/uL Nucleated RBC % (auto) 0.0 (0.0-0.2) /100WBC ESR 3 (0-20) MM/HR Sodium 138 (135-145) mmol/L Potassium 3.7 (3.3-5.1) mmol/L Chloride 105 (96-108) mmol/L Carbon Dioxide 23 (22-29) mmol/L Anion Gap 14 (12-20) BUN 9 (9-16) mg/dL Creatinine 0.67 (0.5-1.4) mg/dL Estim Creat Clear Calc 97.8 Estimated GFR > 60 Random Glucose 83 (60-115) mg/dL Calcium 8.9 (8.4-10.2) mg/dL Total Bilirubin 0.2 (0.0-1.0) mg/dL AST 66 H (5-31) U/L ALT 59 H (0-31) U/L Alkaline Phosphatase 74 (39-117) U/L Total Protein 7.3 (6.5-8.0) g/dL Albumin 4.0 (3.5-5.0) g/dL Influenza Type A (PCR) NEGATIVE (Negative) Influenza Type B (PCR) NEGATIVE (Negative) RSV RNA Qual (PCR) NEGATIVE (Negative) SARS-CoV-2 RNA (RT-PCR) NEGATIVE (Negative) Discharge Plan Discharge Clinical Impression: Headache Patient Disposition: Home, Self-Care Additional Instructions: Your testing today is reassuring. It is possible your headache could be some kind of a migraine type of headache. Please rest and take it easy today. Please plan on following up with your regular doctor to discuss this headache further. Return to the emergency room if you are significantly worse. Prescriptions: No Action omeprazole 20 mg capsule,delayed release(DR/EC) 1 cap PO DAILY sertraline 50 mg tablet 1 tab PO DAILY venlafaxine 75 mg capsule,extended release 24hr 75 mg PO QAM ibuprofen 600 mg tablet 600 mg PO Q6H meloxicam 15 mg tablet 15 mg PO DAILY Qty: 7 0RF tizanidine 6 mg capsule 6 mg PO Q8H PRN (Reason: muscle spasticity) 5 Days Qty: 15 0RF cyclobenzaprine 10 mg tablet 10 mg PO TID PRN (Reason: muscle spasm) Qty: 15 0RF lorazepam 1 mg tablet 1 mg PO BEDTIME fluticasone propionate 50 mcg/actuation spray,suspension 1 spray intranasal DAILY Referrals: Shawnee Delgado MD [Primary Care Provider] - (Left temporal headache) Interventions: ED Discharge Assessment Last Done: 09/26/24 05:20 Discharge Date/Time: 09/26/24 05:23 Print Language: Divehi
[2024-09-26 03:00] LABS: Basophils Absolute Auto 0.1 X10*3/uL (0.0-0.2); Basophils Percent Auto 0.8 % (0-2); Eosinophils Absolute Auto 0.1 X10*3/uL (0.0-0.4); Eosinophils Percent Auto 1.2 % (0-4); Hematocrit 40.6 % (37.0-47.0); Imm Gran Abs Auto 0.01 X10*3/uL (0.00-0.03); Imm Gran Pct Auto 0.2 % (0.0-0.4); Lymphocytes Absolute Auto 2.7 X10*3/uL (1.2-4.9); Lymphocytes Percent Auto 45.2 % (20-40); MANUAL DIFF FLAG NO; Mean Corpuscular HGB Conc 34.5 g/dl (31.0-35.0); Mean Corpuscular Hemoglobin 32.7 pg (27.0-33.0); Mean Corpuscular Volume 94.9 fL (80.0-98.0); Mean Platelet Volume 9.4 fL (9.4-12.3); Monocytes Absolute Auto 0.5 X10*3/uL (0.1-1.2); Monocytes Percent Auto 7.5 % (2-11); Neutrophils Absolute Auto 2.7 x10*3/uL (2.0-8.3); Neutrophils Percent Auto 45.1 % (45-73); Platelet Count 228 X10*3/uL (160-400); Red Blood Count 4.28 X10*6/uL (4.20-5.50); Red Cell Distribution Width 13.1 % (11.0-16.0)
[2024-09-26 03:20] LABS: Alanine Aminotransferase 59 U/L (0-31); Anion Gap 14 (12-20); Aspartate Amino Transferase 66 U/L (5-31); Bilirubin Total 0.2 mg/dL (0.0-1.0); Blood Urea Nitrogen 9 mg/dL (9-16); Calcium 8.9 mg/dL (8.4-10.2); Carbon Dioxide 23 mmol/L (22-29); Chloride 105 mmol/L (96-108); Creatinine Clr Calc Pharmacy 97.8; Estimated Glomerular Filt Rate > 60; Glucose Random 83 mg/dL (60-115); Potassium 3.7 mmol/L (3.3-5.1); Sodium 138 mmol/L (135-145); Total Protein 7.3 g/dL (6.5-8.0)
[2024-09-26] MEDS: Ketorolac Tromethamine 15 MG/ML VIAL 10 MG IVPUSH (03:26)
[2024-09-26] MEDS: Metoclopramide HCl 10 MG/2 ML VIAL IVPUSH (03:27)
[2024-09-26] MEDS: diphenhydrAMINE HCL 50 MG/ML VIAL 25 MG IVPUSH (03:28)
[2024-09-26] MEDS: 0.9 % Sodium Chloride 1,000 ML 999 ML IV (03:28)
[2024-09-26 03:38] LABS: Influenza A PCR NEGATIVE (Negative); Influenza B PCR NEGATIVE (Negative); Resp Syncy Virus RNA Qual PCR NEGATIVE (Negative); SARS COV2 PCR INHOUSE NEGATIVE (Negative)
[2024-09-26 03:54] LABS: Erythrocyte Sedimentation Rate 3 MM/HR (0-20)
[2024-09-26 04:09] LABS: Alkaline Phosphatase 74 U/L (39-117)
[2024-09-26 05:20] VITALS: BP 123/81; PULSE 70; RESP 16; TEMP 36.7; O2SAT 98
== END 2024-09-26 05:23 | disposition home or self-care (01) ==
PROVIDERS: Emergency Provider Emergency Medicine; PCP Internal Medicine
DX: R51.9 Headache, unspecified (principal); Z20.822 Contact with and (suspected) exposure to COVID-19; Z79.899 Other long term (current) drug therapy; Z03.818 Encounter for observation for suspected exposure to other biological agents ruled out
CPT/HCPCS: 0241U; 70450; 80053; 85025; 85652; 96374; 96375; 99284; J1200; J1885; J2765

== ENCOUNTER → 2024-09-26 03:08 | Outpatient (BNV) | payer OTHER, SELFPAY | PROVIDERS: Emergency Provider Emergency Medicine; PCP Internal Medicine; Visit Provider Radiology Diagnostic Radiology | DX: R51.9 Headache, unspecified (principal) | CPT/HCPCS: 70450 ==

== ENCOUNTER 2024-10-02 04:43 | Emergency (ER) | payer OTHER, SELFPAY ==
[2024-10-02 04:49] VITALS: BP 164/100; PULSE 81; RESP 18; TEMP 36.6; O2SAT 100; BMI 25.8
--- OUTSIDE RECORDS SUMMARY | 2024-10-02 05:02 | XMS_ITS | Clinical Summary ---
Author Organization [employer] [facility] Address [address] [place] [address] Care Team Providers Care Charge Operator Name Role Phone Unavailable Primary Care Provider Unavailabl e Allergies No known active allergies Medications venlafaxine XR (Effexor XR) 75 MG 24 hr capsule TAKE 1 CAPSULE BY MOUTH EVERY DAY IN THE MORNING 2 Active omeprazole (PriLOSEC) [address] capsule Take 20 mg by mouth in the morning. 2 Active amoxicillin-clavu lanate (Augmentin) 500-125 MG tabletIndications :Dental pulp degeneration Take 1 tablet (500 mg) by mouth 2 times daily. 14 tablet 3 Active chlorhexidine (Peridex) 0.12 % solutionIndicatio ns:Dental caries extending into pulp SWISH AND SPIT 15MLS BY MOUTH IN THE MORNING/NOON /BEDTIME NEEDED FOR UP TO 5 DAYS 473 mL 4 Active Social History Tobacco Use Types Packs/Day Years Used Date Smoking Tobacco: Former Cigarettes Smokeless Tobacco: Never Tobacco Cessation:Counseling Given: Not Answered Alcohol Use Standard Drinks/Week Comments Yes 7 (1 standard drink = 0.6 oz pur e alcohol) Comments Unknown Sex and Gender Information Value Date Recorded Sex Assigned at Female 09/09/2022 3:59 PM EST Legal Sex Female 3:58 PM EST Gender Identity Female 09/09/2022 3:59 PM EST Sexual Orientation Don't know 10/25/2022 8: 47 AM EST Last Filed Vital Signs Vital Sign Reading Time Taken Comments Blood Pressure 130/82 10/25/2022 9:48 AM EST Pulse - - Temperature - - Respiratory Rate - - Oxygen Saturation - - Inhaled Oxygen Concentration - - Weight - - Height - - Body Mass Index - - Plan of Treatment Health Maintenance Due Date Last Done Comments CT Colonography 1970 Colonoscopy 1970 Colorectal Cancer Screening 1970 Dental Oral Exam 1970 Dental Prophylaxis 1970 Dental X-Ray: Bitewings 1970 Dental X-Ray: Full Mouth 1970 Depression Screening 1970 FIT DNA/Cologuard 1970 FIT 1970 FOBT 1970 HIV Screening 1970 SDOH Screening 1970 Sigmoidoscopy 1970 Alcohol/Substance Use Screening 1982 Hepatitis C Screening 1988 Hepatitis B Vaccines (1 of 3 - 19+ 3-dose series) 1989 Pap Smear 1991 Cervical Cancer Screening 2000 HPV/Cotest 2000 Mammogram 2010 Pneumococcal Vaccine: 50+ Ye ars (1 of 1 - PCV) 2020 Zoster Vaccines (1 of 2) 2020 DTaP/Tdap/Td Vaccines (2 - T d or Tdap) 10/29/2020 10/29/2010 Tobacco Screening 11/09/2023 11/08/2022 COVID-19 Vaccine (1 - 2023-2 5 season) 2024 Influenza Vaccine (#1) 2024 10/29/2010 RSV Patients and Pa tients Aged 60 years or older (1 - 1-dose 75+ series) 2045 HIB Vaccines Aged Out No longer eligi ble based on patient's age to complete this topic HPV Vaccines Aged Out No longer eligi ble based on patient's age to complete this topic Hepatitis A Vaccines Aged Out No long er eligible based on patient's age to complete this topic IPV Vaccines Aged Out No longer eligi ble based on patient's age to complete this topic Meningococcal Vaccine Aged Out No [place] eligible based on patient's age to complete this topic Pneumococcal Vaccine: Pediat rics (0 to 5 Years) and At-Risk Patients (6 to 49) Years) Aged Out No longer elig ible based on patient's age to complete this topic RSV under 20 months Aged Out No longe r eligible based on patient's age to complete this topic Rotavirus Vaccines Aged Out No longer eligible based on patient's age to complete this topic Insurance [facility] MEDICAID STAND ADULT
--- OUTSIDE RECORDS SUMMARY | 2024-10-02 05:02 | XMS_ITS | Encounter Summary ---
Author Organization [employer] Address [address] [place] [address] Care Team Providers Care Compounder Helper Name Role Phone Unavailable Primary Care Provider Unavailabl e Reason for Visit * Reason Comments Med Refill Encounter Details Date Type Department Care Team (Late st Contact Info) Description 09/25/2023 Refill [facility] [address], [place] [phone] Lukas Duran DMD [address], [place] [phone] Dental caries extending into pulp Social History Tobacco Use Types Packs/Day Years Used Date Smoking Tobacco: Former Cigarettes Smokeless Tobacco: Never Alcohol Use Standard Drinks/Week Comments Yes 7 (1 standard drink = 0.6 oz pur e alcohol) Comments Unknown Sex and Gender Information Value Date Recorded Sex Assigned at Female 09/09/2022 3:59 PM EST Legal Sex Female 3:58 PM EST Gender Identity Female 09/09/2022 3:59 PM EST Sexual Orientation Don't know 10/25/2022 8: 47 AM EST documented as of this encounter Miscellaneous Notes * Telephone Encounter - Lukas Duran DMD - 09/26/2023 8:01 AM EST Approving, but needs appt for additional refills. documented in this encounter Plan of Treatment Not on file documented as of this encounter Visit Diagnoses Diagnosis Dental caries extending into pulp documented in this encounter
[2024-10-02 08:40] VITALS: BP 191/89; PULSE 78; RESP 16; TEMP 37.3; O2SAT 99
[2024-10-02] MEDS: Ketorolac Tromethamine 30 MG/ML VIAL IM (09:09)
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
[2024-10-02] MEDS: Morphine Sulfate Immed Release 15 MG TABLET PO (09:53)
[2024-10-02 10:00] VITALS: BP 170/88; PULSE 78; RESP 18; TEMP 37; O2SAT 98
[2024-10-02 10:01] VITALS: BP 170/88; PULSE 78; RESP 18; TEMP 37; O2SAT 98
== END 2024-10-02 10:02 | disposition home or self-care (01) ==
PROVIDERS: Emergency Provider Emergency Medicine; PCP Internal Medicine
DX: K08.89 Other specified disorders of teeth and supporting structures (principal); Z79.899 Other long term (current) drug therapy
CPT/HCPCS: 96372; 99283; 99284; J1885

== ENCOUNTER 2024-10-02 21:07 | Emergency (ER) | payer OTHER, SELFPAY ==
[2024-10-02 21:17] VITALS: BP 180/98; PULSE 89; RESP 16; TEMP 36.4; O2SAT 98; BMI 25.2
[2024-10-02 21:53] LABS: MANUAL DIFF FLAG NO
[2024-10-02 21:54] LABS: Basophils Percent Auto 0.4 % (0-2); Eosinophils Absolute Auto 0.1 X10*3/uL (0.0-0.4); Eosinophils Percent Auto 0.7 % (0-4); Hemoglobin 14.6 g/dl (12.0-16.0); Imm Gran Abs Auto 0.02 X10*3/uL (0.00-0.03); Imm Gran Pct Auto 0.3 % (0.0-0.4); Lymphocytes Absolute Auto 1.2 X10*3/uL (1.2-4.9); Lymphocytes Percent Auto 16.1 % (20-40); Mean Corpuscular HGB Conc 34.8 g/dl (31.0-35.0); Mean Platelet Volume 9.4 fL (9.4-12.3); Monocytes Absolute Auto 0.5 X10*3/uL (0.1-1.2); Monocytes Percent Auto 6.9 % (2-11); Neutrophils Absolute Auto 5.8 x10*3/uL (2.0-8.3); Neutrophils Percent Auto 75.6 % (45-73); Platelet Count 221 X10*3/uL (160-400); Red Blood Count 4.42 X10*6/uL (4.20-5.50); Red Cell Distribution Width 12.9 % (11.0-16.0); White Blood Count 7.6 X10*3/uL (4.8-10.8)
[2024-10-02 22:10] LABS: Anion Gap 17 (12-20); Blood Urea Nitrogen 10 mg/dL (9-16); Calcium 8.9 mg/dL (8.4-10.2); Carbon Dioxide 26 mmol/L (22-29); Chloride 103 mmol/L (96-108); Creatinine Clr Calc Pharmacy 79.1; Estimated Glomerular Filt Rate > 60; Glucose Random 98 mg/dL (60-115); Potassium 3.9 mmol/L (3.3-5.1); Sodium 142 mmol/L (135-145)
[2024-10-03 00:45] VITALS: BP 190/95; PULSE 74; RESP 18; TEMP 36.8; O2SAT 100
[2024-10-03 02:58] VITALS: BP 155/94; PULSE 85; RESP 20; TEMP 38; O2SAT 98
[2024-10-03] MEDS: Ibuprofen 600 MG TABLET PO (03:38)
--- NOTE | 2024-10-03 04:03 | ED_ITS ---
HPI - Dental/Oral General Chief complaint: Dental/Oral Stated complaint: swollen mouth was seen yest Time Seen by Provider: 10/03/24 03:57 Source: patient Mode of arrival: ambulatory Limitations: no limitations History of Present Illness ED Provider: Dr. Kassandra Stinson HPI Narrative: Patient comes to the emergency room complaining of upper lip swelling. Patient states that the swelling started after taking the 1st dose of amoxicillin which she was prescribed 2 days ago for a dental infection. Patient denies any trouble swallowing, denies any shortness of breath or wheezing. Related Data Home Medications ?Medication ?Instructions ?Recorded ?Confirmed omeprazole 20 mg capsule,delayed 1 cap PO DAILY 01/12/22 04/20/23 release sertraline 50 mg tablet 1 tab PO DAILY 01/12/22 04/20/23 fluticasone propionate 50 1 spray intranasal DAILY 04/20/23 04/20/23 mcg/actuation nasal spray,suspension lorazepam 1 mg tablet 1 mg PO BEDTIME 04/20/23 04/20/23 ibuprofen 600 mg tablet 600 mg PO Q6H 05/23/24 venlafaxine 75 mg capsule,extended 75 mg PO QAM 05/23/24 release 24 hr Previous Rx's ?Medication ?Instructions ?Recorded cyclobenzaprine 10 mg tablet 10 mg PO TID PRN muscle spasm #15 06/20/24 tabs meloxicam 15 mg tablet 15 mg PO DAILY #7 tabs 06/20/24 tizanidine 6 mg capsule 6 mg PO Q8H PRN muscle spasticity 06/20/24 5 days #15 caps acetaminophen 500 mg tablet 500 mg PO Q6H PRN fever or pain 10/02/24 (Tylenol Extra Strength) #14 tabs amoxicillin 500 mg capsule 500 mg PO TID 7 days #21 caps 10/02/24 morphine 15 mg immediate release 15 mg PO Q6H PRN pain (scale score 10/02/24 tablet 7-10) 3 days #5 tabs naproxen 500 mg tablet 500 mg PO BID PRN pain 10 days #20 10/02/24 tabs Lactobacillus rhamnosus GG 10 1 cap PO BID #30 caps 10/03/24 billion cell capsule (Culturelle) clindamycin HCl 150 mg capsule 150 mg PO TID 10 days #30 caps 10/03/24 Allergies Allergy/AdvReac Type Severity Reaction Status Date / Time amoxicillin Allergy Intermediate swelling Verified 10/03/24 04:04 amoxicill Allergy Intermediate Swelling Uncoded 10/03/24 04:04 Review of Systems 2 Review of Systems: Constitutional : No Weight loss, No Fever, No Chills, No Night Sweats, No Fatigue, No Malaise ENT/Mouth : Complaining of dental pain, complaining of upper lip swelling after taking amoxicillin, No Hearing loss, No Ear Pain, No Nasal Congestion, No Sinus Pain, No Hoarseness, No sore throat, No Rhinorrhea, No Swallowing Difficulty Eyes: No Eye Pain, No Swelling, No Redness, No Foreign Body, No Discharge, No Vision Changes Cardiovascular : No Chest Pain, No SOB, No Dyspnea on Exertion, No Orthopnea, No Edema, No Palpitations Respiratory : No Cough, No Sputum, No Wheezing, No Smoke Exposure, No Dyspnea Gastrointestinal : No Nausea, No Vomiting, No Diarrhea, No Constipation, No abdominal Pain, No Hematochezia, No Melena Genitourinary : no irregular bleeding, No Dysuria, No Urinary Frequency, No Hematuria, No Urinary Incontinence, No Urgency, No Flank Pain, No Urinary Flow Changes, No Hesitancy Musculoskeletal : No joint pain, No Myalgias, No Joint Swelling Skin : No Skin Lesions, No rash Neuro : No Weakness, No Numbness, No Paresthesias, No Loss of Consciousness, No Dizziness, No Headache Psych : No Anxiety/Panic, No Depression, No SI/HI/AH/VH, No Social Issues, Heme/Lymph: No Bruising, No Bleeding,No Lymphadenopathy Endocrine : No Polyuria, No Polydipsia, No Temperature Intolerance [facility] Past Medical History Medical History Renal calculi GERD (gastroesophageal reflux disease) Anxiety Depression ETOH abuse Surgical History Hx of straightening of nasal septum Social History Social History Alcohol intake: current Alcohol intake frequency: holidays/special occasions only Alcohol type: wine and hard liquor Patient Tobacco Use Status: Current everyday Tobacco user Smoked in Last 30 Days: Yes Use of substances other than those prescribed or required for medical reasons: No Advance Directives: No Advance Directives Information Provided: No Current occupational status: disabled Current occupation: rt knee Physical Exam 2 Vital Signs: Vital Signs: Last Vital Signs Temp 100.4 F 10/03/24 02:58 Pulse 85 10/03/24 02:58 Resp 20 10/03/24 02:58 BP 155/94 H 10/03/24 02:58 Pulse Ox 98 10/03/24 02:58 O2 Del Method Room Air 10/03/24 02:58 BMI result Body Mass Index 25.2 Const: Other: Constitutional : No Weight loss, No Fever, No Chills, No Night Sweats, No Fatigue, No Malaise ENT/Mouth : Patient's upper lip is swollen, No Hearing loss, No Ear Pain, No Nasal Congestion, No Sinus Pain, No Hoarseness, No sore throat, No Rhinorrhea, No Swallowing Difficulty Eyes: No Eye Pain, No Swelling, No Redness, No Foreign Body, No Discharge, No Vision Changes Cardiovascular : No Chest Pain, No SOB, No Dyspnea on Exertion, No Orthopnea, No Edema, No Palpitations Respiratory : No Cough, No Sputum, No Wheezing, No Smoke Exposure, No Dyspnea Gastrointestinal : No Nausea, No Vomiting, No Diarrhea, No Constipation, No abdominal Pain, No Hematochezia, No Melena Genitourinary : no irregular bleeding, No Dysuria, No Urinary Frequency, No Hematuria, No Urinary Incontinence, No Urgency, No Flank Pain, No Urinary Flow Changes, No Hesitancy Musculoskeletal : No joint pain, No Myalgias, No Joint Swelling Skin : No Skin Lesions, No rash Neuro : No Weakness, No Numbness, No Paresthesias, No Loss of Consciousness, No Dizziness, No Headache Psych : No Anxiety/Panic, No Depression, No SI/HI/AH/VH, No Social Issues, Heme/Lymph: No Bruising, No Bleeding,No Lymphadenopathy Endocrine : No Polyuria, No Polydipsia, No Temperature Intolerance Course Course Course Narrative: Patient being giving IV Solu-Medrol, Pepcid and Benadryl. Patient instructed to not take penicillins ever again. Patient's antibiotics will be changed to clindamycin. Patient needs to have close follow-up with her dentist Medications Administered Discontinued Medications Generic Name Dose Route Start Last Admin Trade Name Freq PRN Reason Stop Dose Admin Diphenhydramine HCl 50 mg 10/03/24 04:02 10/03/24 04:16 Diphenhydramine Hcl 50 Mg/Ml Vial IVPUSH 10/03/24 04:03 50 mg ONCE ONE Administration Famotidine 20 mg 10/03/24 04:02 10/03/24 04:16 Famotidine/Pf 20 Mg/2 Ml Vial IVPUSH 10/03/24 04:03 20 mg ONCE ONE Administration Ibuprofen 600 mg 10/03/24 03:05 10/03/24 03:38 Ibuprofen 600 Mg Tablet PO 10/03/24 03:06 600 mg ONCE ONE Administration Methylprednisolone Sodium Succinate 125 mg 10/03/24 04:02 10/03/24 04:16 Methylprednisolone Sod Succ 125 Mg/2 Ml Vial IVPUSH 10/03/24 04:03 125 mg ONCE ONE Administration Medical Decision Making Medical Decision Making [facility] Narrative: Patient's lip and facial swelling decreased, very residual swelling. Patient's antibiotics were switched to p.o. clindamycin. My interpretation of labs, no significant abnormality and chemistry Differential Diagnosis Differential Diagnoses: The differential diagnosis associated with the presentation includes (Allergic reaction, anaphylaxis, angioedema) Lab Data [facility] Lab Attestation statement: I reviewed the patient's lab results. 10/02/24 21:47 10/02/24 21:47 Labs: Lab Results 10/02/24 Range/Units 21:47 WBC 7.6 (4.8-10.8) X10*3/uL RBC 4.42 (4.20-5.50) X10*6/uL Hgb 14.6 (12.0-16.0) g/dl Hct 42.0 (37.0-47.0) % MCV 95.0 (80.0-98.0) fL MCH 33.0 (27.0-33.0) pg MCHC 34.8 (31.0-35.0) g/dl RDW 12.9 (11.0-16.0) % Plt Count 221 (160-400) X10*3/uL MPV 9.4 (9.4-12.3) fL Immature Gran % (Auto) 0.3 (0.0-0.4) % Neut % (Auto) 75.6 H (45-73) % Lymph % (Auto) 16.1 L (20-40) % Hendricks % (Auto) 6.9 (2-11) % Eos % (Auto) 0.7 (0-4) % Baso % (Auto) 0.4 (0-2) % Lymph # (Auto) 1.2 (1.2-4.9) X10*3/uL Hendricks # (Auto) 0.5 (0.1-1.2) X10*3/uL Eos # (Auto) 0.1 (0.0-0.4) X10*3/uL Baso # (Auto) 0.0 (0.0-0.2) X10*3/uL Abs Immat Gran (auto) 0.02 (0.00-0.03) X10*3/uL Absolute Neuts (auto) 5.8 (2.0-8.3) x10*3/uL Absolute Nucleated RBC 0.000 (0.0-0.012) X10*3/uL Nucleated RBC % (auto) 0.0 (0.0-0.2) /100WBC Sodium 142 (135-145) mmol/L Potassium 3.9 (3.3-5.1) mmol/L Chloride 103 (96-108) mmol/L Carbon Dioxide 26 (22-29) mmol/L Anion Gap 17 (12-20) BUN 10 (9-16) mg/dL Creatinine 0.76 (0.5-1.4) mg/dL Estim Creat Clear Calc 79.1 Estimated GFR > 60 Random Glucose 98 (60-115) mg/dL Calcium 8.9 (8.4-10.2) mg/dL Critical Care Time Critical Care Time Critical Care Time: Yes Total Critical Care Time: 60 Attestation: I have personally provided critical care time. Time includes review of lab data, radiology results, discussion with consultants, and monitoring for potential decompensation. Intervention performed as documented. Discharge Plan Discharge Clinical Impression: Allergic drug reaction Patient Disposition: Home, Self-Care Instructions: Antibiotic Medication Allergy (ED) Additional Instructions: Please follow-up with your primary care physician tomorrow. If you have any worsening or new symptoms, please return to the emergency room or call 911 Prescriptions: New clindamycin HCl 150 mg capsule 150 mg PO TID 10 Days Qty: 30 0RF Culturelle 10 billion cell capsule 1 cap PO BID Qty: 30 0RF No Action omeprazole 20 mg capsule,delayed release(DR/EC) 1 cap PO DAILY sertraline 50 mg tablet 1 tab PO DAILY venlafaxine 75 mg capsule,extended release 24hr 75 mg PO QAM ibuprofen 600 mg tablet 600 mg PO Q6H meloxicam 15 mg tablet 15 mg PO DAILY Qty: 7 0RF tizanidine 6 mg capsule 6 mg PO Q8H PRN (Reason: muscle spasticity) 5 Days Qty: 15 0RF cyclobenzaprine 10 mg tablet 10 mg PO TID PRN (Reason: muscle spasm) Qty: 15 0RF lorazepam 1 mg tablet 1 mg PO BEDTIME fluticasone propionate 50 mcg/actuation spray,suspension 1 spray intranasal DAILY amoxicillin 500 mg capsule 500 mg PO TID 7 Days Qty: 21 0RF morphine 15 mg tablet 15 mg PO Q6H PRN (Reason: pain (scale score 7-10)) 3 Days Qty: 5 0RF Rx Instructions: Partial Fill upon patient request. acetaminophen [Tylenol Extra Strength] 500 mg tablet 500 mg PO Q6H PRN (Reason: fever or pain) Qty: 14 0RF naproxen 500 mg tablet 500 mg PO BID PRN (Reason: pain) 10 Days Qty: 20 0RF Print Language: Turkish
[2024-10-03] MEDS: methylPREDNISolone Sod Succ 125 MG/2 ML VIAL IVPUSH (04:16)
[2024-10-03] MEDS: Famotidine/PF 20 MG/2 ML VIAL IVPUSH (04:16)
[2024-10-03] MEDS: diphenhydrAMINE HCL 50 MG/ML VIAL IVPUSH (04:16)
[2024-10-03 06:00] VITALS: BP 115/62; PULSE 69; RESP 17; TEMP 36.9; O2SAT 98
[2024-10-03] MEDS: traMADoL HCL 50 MG TABLET PO (06:00)
[2024-10-03 06:07] VITALS: BP 115/62; PULSE 69; RESP 17; TEMP 36.9; O2SAT 98
== END 2024-10-03 06:09 | disposition home or self-care (01) ==
PROVIDERS: Emergency Provider Emergency Medicine; PCP Internal Medicine
DX: R22.0 Localized swelling, mass and lump, head (principal); T36.0X5A Adverse effect of penicillins, initial encounter; F17.210 Nicotine dependence, cigarettes, uncomplicated; Y92.9 Unspecified place or not applicable; Z79.899 Other long term (current) drug therapy
CPT/HCPCS: 36415; 80048; 85025; 96374; 96375; 99284; J1200; J2919

== ENCOUNTER 2024-10-22 02:40 | Emergency (ER) | payer OTHER, SELFPAY ==
[2024-10-22 02:42] VITALS: BP 130/77; PULSE 86; RESP 18; TEMP 36.7; O2SAT 99; BMI 24.2
--- NOTE | 2024-10-22 03:04 | PC.NURSE ---
MD to triage to eval pt. Plan for meds and dc home with script.
--- NOTE | 2024-10-22 03:09 | ED.ANIMALBIT ---
HPI - Animal Bite General Chief Complaint: Animal Bite Stated Complaint: dog bite Time Seen by Provider: 10/22/24 02:54 Source: patient Mode of arrival: ambulatory Limitations: no limitations History of Present Illness ED Provider: Dr. Kassandra Stinson HPI narrative: Patient comes to the emergency room complaining of a dog bite to the right calf. Patient states that this is her puppy. Patient has a several dogs, 2 of her dogs got into a fight due to a dispute for food. Patient was trying to separate them got in between the dog fight and patient got accidentally bitten. The dog is not up-to-date with immunizations. However, the patient states that the dog has been in the family since it was born. Initially, it was her cousins, and now the phobia lives with her. They have an appointment with the bed next week. Dog has been an indoor dog, has been acting normal. This was just a disagreement of both dogs over food and patient got caught in between. This happened a few hours ago. Related Data Home Medications ?Medication ?Instructions ?Recorded ?Confirmed omeprazole 20 mg capsule,delayed 1 cap PO DAILY 01/12/22 04/20/23 release sertraline 50 mg tablet 1 tab PO DAILY 01/12/22 04/20/23 fluticasone propionate 50 1 spray intranasal DAILY 04/20/23 04/20/23 mcg/actuation nasal spray,suspension lorazepam 1 mg tablet 1 mg PO BEDTIME 04/20/23 04/20/23 ibuprofen 600 mg tablet 600 mg PO Q6H 05/23/24 venlafaxine 75 mg capsule,extended 75 mg PO QAM 05/23/24 release 24 hr Previous Rx's ?Medication ?Instructions ?Recorded cyclobenzaprine 10 mg tablet 10 mg PO TID PRN muscle spasm #15 06/20/24 tabs meloxicam 15 mg tablet 15 mg PO DAILY #7 tabs 06/20/24 tizanidine 6 mg capsule 6 mg PO Q8H PRN muscle spasticity 06/20/24 5 days #15 caps acetaminophen 500 mg tablet 500 mg PO Q6H PRN fever or pain 10/02/24 (Tylenol Extra Strength) #14 tabs amoxicillin 500 mg capsule 500 mg PO TID 7 days #21 caps 10/02/24 morphine 15 mg immediate release 15 mg PO Q6H PRN pain (scale score 10/02/24 tablet 7-10) 3 days #5 tabs naproxen 500 mg tablet 500 mg PO BID PRN pain 10 days #20 10/02/24 tabs Lactobacillus rhamnosus GG 10 1 cap PO BID #30 caps 10/03/24 billion cell capsule (Culturelle) clindamycin HCl 150 mg capsule 150 mg PO TID 10 days #30 caps 10/03/24 doxycycline hyclate 100 mg capsule 100 mg PO BID #13 caps 10/22/24 ibuprofen 600 mg tablet 600 mg PO Q8H PRN fever or pain 10/22/24 #20 tabs metronidazole 500 mg tablet 500 mg PO BID #13 tabs 10/22/24 Allergies Allergy/AdvReac Type Severity Reaction Status Date / Time amoxicillin Allergy Intermediate swelling Verified 10/22/24 02:44 Review of Systems Review of Systems: Constitutional : No Weight loss, No Fever, No Chills, No Night Sweats, No Fatigue, No Malaise ENT/Mouth : No Hearing loss, No Ear Pain, No Nasal Congestion, No Sinus Pain, No Hoarseness, No sore throat, No Rhinorrhea, No Swallowing Difficulty Eyes: No Eye Pain, No Swelling, No Redness, No Foreign Body, No Discharge, No Vision Changes Cardiovascular : No Chest Pain, No SOB, No Dyspnea on Exertion, No Orthopnea, No Edema, No Palpitations Respiratory : No Cough, No Sputum, No Wheezing, No Smoke Exposure, No Dyspnea Gastrointestinal : No Nausea, No Vomiting, No Diarrhea, No Constipation, No abdominal Pain, No Hematochezia, No Melena Genitourinary : no irregular bleeding, No Dysuria, No Urinary Frequency, No Hematuria, No Urinary Incontinence, No Urgency, No Flank Pain, No Urinary Flow Changes, No Hesitancy Musculoskeletal : No joint pain, No Myalgias, No Joint Swelling Skin : Dog bite/puncture wound to the right calf Neuro : No Weakness, No Numbness, No Paresthesias, No Loss of Consciousness, No Dizziness, No Headache Psych : No Anxiety/Panic, No Depression, No SI/HI/AH/VH, No Social Issues, Heme/Lymph: No Bruising, No Bleeding,No Lymphadenopathy Endocrine : No Polyuria, No Polydipsia, No Temperature Intolerance PMF Past Medical History Medical History Renal calculi GERD (gastroesophageal reflux disease) Anxiety Depression ETOH abuse Surgical History Hx of straightening of nasal septum Social History Social History Alcohol intake: current Alcohol intake frequency: does not drink Alcohol type: wine and hard liquor Patient Tobacco Use Status: Current everyday Tobacco user Smoked in Last 30 Days: No Use of substances other than those prescribed or required for medical reasons: No Advance Directives: No Advance Directives Information Provided: Yes Do you have a plan to hurt others: No Plan Current occupational status: disabled Current occupation: rt knee Physical Exam ED Vital Signs: Vital Signs - 24 hr 10/22/24 02:42 Temperature 98.0 F Pulse Rate 86 Respiratory Rate 18 Blood Pressure 130/77 Pulse Oximetry 99 Oxygen Delivery Method Room Air BMI result Body Mass Index 24.2 Const Other: Appearance: Alert. Oriented X3. No acute distress. Eyes: Pupils equal, round and reactive to light. ENT: Pharynx normal. Neck: Normal inspection. Neck supple. No lymph nodes noted. No crepitus CVS: Normal heart rate and rhythm. Pulses normal. Normal S1 and S2 Respiratory: No respiratory distress. Breath sounds normal. No Wheezing. No rales Abdomen: Soft and nontender. No rigidity. No distention. Skin: Skin warm and dry. Normal skin color. Normal skin turgor. Extremities: No lower extremity edema. No Lacerations. No Rash. There is a single puncture wound to the right calf. Approximately 2 mm x 2 mm Neuro: Oriented X 3. No motor deficit. No sensory deficit. Moving all extremities. No slurred speech. CN 2 through 12 grossly intact Psych: calm, cooperative, normal affect Medical Decision Making Medical Decision Making MDM Narrative: Patient has been in the family and been an indoor dog all its life. Patient has displayed normal dog behavior, no suspicion of the dog being ill. Rabies not suspected. Patient is not up-to-date with Tdap or is not sure. Patient agrees to get a booster today. Also, patient given metronidazole and doxycycline today. Patient is known to have an anaphylactic reaction to amoxicillin. Discharge Plan Discharge Clinical Impression: Dog bite Patient Disposition: Home, Self-Care Instructions: Animal Bite (ED) Additional Instructions: Diffusely any signs of infection such as pus drainage, redness, pain out of proportion in the area of the dog bite, please return to the emergency immediately. Please follow-up with your primary care physician tomorrow. If you have any worsening or new symptoms, please return to the emergency room or call 911 Prescriptions: New doxycycline hyclate 100 mg capsule 100 mg PO BID Qty: 13 0RF metronidazole 500 mg tablet 500 mg PO BID Qty: 13 0RF ibuprofen 600 mg tablet 600 mg PO Q8H PRN (Reason: fever or pain) Qty: 20 0RF No Action omeprazole 20 mg capsule,delayed release(DR/EC) 1 cap PO DAILY sertraline 50 mg tablet 1 tab PO DAILY venlafaxine 75 mg capsule,extended release 24hr 75 mg PO QAM ibuprofen 600 mg tablet 600 mg PO Q6H meloxicam 15 mg tablet 15 mg PO DAILY Qty: 7 0RF tizanidine 6 mg capsule 6 mg PO Q8H PRN (Reason: muscle spasticity) 5 Days Qty: 15 0RF cyclobenzaprine 10 mg tablet 10 mg PO TID PRN (Reason: muscle spasm) Qty: 15 0RF clindamycin HCl 150 mg capsule 150 mg PO TID 10 Days Qty: 30 0RF Culturelle 10 billion cell capsule 1 cap PO BID Qty: 30 0RF lorazepam 1 mg tablet 1 mg PO BEDTIME fluticasone propionate 50 mcg/actuation spray,suspension 1 spray intranasal DAILY amoxicillin 500 mg capsule 500 mg PO TID 7 Days Qty: 21 0RF morphine 15 mg tablet 15 mg PO Q6H PRN (Reason: pain (scale score 7-10)) 3 Days Qty: 5 0RF Rx Instructions: Partial Fill upon patient request. acetaminophen [Tylenol Extra Strength] 500 mg tablet 500 mg PO Q6H PRN (Reason: fever or pain) Qty: 14 0RF naproxen 500 mg tablet 500 mg PO BID PRN (Reason: pain) 10 Days Qty: 20 0RF Print Language: Lebanese
[2024-10-22] MEDS: Doxycycline Monohydrate 100 MG CAPSULE PO (03:19)
[2024-10-22] MEDS: Diphth,Pertus(ACell),Tet Adult 0.5 ML SYRINGE IM (03:19)
[2024-10-22] MEDS: metroNIDAZOLE 500 MG TABLET PO (03:19)
[2024-10-22 03:25] VITALS: BP 130/77; PULSE 86; RESP 18; TEMP 36.7; O2SAT 99
== END 2024-10-22 03:25 | disposition home or self-care (01) ==
PROVIDERS: Emergency Provider Emergency Medicine; PCP Internal Medicine
DX: S81.851A Open bite, right lower leg, initial encounter (principal); M79.604 Pain in right leg; W54.0XXA Bitten by dog, initial encounter; Y93.9 Activity, unspecified; Y92.9 Unspecified place or not applicable; Y99.8 Other external cause status; Z23 Encounter for immunization
CPT/HCPCS: 90471; 90715; 99283; 99284

== ENCOUNTER 2024-12-11 01:24 | Emergency (ER) | payer OTHER, SELFPAY ==
[2024-12-11 01:33] VITALS: BP 156/94; PULSE 102; RESP 16; TEMP 37.7; O2SAT 97; BMI 26.3
[2024-12-11 01:51] LABS: MANUAL DIFF FLAG NO
[2024-12-11 01:53] LABS: Basophils Percent Auto 0.5 % (0-2); Eosinophils Percent Auto 0.2 % (0-4); Hematocrit 39.5 % (37.0-47.0); Hemoglobin 13.6 g/dl (12.0-16.0); Imm Gran Abs Auto 0.01 X10*3/uL (0.00-0.03); Imm Gran Pct Auto 0.2 % (0.0-0.4); Lymphocytes Absolute Auto 1.4 X10*3/uL (1.2-4.9); Lymphocytes Percent Auto 23.3 % (20-40); Mean Corpuscular HGB Conc 34.4 g/dl (31.0-35.0); Mean Corpuscular Hemoglobin 32.5 pg (27.0-33.0); Mean Corpuscular Volume 94.3 fL (80.0-98.0); Mean Platelet Volume 9.1 fL (9.4-12.3); Monocytes Absolute Auto 0.6 X10*3/uL (0.1-1.2); Monocytes Percent Auto 9.9 % (2-11); Neutrophils Absolute Auto 3.9 x10*3/uL (2.0-8.3); Neutrophils Percent Auto 65.9 % (45-73); Platelet Count 210 X10*3/uL (160-400); Red Blood Count 4.19 X10*6/uL (4.20-5.50); Red Cell Distribution Width 13.6 % (11.0-16.0); White Blood Count 5.8 X10*3/uL (4.8-10.8)
[2024-12-11 02:09] LABS: Alanine Aminotransferase 20 U/L (0-31); Albumin Level 4.3 g/dL (3.5-5.0); Anion Gap 16 (12-20); Aspartate Amino Transferase 26 U/L (5-31); Bilirubin Total 0.2 mg/dL (0.0-1.0); Blood Urea Nitrogen 11 mg/dL (9-16); Calcium 9.1 mg/dL (8.4-10.2); Carbon Dioxide 21 mmol/L (22-29); Chloride 103 mmol/L (96-108); Creatinine Clr Calc Pharmacy 101.7; Estimated Glomerular Filt Rate > 60; Glucose Random 87 mg/dL (60-115); Potassium 3.5 mmol/L (3.3-5.1); Sodium 136 mmol/L (135-145); Total Protein 7.4 g/dL (6.5-8.0)
[2024-12-11 02:12] LABS: IDNOW Serial# 6674DD1D; Strep A Nucleic Acid Negative (Negative)
[2024-12-11 02:29] LABS: Influenza A PCR NEGATIVE (Negative); Influenza B PCR NEGATIVE (Negative); Resp Syncy Virus RNA Qual PCR NEGATIVE (Negative); SARS COV2 PCR INHOUSE POSITIVE (Negative)
[2024-12-11 03:10] LABS: Alkaline Phosphatase 71 U/L (39-117)
--- OUTSIDE RECORDS SUMMARY | 2024-12-11 06:42 | XMS_ITS | Patient Health Record ---
Author Organization [facility] Address [address] [place] [address] Care Team Providers Care Regional Vice President Surgical Sales Name Role Phone Shawnee Delgado Primary Care Provider UnavailRajan Andres Jr Unavailable Allergies No Known Allergies Reason For Referral No Information Medications Medication SIG (Take, Route, Frequency, Duration) Notes Start Date End Date Status MiraLax (colon prep) 17 GM/SCOOP mixed with Gatorade or Crystal Light Orally begin at 5:00 p.m. the day before the procedure for 1 day 12/09/2021 Active MiraLax (colon prep) 17 GM/SCOOP mixed with Gatorade or Crystal Light Orally begin at 5:00 p.m. the day before the procedure for 1 day 12/10/2021 Active Sertraline HCl 50 MG Oral for 90 Active Dulcolax (colon prep) 5 MG take at 3:00 p.m and 7:00p.m. Orally two tablets twice a day for one day for 1 day 12/10/2021 Active Immunizations Vaccine Route Administration Date Status Comme nts Influenza Unknown 12/09/2021 Refused Social History Tobacco Use: Social History Observation Description Date Details (start date - stop date) Current Smoker NA - NA Tobacco Use/Smoking Question Answer Notes Patient is a current smoker Alcohol Screen Question Answer Notes Did you have a drink contain ing alcohol in the past year? Yes How often did you have a dri nk containing alcohol in the past year? 2 to 4 times a month (2 points) How many drinks did you have on a typical day when you were drinking in the past year? 3 or 4 drinks (1 point) How often did you have 6 or more drinks on one occasion in the past year? Monthly (2 points) Points 5 Interpretation Positive Plan Of Treatment Future Test Test Name Order Date COLONOSCOPY 12/09/2021 Insurance Providers Payer Name Payer Address Payer Phone Subscriber Number Group Number Insured Name Patient Relationship to Insured Coverage Start Date Coverage End Date [facility] [address] [address] [place], [place] [phone] [id number] COURTNEY WHITE Self - patient is the insured Medical (General) History Medical History History ICD Code Gastroesophageal reflux disease Anxiety/depression Nephrolithiasis History of elevated liver function tests Surgical History Surgery Date(Month/Year)
--- OUTSIDE RECORDS SUMMARY | 2024-12-11 06:42 | XMS_ITS | Clinical Summary ---
Author Organization [facility] Address [address] [place] [address] Care Team Providers Care Braiding Machine Operator Name Role Phone Unavailable Primary Care [...] patient's age to complete this topic Insurance [facility] MEDICAID STAND ADULT
--- OUTSIDE RECORDS SUMMARY | 2024-12-11 06:42 | XMS_ITS | Encounter Summary ---
Author Organization [employer] Address [address] [place] [address] Care Team Providers Care Advertising Consultant Name Role Phone Unavailable Primary Care Provider Unavailabl e Reason for Visit * Reason Comments Med Refill Encounter Details Date Type Department Care Team (Late st Contact Info) Description 06/22/2023 Refill [facility] [address], [place] [phone] Lukas Duran DMD [address], [place] [phone] Dental caries extending into pulp Social History [...] Telephone Encounter - Lukas Duran DMD - 06/23/2023 8:39 AM EDT Approving, but needs appt for additional refills. documented in this encounter Plan of Treatment Not on file documented as of this encounter Visit Diagnoses Diagnosis Dental caries extending into pulp documented in this encounter
--- OUTSIDE RECORDS SUMMARY | 2024-12-11 06:42 | XMS_ITS | Encounter Summary ---
Author Organization [employer] Address [address] [place] [address] Care Team Providers Care Automatic Glove Former Name Role Phone Unavailable Primary Care Provider Unavailabl e Reason for Visit * Reason Comments Med Refill Encounter Details Date Type Department Care Team (Late st Contact Info) Description 09/25/2023 Refill [facility] [address], [place] [phone] Lukas Duran DMD [address], [place] [phone] Dental caries extending into pulp Social History [...]
--- NOTE | 2024-12-11 08:07 | ED_ITS ---
HPI - General Adult General Chief complaint: Upper Respiratory Symptoms Stated complaint: headache Time Seen by Provider: 12/11/24 08:01 Source: patient and per diem interpreter (all interactions with this patient were facilitated with an [place] freelance interpreter/translator) Mode of arrival: ambulatory Limitations: language barrier (all interactions with this patient were facilitated with an [place] freelance interpreter/translator) History of Present Illness ED Provider: Anna Lopez PA-C HPI narrative: Patient is a 54 year old assigned female at with a history of anxiety, depression, and GERD presenting to the emergency department today with a headache, cough, sore throat, and fever. Patient states that over the last day she has had a cough, fever, sore throat, and headache. Patient denies any dizziness, lightheadedness, abdominal pain, nausea, vomiting, chills, blurry vision, double vision, loss of vision, chest pain, difficulty breathing, shortness of breath, back pain, night sweats, pain with urination, increased urinary frequency, increased urinary urgency, blood in her urine or stool, syncope or a near syncopal episode, recent trauma or falls, bowel incontinence, bladder incontinence, or any other complaints at this time. Onset (ago): day(s) Relieving factors: none Exacerbating factors: none Associated symptoms: cough and fever/chills Treatments prior to arrival: other (Tylenol) Related Data Home Medications ?Medication ?Instructions ?Recorded ?Confirmed omeprazole 20 mg capsule,delayed 1 cap PO DAILY 01/12/22 04/20/23 release sertraline 50 mg tablet 1 tab PO DAILY 01/12/22 04/20/23 fluticasone propionate 50 1 spray intranasal DAILY 04/20/23 04/20/23 mcg/actuation nasal spray,suspension lorazepam 1 mg tablet 1 mg PO BEDTIME 04/20/23 04/20/23 ibuprofen 600 mg tablet 600 mg PO Q6H 05/23/24 venlafaxine 75 mg capsule,extended 75 mg PO QAM 05/23/24 release 24 hr Previous Rx's ?Medication ?Instructions ?Recorded cyclobenzaprine 10 mg tablet 10 mg PO TID PRN muscle spasm #15 06/20/24 tabs meloxicam 15 mg tablet 15 mg PO DAILY #7 tabs 06/20/24 tizanidine 6 mg capsule 6 mg PO Q8H PRN muscle spasticity 06/20/24 5 days #15 caps acetaminophen 500 mg tablet 500 mg PO Q6H PRN fever or pain 10/02/24 (Tylenol Extra Strength) #14 tabs amoxicillin 500 mg capsule 500 mg PO TID 7 days #21 caps 10/02/24 morphine 15 mg immediate release 15 mg PO Q6H PRN pain (scale score 10/02/24 tablet 7-10) 3 days #5 tabs naproxen 500 mg tablet 500 mg PO BID PRN pain 10 days #20 10/02/24 tabs Lactobacillus rhamnosus GG 10 1 cap PO BID #30 caps 10/03/24 billion cell capsule (Culturelle) clindamycin HCl 150 mg capsule 150 mg PO TID 10 days #30 caps 10/03/24 doxycycline hyclate 100 mg capsule 100 mg PO BID #13 caps 10/22/24 ibuprofen 600 mg tablet 600 mg PO Q8H PRN fever or pain 10/22/24 #20 tabs metronidazole 500 mg tablet 500 mg PO BID #13 tabs 10/22/24 Allergies Allergy/AdvReac Type Severity Reaction Status Date / Time amoxicillin Allergy Intermediate swelling Verified 12/11/24 01:39 Review of Systems 2 Constitutional: Constitutional: Reports no additional constitutional complaints, Denies chills, Reports fever(s) and Denies night sweats Eyes: Eyes: Reports no additional eye complaints, Denies blurry vision, Denies change in vision, Denies diplopia, Denies eye discharge, Denies loss of vision and Denies eye pain ENT: Denies dizziness and Reports sore throat Cardiovascular: Cardiovascular: Reports no additional cardiovascular complaints, Denies chest pain, Denies lightheadedness, Denies Loss of Consciousness and Denies dyspnea Respiratory: Respiratory: Reports no additional respiratory complaints, Reports cough and Denies dyspnea Gastrointestinal: Gastrointestinal: Reports no additional gastrointestinal complaints, Denies abdominal pain, Denies melena, Denies hematochezia, Denies change in bowel habits and Denies change in stool character Genitourinary: Genitourinary: Denies hematuria, Denies urinary frequency, Denies dysuria, Denies urinary incontinence, Denies urinary hesitancy and Denies urinary urgency Musculoskeletal: Musculoskeletal: Reports no additional musculoskeletal complaints, Denies numbness and Denies tingling Neurologic: Denies dizziness, Denies loss of vision, Denies numbness and Denies tingling Psychiatric: Psychiatric: Reports no additional psychiatric complaints Endocrine: Endocrine: Reports no additional endocrine complaints Hematologic/Lymphatic: Hematologic/Lymphatic: Reports no additional hematologic/lymphatic complaints Allergic/Immunologic: Allergic/Immunologic: Reports no additional allergic/immunologic complaints [facility] Past Medical History Attestation statement: The following information was validated with the patient. Source: old records reviewed and nursing notes reviewed Medical History Renal calculi GERD (gastroesophageal reflux disease) Anxiety Depression ETOH abuse Surgical History Hx of straightening of nasal septum Social History Social History Alcohol intake: current Alcohol intake frequency: does not drink Alcohol type: beer Patient Tobacco Use Status: Current everyday Tobacco user Smoked in Last 30 Days: Yes Use of substances other than those prescribed or required for medical reasons: No Advance Directives: No Advance Directives Information Provided: Yes Do you have a plan to hurt others: No Plan Current occupational status: disabled Current occupation: rt knee Physical Exam ED Vital Signs: Vital Signs - 24 hr 12/11/24 01:33 Temperature 99.8 F Pulse Rate 102 H Respiratory Rate 16 Blood Pressure 156/94 H Pulse Oximetry 97 Oxygen Delivery Method Room Air BMI result Body Mass Index 26.3 Const General: cooperative, no acute distress, alert and awake Nutritional Appearance: well nourished Orientation/consciousness: patient oriented x3 Limitations: no limitations HENMT Head: Yes normal to inspection and Yes atraumatic Ears: hearing grossly normal bilaterally and external ears normal General nose exam: Normal external nose present, no nasal discharge noted and no epistaxis Face and sinus: Yes normal facial exam, No abrasion and No laceration Mouth: Normal oral and palatal mucosa present, no drooling and no muffled voice Eyes General: appearance normal, both eyes and all related structures Periorbital: periorbital findings normal Eyelids: Yes eyelids normal Conjunctivae: conjunctivae normal Pupils: Equal, round and reactive pupils present EOM: EOMs intact bilaterally Neck Neck: Yes normal visual inspection, Yes full ROM and Yes no lymphadenopathy Chest Chest palpation & inspection: normal inspection of the chest Resp Effort & Inspection: normal respiratory effort and able to speak in complete sentences GI Inspection: Yes normal to inspection Neuro General: patient oriented x3, moves all extremities and CN's II-XI intact bilaterally Cranial nerves: Yes Equal, round and reactive pupils present Cognition (Neuro): normal cognition Extrem General: Yes normal to inspection, Yes full ROM and Yes capillary refill normal Psych Appearance: grossly normal Mental Status: mental status grossly normal Affect: normal affect Attitude: cooperative Thought process: Normal thought process present Thought content: Normal thought content present Insight: Good insight present (Psych) Medications Administered Discontinued Medications Generic Name Dose Route Start Last Admin Trade Name Marcoq PRN Reason Stop Dose Admin Ketorolac Tromethamine 15 mg 12/11/24 08:27 12/11/24 08:58 Ketorolac Tromethamine 15 Mg/Ml Vial IM 12/11/24 08:28 15 mg ONCE ONE Administration Medical Decision Making Medical Decision Making [facility] Narrative: Patient is a 54 year old assigned female at with a history of anxiety, depression, and GERD presenting to the emergency department today with a headache, cough, sore throat, and fever. Patient's physical exam was unremarkable. Patient's blood work was unremarkable. Patient's COVID-19 test was positive. I explained my physical exam findings as well as all test results to the patient. I answered all questions asked by the patient. I stressed the importance of the patient taking her medication as directed (either prescribed or as the over the counter packaging recommends). I stressed the importance of the patient following up with her primary care provider. I stressed the importance of the patient returning to the emergency department immediately if her symptoms were to worsen or if she were to develop any dizziness, shortness of breath, difficulty breathing, chest pain, blurry vision, loss of vision, nausea, vomiting, abdominal pain, fever, chills, back pain, or any other complaints. Patient verbalized agreement and understanding with this treatment plan and discharge. Differential Diagnosis Differential Diagnoses: The differential diagnosis associated with the presentation includes COVID-19 Influenza RSV Viral illness Admission/Observation Consideration of admission/observation: Escalation of care including admission/observation considered Patient would have been admitted to the hospital had her work up had any findings where hospital admission was appropriate and her clinical presentation warranted hospital admission. Lab Data [facility] Lab Attestation statement: I reviewed the patient's lab results. My interpretation of these results are in the [facility] Rationale portion of this note. 12/11/24 01:46 12/11/24 01:46 Labs: Lab Results 04/15/25 04/15/25 Range/Units 01:45 01:46 WBC 5.8 (4.8-10.8) X10*3/uL RBC 4.19 L (4.20-5.50) X10*6/uL Hgb 13.6 (12.0-16.0) g/dl Hct 39.5 (37.0-47.0) % MCV 94.3 (80.0-98.0) fL MCH 32.5 (27.0-33.0) pg MCHC 34.4 (31.0-35.0) g/dl RDW 13.6 (11.0-16.0) % Plt Count 210 (160-400) X10*3/uL MPV 9.1 L (9.4-12.3) fL Immature Gran % (Auto) 0.2 (0.0-0.4) % Neut % (Auto) 65.9 (45-73) % Lymph % (Auto) 23.3 (20-40) % Lincoln % (Auto) 9.9 (2-11) % Eos % (Auto) 0.2 (0-4) % Baso % (Auto) 0.5 (0-2) % Lymph # (Auto) 1.4 (1.2-4.9) X10*3/uL Lincoln # (Auto) 0.6 (0.1-1.2) X10*3/uL Eos # (Auto) 0.0 (0.0-0.4) X10*3/uL Baso # (Auto) 0.0 (0.0-0.2) X10*3/uL Abs Immat Gran (auto) 0.01 (0.00-0.03) X10*3/uL Absolute Neuts (auto) 3.9 (2.0-8.3) x10*3/uL Absolute Nucleated RBC 0.000 (0.0-0.012) X10*3/uL Nucleated RBC % (auto) 0.0 (0.0-0.2) /100WBC Sodium 136 (135-145) mmol/L Potassium 3.5 (3.3-5.1) mmol/L Chloride 103 (96-108) mmol/L Carbon Dioxide 21 L (22-29) mmol/L Anion Gap 16 (12-20) BUN 11 (9-16) mg/dL Creatinine 0.65 (0.5-1.4) mg/dL Estim Creat Clear Calc 101.7 Estimated GFR > 60 Random Glucose 87 (60-115) mg/dL Calcium 9.1 (8.4-10.2) mg/dL Total Bilirubin 0.2 (0.0-1.0) mg/dL AST 26 (5-31) U/L ALT 20 (0-31) U/L Alkaline Phosphatase 71 (39-117) U/L Total Protein 7.4 (6.5-8.0) g/dL Albumin 4.3 (3.5-5.0) g/dL Influenza Type A (PCR) NEGATIVE (Negative) Influenza Type B (PCR) NEGATIVE (Negative) RSV RNA Qual (PCR) NEGATIVE (Negative) SARS-CoV-2 RNA (RT-PCR) POSITIVE A (Negative) S. pyogenes GrpA SURY Negative (Negative) Discharge Plan Discharge Clinical Impression: COVID-19 Patient Disposition: Home, Self-Care Instructions: COVID-19 (Coronavirus Disease 2019) (ED) Additional Instructions: Follow up with your primary care provider. Return to the emergency department immediately if your symptoms worsen or if you develop any dizziness, shortness of breath, difficulty breathing, chest pain, blurry vision, loss of vision, nausea, vomiting, abdominal pain, fever, chills, back pain, or any other complaints. Liz?seguimiento?con sprague m?dico de atenci?n primaria. Acuda inmediatamente al servicio de urgencias si jose manuel s?ntomas empeoran o si presenta falta de aliento, dificultad para respirar, dolor tor?cico, mareos, aturdimiento, dolor de espalda, dolor abdominal, fiebre, escalofr?os o cualquier otro s?ntoma. Please see the information below about our Patient Portal. If you are not yet enrolled in the [facility] Patient Portal, you will receive an enrollment email invitation following your visit to any [facility] care setting. You may also self-enroll in the Patient Portal by visiting our website: [email or web address] The following information is required to access the Patient Portal: - Your [place] Medical Record Number - Your personal home email address (must match what is in your electronic medical record, Registration staff can assist with this) - Name - Date of Capabilities of the Patient Portal: - Message some providers - View upcoming appointments - Access your health summary, medical history, and visit history - View current conditions and allergies - View procedure and lab results - View your medications, including guidelines, side effects, and precautions - Complete pre-appointment questionnaires requested by your provider - Ready summary reports of your office visits and procedures To access the Patient Portal Mobile [employer], follow these directions: - Search [employer] in the [employer] Store or [employer] Store - Download the [employer] - Search for [facility] - Enter your login/password Portal del paciente Si usted no esta inscrito en el portal de pacientes de [facility], recibira jaylyn invitacion de inscripcion despues de sprague visita al [place] o al [facility] via correo electronico. Tambien puede inscribirse voluntariamente en el portal de pacientes visitando nuestra pagina web: [email or web address] La siguiente informacion sera requerida para acceder al portal: - Sprague luli de historia medica de [place] - Sprague direccion de correo electronico personal - Nombre - Fecha de nacimiento Capacidades: Las siguientes capacidades estan disponibles en el portal de pacientes: - Enviar mensajes a algunos doctores - Verificar proximas citas - Acceso a sprague historial de to, registro medico e historial de visitas - Xiomara las condiciones actuales y alergias xiomara procedimientos y resultados del laboratorio - Xiomara jose manuel medicamentos, incluyendo las pautas - Efectos secundarios y precauciones - Completar o llenar formularios / cuestionarios de - Citas solicitadas por sprague doctor - Leer los resumenes de reportes medicos de jose manuel visitas y procedimientos Laurence acceder a la aplicacion movil: - [facility] [employer] en la [employer] Store o [employer] Store - Descargue la aplicacion - [facility] - Ingrese sprague nombre de usuario / Contrasena Prescriptions: No Action omeprazole 20 mg capsule,delayed release(DR/EC) 1 cap PO DAILY sertraline 50 mg tablet 1 tab PO DAILY venlafaxine 75 mg capsule,extended release 24hr 75 mg PO QAM ibuprofen 600 mg tablet 600 mg PO Q6H meloxicam 15 mg tablet 15 mg PO DAILY Qty: 7 0RF tizanidine 6 mg capsule 6 mg PO Q8H PRN (Reason: muscle spasticity) 5 Days Qty: 15 0RF cyclobenzaprine 10 mg tablet 10 mg PO TID PRN (Reason: muscle spasm) Qty: 15 0RF clindamycin HCl 150 mg capsule 150 mg PO TID 10 Days Qty: 30 0RF Culturelle 10 billion cell capsule 1 cap PO BID Qty: 30 0RF doxycycline hyclate 100 mg capsule 100 mg PO BID Qty: 13 0RF metronidazole 500 mg tablet 500 mg PO BID Qty: 13 0RF ibuprofen 600 mg tablet 600 mg PO Q8H PRN (Reason: fever or pain) Qty: 20 0RF lorazepam 1 mg tablet 1 mg PO BEDTIME fluticasone propionate 50 mcg/actuation spray,suspension 1 spray intranasal DAILY amoxicillin 500 mg capsule 500 mg PO TID 7 Days Qty: 21 0RF morphine 15 mg tablet 15 mg PO Q6H PRN (Reason: pain (scale score 7-10)) 3 Days Qty: 5 0RF Rx Instructions: Partial Fill upon patient request. acetaminophen [Tylenol Extra Strength] 500 mg tablet 500 mg PO Q6H PRN (Reason: fever or pain) Qty: 14 0RF naproxen 500 mg tablet 500 mg PO BID PRN (Reason: pain) 10 Days Qty: 20 0RF Referrals: Shawnee Delgado MD [Primary Care Provider] - Print Language: Colombian
[2024-12-11] MEDS: Ketorolac Tromethamine 15 MG/ML VIAL IM (08:58)
[2024-12-11 10:11] VITALS: BP 156/94; PULSE 102; RESP 16; TEMP 37.7; O2SAT 97
== END 2024-12-11 10:12 | disposition home or self-care (01) ==
PROVIDERS: Emergency Provider Emergency Medicine; PCP Internal Medicine
DX: U07.1 COVID-19 (principal)
CPT/HCPCS: 0241U; 80053; 85025; 87651; 96372; 99284; J1885

== ENCOUNTER 2025-01-30 02:25 | Emergency (ER) | payer OTHER, SELFPAY ==
[2025-01-30 02:34] VITALS: BP 161/83; PULSE 78; RESP 18; TEMP 36.7; O2SAT 100
[2025-01-30 02:35] VITALS: BP 161/83; PULSE 78; RESP 20; TEMP 36.7; O2SAT 98; BMI 25.8
--- OUTSIDE RECORDS SUMMARY | 2025-01-30 02:35 | XMS_ITS | Patient Health Record ---
Author Organization [facility] Address [address] [place] [address] Care Team Providers Care Care Rep Name Role Phone Shawnee Delgado Primary Care [...] Insured Coverage Start Date Coverage End Date [facility] [address] [address] [place], [place] [id number] COURTNEY WHITE Self - patient is the insured Medical (General) History Medical History History ICD Code Gastroesophageal reflux disease Anxiety/depression Nephrolithiasis History of elevated liver function tests Surgical History Surgery Date(Month/Year)
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
[2025-01-30] MEDS: Cyclobenzaprine HCl 10 MG TABLET PO (03:18)
[2025-01-30] MEDS: Ketorolac Tromethamine 30 MG/ML VIAL IM (03:18)
--- NOTE | 2025-01-30 03:23 | PC.NURSE ---
medicated per mar.
[2025-01-30 03:42] VITALS: BP 161/83; PULSE 78; RESP 20; TEMP 36.7; O2SAT 98
== END 2025-01-30 03:43 | disposition home or self-care (01) ==
PROVIDERS: Emergency Provider Emergency Medicine; PCP Internal Medicine
DX: M54.2 Cervicalgia (principal); M25.519 Pain in unspecified shoulder; M54.6 Pain in thoracic spine; T14.90XA Injury, unspecified, initial encounter; V49.9XXA Car occupant (driver) (passenger) injured in unspecified traffic accident, initial encounter; Y93.9 Activity, unspecified; Y92.9 Unspecified place or not applicable; Y99.9 Unspecified external cause status
CPT/HCPCS: 96372; 99284; J1885

== ENCOUNTER 2025-05-20 01:24 | Emergency (ER) | payer OTHER, SELFPAY ==
--- NOTE | ~2025-05-20 | CT_ITS ---
CLINICAL HISTORY: pain CT lumbar spine without contrast Comparison: None provided. Findings: Normal vertebral body alignment. No acute fractures or dislocations. Vacuum disc phenomenon present at L4-L5 and L5-S1. No pars interarticularis defects. Minimal to mild degenerative endplate changes present at the lumbar spine inferiorly. No high-grade central canal stenosis identified at the lumbar spine within the limits of noncontrast CT evaluation. There is moderate neural foraminal stenosis on the right L5-S1 with moderate to severe neural foraminal stenosis on the left at L5-S1. Impression: 1. No acute fracture or dislocation injury identified at the lumbar spine. 2. Degenerative changes present at the lumbar spine as described above. This document has been electronically signed by: Armand Marte MD on 05/20/2025 03:36:29
[2025-05-20 01:31] VITALS: BP 149/83; PULSE 72; RESP 16; TEMP 36.6; O2SAT 100; BMI 25.9
--- OUTSIDE RECORDS SUMMARY | 2025-05-20 01:55 | XMS_ITS | Encounter Summary ---
Author Organization [employer] Address [address] [place] [address] Care Team Providers Care Agri Business Agent Name Role Phone Unavailable Primary Care Provider Unavailabl e Reason for Visit * Reason Comments Med Refill Encounter Details Date Type Department Care Team (Late st Contact Info) Description 06/22/2023 Refill [facility] [address], [place] [phone] Lukas Duran DMD [address], [place] [phone] Dental caries extending into pulp Social History [...]
--- OUTSIDE RECORDS SUMMARY | 2025-05-20 01:55 | XMS_ITS | Patient Health Record ---
Author Organization [facility] Address [address] [place] [address] Care Team Providers Care Acute Specialist Name Role Phone Shawnee Delgado Primary Care [...] Insured Coverage Start Date Coverage End Date [facility] [address] [address] [place], [place] [id number] COURTNEY WHITE Self - patient is the insured Medical (General) History Medical History History ICD Code Gastroesophageal reflux disease Anxiety/depression Nephrolithiasis History of elevated liver function tests Surgical History Surgery Date(Month/Year)
--- OUTSIDE RECORDS SUMMARY | 2025-05-20 01:55 | XMS_ITS | Clinical Summary ---
Author Organization [facility] Address [address] [place] [address] Care Team Providers Care Room Server Name Role Phone Unavailable Primary Care Provider [...] Screening 1970 SDOH Screening 1970 Sigmoidoscopy 1970 Disability Screening 1970 Alcohol/Substance Use Screening 1982 Hepatitis C [...] COVID-19 Vaccine (1 - 2023-2 5 season) 2025 Influenza Vaccine (#1) 2025 10/29/2010 RSV Patients and Pa tients Aged [...] patient's age to complete this topic Meningococcal B Vaccine Aged Out No l onger eligible based on patient's age to complete this topic Meningococcal Vaccine Aged Out No [place] eligible based on patient's age to complete this topic RSV under 20 months Aged Out No longe r eligible based on patient's age to complete this topic Rotavirus Vaccines Aged Out No longer eligible based on patient's age to complete this topic Insurance [facility] MEDICAID STAND ADULT
--- OUTSIDE RECORDS SUMMARY | 2025-05-20 01:55 | XMS_ITS | Encounter Summary ---
Author Organization [employer] Address [address] [place] [address] Care Team Providers Care Data Center Manager Name Role Phone Unavailable Primary Care Provider Unavailabl e Reason for Visit * Reason Comments Med Refill Encounter Details Date Type Department Care Team (Late st Contact Info) Description 09/25/2023 Refill [facility] [address], [place] [phone] Lukas Duran DMD [address], [place] [phone] Dental caries extending into pulp Social History [...]
--- NOTE | 2025-05-20 02:19 | ED.GENADULT ---
HPI - General Adult General Chief complaint: Extremity Injury, Lower Stated complaint: Leg inj Time Seen by Provider: 05/20/25 02:18 Source: patient Limitations: no limitations History of Present Illness ED Provider: Valeria Ugalde PA-C HPI narrative: 54-year-old female with a history of alcohol use disorder, anxiety, depression, kidney stones and GERD presents with left groin pain x4 days. Patient states she is having pain over left low back, left hip and groin with radiation into the thigh. Denies paresthesia, weakness of lower extremity, low back pain, urinary retention or bowel incontinence. Patient is experiencing increased urinary frequency for 2 weeks with dysuria. Denies fever, nausea, vomiting. Related Data Home Medications ?Medication ?Instructions ?Recorded ?Confirmed omeprazole 20 mg capsule,delayed 1 cap PO DAILY 01/12/22 04/20/23 release sertraline 50 mg tablet 1 tab PO DAILY 01/12/22 04/20/23 fluticasone propionate 50 1 spray intranasal DAILY 04/20/23 04/20/23 mcg/actuation nasal spray,suspension lorazepam 1 mg tablet 1 mg PO BEDTIME 04/20/23 04/20/23 ibuprofen 600 mg tablet 600 mg PO Q6H 05/23/24 venlafaxine 75 mg capsule,extended 75 mg PO QAM 05/23/24 release 24 hr Previous Rx's ?Medication ?Instructions ?Recorded cyclobenzaprine 10 mg tablet 10 mg PO TID PRN muscle spasm #15 06/20/24 tabs meloxicam 15 mg tablet 15 mg PO DAILY #7 tabs 06/20/24 tizanidine 6 mg capsule 6 mg PO Q8H PRN muscle spasticity 06/20/24 5 days #15 caps acetaminophen 500 mg tablet 500 mg PO Q6H PRN fever or pain 10/02/24 (Tylenol Extra Strength) #14 tabs amoxicillin 500 mg capsule 500 mg PO TID 7 days #21 caps 10/02/24 morphine 15 mg immediate release 15 mg PO Q6H PRN pain (scale score 10/02/24 tablet 7-10) 3 days #5 tabs naproxen 500 mg tablet 500 mg PO BID PRN pain 10 days #20 10/02/24 tabs Lactobacillus rhamnosus GG 10 1 cap PO BID #30 caps 10/03/24 billion cell capsule (Culturelle) clindamycin HCl 150 mg capsule 150 mg PO TID 10 days #30 caps 10/03/24 doxycycline hyclate 100 mg capsule 100 mg PO BID #13 caps 10/22/24 ibuprofen 600 mg tablet 600 mg PO Q8H PRN fever or pain 10/22/24 #20 tabs metronidazole 500 mg tablet 500 mg PO BID #13 tabs 10/22/24 cyclobenzaprine 5 mg tablet 5 mg PO TID PRN muscle spasm #10 01/30/25 tabs ketorolac 10 mg tablet 10 mg PO Q8H #12 tabs 01/30/25 ketorolac 10 mg tablet 10 mg PO Q6H PRN pain #20 tabs 05/20/25 methocarbamol 750 mg tablet 750 mg PO Q8H PRN pain, moderate 05/20/25 #15 tabs methylprednisolone 4 mg tablets in 4 mg PO QAM #21 ea 05/20/25 a dose pack (Medrol (Jameel)) Allergies Allergy/AdvReac Type Severity Reaction Status Date / Time amoxicillin Allergy Intermediate swelling Verified 05/20/25 01:36 [facility] Past Medical History Attestation statement: The following information was validated with the patient. Medical History Renal calculi GERD (gastroesophageal reflux disease) Anxiety Depression ETOH abuse Surgical History Hx of straightening of nasal septum Social History Social History Alcohol intake: current Alcohol intake frequency: does not drink Alcohol type: beer Patient Tobacco Use Status: Current everyday Tobacco user Advance Directives: No Advance Directives Information Provided: No Do you have a plan to hurt others: No Plan Current occupational status: disabled Current occupation: rt knee Physical Exam ED Vital Signs: Vital Signs - 24 hr 05/20/25 01:31 05/20/25 03:00 Temperature 97.9 F 97.9 F Pulse Rate 72 68 Respiratory Rate 16 16 Blood Pressure 149/83 H 127/81 Pulse Oximetry 100 99 Oxygen Delivery Method Room Air Room Air BMI result Body Mass Index 25.9 Medications Administered Discontinued Medications Generic Name Dose Route Start Last Admin Trade Name Freq PRN Reason Stop Dose Admin Diazepam 5 mg 05/20/25 02:20 05/20/25 03:01 Diazepam 10 Mg/2 Ml Cartridge IM 05/20/25 02:21 5 mg STAT STA Administration Ketorolac Tromethamine 15 mg 05/20/25 02:20 05/20/25 03:00 Ketorolac Tromethamine 15 Mg/Ml Vial IM 05/20/25 02:21 15 mg ONCE ONE Administration Medical Decision Making Medical Decision Making [facility] Narrative: 54-year-old female with a history of alcohol use disorder, anxiety, depression, kidney stones and GERD presents with left groin pain x4 days. Patient states she is having pain over left low back, hip and groin with radiation into the thigh. Denies paresthesia, weakness of lower extremity, low back pain, urinary retention or bowel incontinence. Patient is experiencing increased urinary frequency for 2 weeks with dysuria. Denies fever, nausea, vomiting. Problem: Alcohol use disorder, kidney stones History: Per patient I have considered the following differential diagnoses: Lumbar strain, lumbar radiculopathy, cauda equina, renal colic, UTI, pyelonephritis Plan: Patient is here with low back, groin and hip pain that has radiating down the leg, she denies upper back pain. She is having radicular symptoms, without red flag signs symptoms concerning for cord compression. She is not having flank pain to suggest renal colic, no CVA tenderness to suggest pyelonephritis, with her urinary symptoms, my only concern at this point is for urinary tract infection, we will obtain a urine sample. Giving Toradol and Valium for her discomfort . Obtaining CT scan of lumbar spine. I have independently reviewed the following tests: Labs: Urine not infected no hematuria CT lumbar spine:Findings: Normal vertebral body alignment. No acute fractures or dislocations. Vacuum disc phenomenon present at L4-L5 and L5-S1. No pars interarticularis defects. Minimal to mild degenerative endplate changes present at the lumbar spine inferiorly. No high-grade central canal stenosis identified at the lumbar spine within the limits of noncontrast CT evaluation. There is moderate neural foraminal stenosis on the right L5-S1 with moderate to severe neural foraminal stenosis on the left at L5-S1. Impression: 1. No acute fracture or dislocation injury identified at the lumbar spine. 2. Degenerative changes present at the lumbar spine as described above. Differential Diagnosis Differential Diagnoses: The differential diagnosis associated with the presentation includes See medical decision-making Admission/Observation Consideration of admission/observation: Escalation of care including admission/observation considered Not applicable Lab Data MDM Lab Attestation statement: I reviewed the patient's lab results. Labs: Lab Results 05/20/25 Range/Units 03:04 Urine Color Yellow Urine Appearance Clear Urine pH 5.5 (5.0-9.0) Ur Specific [place] <= 1.005 (1.005-1.025) Urine Protein Negative (Neg-Trace) mg/dL Urine Glucose (UA) Negative (Negative) mg/dL Urine Ketones Negative (Negative) mg/dL Urine Blood Negative (Negative) Urine Nitrite Negative (Negative) Ur Leukocyte Esterase Negative (Negative) Radiology Impression Discussion of test interpretation with radiology: I have reviewed the radiologist's reading. Discharge Plan Discharge Clinical Impression: Left lumbar radiculopathy, Osteoarthritis, Osteoarthritis of lumbar spine Patient Disposition: Home, Self-Care Instructions: Osteoarthritis (ED), Lumbar Radiculopathy (ED) Additional Instructions: Your urine is not infected. The imaging revealed that you have degenerative changes in your lumbar spine, causing your symptoms. You are being treated for lumbar radiculopathy. See home care instructions. Use the ketorolac as directed this is an anti-inflammatory take it with food. Use the Medrol Dosepak as directed, this is a 2nd anti-inflammatory. Use the methocarbamol as needed for further pain, this is a muscle relaxant. This will cause drowsiness do not drive or operate machinery while taking this medication. Follow up with your primary care provider as needed. Prescriptions: New ketorolac 10 mg tablet 10 mg PO Q6H PRN (Reason: pain) Qty: 20 0RF Rx Instructions: maximum total duration of 5 days from all oral, intranasal, or parenteral formulations. Patient received an intramuscular dose of Toradol here in the emergency room methylprednisolone [Medrol (Jameel)] 4 mg tablets,dose pack 4 mg PO QAM Qty: 21 0RF Rx Instructions: Take per package instructions methocarbamol 750 mg tablet 750 mg PO Q8H PRN (Reason: pain, moderate) Qty: 15 0RF No Action omeprazole 20 mg capsule,delayed release(DR/EC) 1 cap PO DAILY sertraline 50 mg tablet 1 tab PO DAILY venlafaxine 75 mg capsule,extended release 24hr 75 mg PO QAM ibuprofen 600 mg tablet 600 mg PO Q6H meloxicam 15 mg tablet 15 mg PO DAILY Qty: 7 0RF tizanidine 6 mg capsule 6 mg PO Q8H PRN (Reason: muscle spasticity) 5 Days Qty: 15 0RF cyclobenzaprine 10 mg tablet 10 mg PO TID PRN (Reason: muscle spasm) Qty: 15 0RF clindamycin HCl 150 mg capsule 150 mg PO TID 10 Days Qty: 30 0RF Culturelle 10 billion cell capsule 1 cap PO BID Qty: 30 0RF doxycycline hyclate 100 mg capsule 100 mg PO BID Qty: 13 0RF metronidazole 500 mg tablet 500 mg PO BID Qty: 13 0RF ibuprofen 600 mg tablet 600 mg PO Q8H PRN (Reason: fever or pain) Qty: 20 0RF cyclobenzaprine 5 mg tablet 5 mg PO TID PRN (Reason: muscle spasm) Qty: 10 0RF ketorolac 10 mg tablet 10 mg PO Q8H Qty: 12 0RF Rx Instructions: Do not use this medication with naproxen, ibuprofen or any other NSAIDs, only acetaminophen if needed lorazepam 1 mg tablet 1 mg PO BEDTIME fluticasone propionate 50 mcg/actuation spray,suspension 1 spray intranasal DAILY amoxicillin 500 mg capsule 500 mg PO TID 7 Days Qty: 21 0RF morphine 15 mg tablet 15 mg PO Q6H PRN (Reason: pain (scale score 7-10)) 3 Days Qty: 5 0RF Rx Instructions: Partial Fill upon patient request. acetaminophen [Tylenol Extra Strength] 500 mg tablet 500 mg PO Q6H PRN (Reason: fever or pain) Qty: 14 0RF naproxen 500 mg tablet 500 mg PO BID PRN (Reason: pain) 10 Days Qty: 20 0RF Stand Alone Forms: Work/School Release Print Language: Yoruba
[2025-05-20 03:00] VITALS: BP 127/81; PULSE 68; RESP 16; TEMP 36.6; O2SAT 99
[2025-05-20] MEDS: diazePAM 10 MG/2 ML CARTRIDGE 5 MG IM (03:01)
[2025-05-20 03:18] LABS: Appearance Urine Clear; Glucose Urine UA Negative (Negative); PH 5.5 (5.0-9.0); Specific Gravity - Urine <= 1.005 (1.005-1.025)
[2025-05-20 04:15] VITALS: BP 118/80; PULSE 69; RESP 18; TEMP 36.3; O2SAT 98
== END 2025-05-20 04:22 | disposition home or self-care (01) ==
PROVIDERS: Physician Assistant Medical; Emergency Provider Emergency Medicine; PCP Internal Medicine
DX: M47.26 Other spondylosis with radiculopathy, lumbar region (principal); M47.896 Other spondylosis, lumbar region; Z79.899 Other long term (current) drug therapy; Z87.442 Personal history of urinary calculi
CPT/HCPCS: 72131; 81003; 96372; 99284; J1885; J3360

== ENCOUNTER → 2025-05-20 02:19 | Outpatient (BNV) | payer OTHER, SELFPAY | PROVIDERS: Emergency Provider Emergency Medicine; PCP Internal Medicine; Visit Provider Radiology Diagnostic Radiology | DX: M51.360 Other intervertebral disc degeneration, lumbar region with discogenic back pain only (principal) | CPT/HCPCS: 72131 ==

== ENCOUNTER 2025-06-17 01:26 | Emergency (ER) | payer OTHER, SELFPAY ==
--- NOTE | ~2025-06-17 | XR_ITS ---
CLINICAL HISTORY: Cough; SOB 2 view chest x-ray Comparison: CR/TN/SR - XR CHEST 1 VIEW - 05/23/24 04:43 EDT Findings: The lungs are clear. Normal size heart. No acute fracture. IMPRESSION: 1. No acute findings. This document has been electronically signed by: Eduar Matson MD on 06/17/2025 03:44:48
[2025-06-17 01:27] VITALS: BP 147/92; PULSE 83; RESP 20; TEMP 36.6; O2SAT 99; BMI 24.2
--- NOTE | 2025-06-17 01:55 | ED_ITS ---
HPI - SOB/Dyspnea General Chief Complaint: Dyspnea Stated Complaint: SOB Time Seen by Provider: 06/17/25 01:34 Source: patient Mode of arrival: ambulatory Limitations: no limitations History of Present Illness ED Provider: Trey EDWARDS HPI Narrative: The patient is a 54-year-old female presenting to the ED for evaluation of shortness of breath with cough intermittently productive of white sputum for the past 2-3 days. The patient reports cough is painful with the pain in the chest and in the low back when coughing. The patient denies associated objective fever but reports subjective chills. The patient denies associated hemoptysis, pleurisy, chest pain at rest, abdominal pain, nausea, vomiting, diarrhea, constipation, hematochezia, melena, dysuria, hematuria. The patient denies any known sick contacts, denies any recent trauma. The patient has not taken any medication for symptoms prior to arrival in the ED. Patient reports tonight she was woken from sleep with severe cough which prompted her ED visit. Related Data Home Medications ?Medication ?Instructions ?Recorded ?Confirmed omeprazole 20 mg capsule,delayed 1 cap PO DAILY 04/20/23 release sertraline 50 mg tablet 1 tab PO DAILY 01/12/2203/30 fluticasone propionate 50 1 spray intranasal DAILY 04/20/23 mcg/actuation nasal spray,suspension lorazepam 1 mg tablet 1 mg PO BEDTIME 04/20/23 ibuprofen 600 mg tablet 600 mg PO Q6H 05/23/24 venlafaxine 75 mg capsule,extended 75 mg PO QAM release 24 hr Previous Rx's ?Medication ?Instructions ?Recorded cyclobenzaprine 10 mg tablet 10 mg PO TID PRN muscle s pasm #15 06/20/24 tabs meloxicam 15 mg tablet 15 mg PO DAILY #7 tabs 06/20 tizanidine 6 mg capsule 6 mg PO Q8H PRN muscle spast icity 06/20/24 5 days #15 caps acetaminophen 500 mg tablet 500 mg PO Q6H PRN fever or pain 10/02/24 (Tylenol Extra Strength) #14 tabs amoxicillin 500 mg capsule 500 mg PO TID 7 days #21 ca ps 10/02/24 morphine 15 mg immediate release 15 mg PO Q6H PRN pain (scale score 10/02/24 tablet 7-10) 3 days #5 tabs naproxen 500 mg tablet 500 mg PO BID PRN pain 10 da ys #20 10/02/24 tabs Lactobacillus rhamnosus GG 10 1 cap PO BID #30 caps billion cell capsule (Culturelle) clindamycin HCl 150 mg capsule 150 mg PO TID 10 days # 30 caps 10/03/24 doxycycline hyclate 100 mg capsule 100 mg PO BID #13 c aps 10/22/24 ibuprofen 600 mg tablet 600 mg PO Q8H PRN fever or p ain 10/22/24 #20 tabs metronidazole 500 mg tablet 500 mg PO BID #13 tabs cyclobenzaprine 5 mg tablet 5 mg PO TID PRN muscle spa sm #10 01/30/25 tabs ketorolac 10 mg tablet 10 mg PO Q8H #12 tabs ketorolac 10 mg tablet 10 mg PO Q6H PRN pain #20 ta bs 05/20/25 methocarbamol 750 mg tablet 750 mg PO Q8H PRN pain, mo derate 05/20/25 #15 tabs methylprednisolone 4 mg tablets in 4 mg PO QAM #21 ea 05/20/25 a dose pack (Medrol (Jameel)) azithromycin 250 mg tablet See Rx Instructions PO .COM PLEX #6 06/17/25 (Zithromax Z-Jameel) tabs prednisone 20 mg tablet 60 mg (3 x 20 mg) PO DAILY 5 days 06/17/25 #15 tabs Allergies Allergy/AdvReac Type Severity Reaction Status Date / Time amoxicillin Allergy Intermediate swelling Verified 06/17/25 01:29 Review of Systems 2 Review of Systems: Yes all other systems are reviewed and are negative [facility]LY [facility] Past Medical History Medical History Renal calculi GERD (gastroesophageal reflux disease) Anxiety Depression ETOH abuse Surgical History Hx of straightening of nasal septum Social History Social History Alcohol intake: current Alcohol intake frequency: does not drink Alcohol type: beer Patient Tobacco Use Status: Current everyday Tobacco user Smoked in Last 30 Days: Yes Use of substances other than those prescribed or required for medical reasons: No Advance Directives: No Advance Directives Information Provided: No Patient : No Current occupational status: disabled Current occupation: rt knee Physical Exam 2 Vital Signs: Vital Signs: Last Vital Signs Temp 97.9 F 06/17/25 01:27 Pulse 83 06/17/25 01:27 Resp 20 06/17/25 01:27 BP 147/92 H 06/17/25 01:27 Pulse Ox 99 06/17/25 01:27 O2 Del Method Room Air 06/17/25 01:27 BMI result Body Mass Index 24.2 CONSTITUTIONAL: The patient appears non-toxic, well nourished and in no acute distress. Vital signs as documented. HEAD: Atraumatic, normocephalic. EYES: EOMs grossly intact, pupils equal, conjunctiva clear, no exudate. ENT: Nares patent, no discharge. Airway patent, no audible stridor, visible mucosa is pink and moist without noted lesions. NECK: Trachea is midline, no obvious masses or gross abnormalities. CHEST: Symmetric movement, normal appearance. LUNGS: LS present and CTAB, no w/r/r. Non-labored work of breathing. CARDIAC: Regular Rhythm, S1/S2 appreciated, no murmurs, rubs or gallops. ABDOMEN: Abdomen soft and non-tender x4 quadrants, no palpable masses or organomegaly. : Deferred. EXTREMITIES: Normal tone, moves all extremities spontaneously without reported pain. No obvious acute injury or deformity noted. NEURO: Alert and oriented x3, CN II-XII appear grossly intact. Cerebellar Functioning grossly intact. No obvious sensory or motor deficits. Speech clear and appropriate. PSYCH: normal affect, appropriate eye contact, fluid speech, with appropriate response to questioning. No reported suicidality or homicidality. SKIN: Warm, dry, color appropriate, normal turgor. No rashes noted. Medications Administered Discontinued Medications Generic Name Dose Route Start Last Admin Trade Name Freq PRN Reason Stop Dose Admin Azithromycin 500 mg 06/17/25 02:14 06/17/25 02:37 Azithromycin 500 Mg Tablet PO 06/17/25 02:15 500 mg ONCE ONE Administration Ketorolac Tromethamine 30 mg 06/17/25 02:14 06/17/25 02:39 Ketorolac Tromethamine 30 Mg/Ml Vial IM 06/17/25 02:15 30 mg ONCE ONE Administration Prednisone 60 mg 06/17/25 02:14 06/17/25 02:37 Prednisone 20 Mg Tablet PO 06/17/25 02:15 60 mg ONCE ONE Administration Medical Decision Making Medical Decision Making [facility] Narrative: 2:16 AM 06/17/2025 (Christopher EDWARDS): The patient is a 54-year-old female presenting to the ED for evaluation of shortness of breath with cough intermittently productive of white sputum for the past 2-3 days. The patient reports cough is painful with the pain in the chest and in the low back when coughing. The patient denies associated objective fever but reports subjective chills. The patient denies associated hemoptysis, pleurisy, chest pain at rest, abdominal pain, nausea, vomiting, diarrhea, constipation, hematochezia, melena, dysuria, hematuria. The patient denies any known sick contacts, denies any recent trauma. The patient has not taken any medication for symptoms prior to arrival in the ED. Patient reports tonight she was woken from sleep with severe cough which prompted her ED visit. In the ED patient is well-appearing, in no acute distress. The patient's exam demonstrates no wheezing, rhonchi, or rales. Pain is not reproducible with deep respiration or palpation. The patient is not actively coughing during exam. The patient will be evaluated with basic laboratory evaluation, viral swabs, chest x-ray, troponin, EKG, and we will treat with anti-inflammatories, prednisone, and azithromycin for suspected acute bronchitis. 3:46 AM 06/17/2025 (Christopher EDWARDS): The patient's chest x-ray shows no acute cardiopulmonary process, EKG is nonischemic. Troponin is negative, influenza and COVID testing are negative. Remainder of laboratory workup is reassuring, no leukocytosis, anemia, electrolyte abnormality, or EARLENE. The patient's vital signs remained stable. We will discharge with prednisone and azithromycin for suspected acute bronchitis in a smoker. Admission/Observation Consideration of admission/observation: Escalation of care including admission/observation considered Lab Data [facility] Lab Attestation statement: I reviewed the patient's lab results. 06/17/25 02:17 06/17/25 02:17 Labs: Lab Results 06/17/25 Range/Units 02:17 WBC 7.3 (4.8-10.8) X10*3/uL RBC 4.35 (4.20-5.50) X10*6/uL Hgb 14.3 (12.0-16.0) g/dl Hct 40.9 (37.0-47.0) % MCV 94.0 (80.0-98.0) fL MCH 32.9 (27.0-33.0) pg MCHC 35.0 (31.0-35.0) g/dl RDW 13.2 (11.0-16.0) % Plt Count 268 D (160-400) X10*3/uL MPV 9.7 (9.4-12.3) fL Immature Gran % (Auto) 0.3 (0.0-0.4) % Neut % (Auto) 55.4 (45-73) % Lymph % (Auto) 36.0 (20-40) % Harvey % (Auto) 7.1 (2-11) % Eos % (Auto) 0.8 (0-4) % Baso % (Auto) 0.4 (0-2) % Lymph # (Auto) 2.6 (1.2-4.9) X10*3/uL Harvey # (Auto) 0.5 (0.1-1.2) X10*3/uL Eos # (Auto) 0.1 (0.0-0.4) X10*3/uL Baso # (Auto) 0.0 (0.0-0.2) X10*3/uL Abs Immat Gran (auto) 0.02 (0.00-0.03) X10*3/uL Absolute Neuts (auto) 4.1 (2.0-8.3) x10*3/uL Absolute Nucleated RBC 0.000 (0.0-0.012) X10*3/uL Nucleated RBC % (auto) 0.0 (0.0-0.2) /100WBC Sodium 137 (135-145) mmol/L Potassium 3.9 (3.3-5.1) mmol/L Chloride 103 (96-108) mmol/L Carbon Dioxide 24 (22-29) mmol/L Anion Gap 14 (12-20) BUN 7 L (9-16) mg/dL Creatinine 0.62 (0.5-1.4) mg/dL Estim Creat Clear Calc 97.1 Estimated GFR > 60 Random Glucose 83 (60-115) mg/dL Calcium 9.2 (8.4-10.2) mg/dL Total Bilirubin 0.2 (0.0-1.0) mg/dL AST 51 H (5-31) U/L ALT 60 H (0-31) U/L Alkaline Phosphatase 70 (39-117) U/L Troponin I High Sens < 2.7 (<3.5-17.0) ng/L Total Protein 7.4 (6.5-8.0) g/dL Albumin 4.5 (3.5-5.0) g/dL COVID-19 (JESSE) Negative (Negative) COVID-19 Clin Com See Note Influenza Type A (SURY) Negative (Negative) Influenza Type B (SURY) Negative (Negative) Influenza A & B Note See Note Independent Interpretation I performed an independent interpretation of an: EKG (EKG shows sinus rhythm with a rate of 66, no evidence of acute ischemia, no ST elevation, no ectopy. QTC 431. Compared to previous on 05/23/2024 there are no significant morphology changes. ) Radiology Impression Discussion of test interpretation with radiology: I have reviewed the radiologist's reading. Radiologist Impression: 2 view chest x-ray Comparison: CR/WY/SR - XR CHEST 1 VIEW - 05/23/24 04:43 EDT Findings: The lungs are clear. Normal size heart. No acute fracture. IMPRESSION: 1. No acute findings. This document has been electronically signed by: Eduar Matson MD on 06/17/2025 03:44:48 Discharge Plan Discharge Clinical Impression: Acute bronchitis Qualifiers: Bronchitis organism: unspecified organism Qualified Code(s): J20.9 - Acute bronchitis, unspecified Patient Disposition: Home, Self-Care Instructions: Acute Bronchitis (ED) Additional Instructions: Thank you for choosing [facility]'s Emergency Department for your care today. Thankfully your x-ray, EKG, viral swabs, laboratory evaluation, and exam today are all reassuring. At this time there is no indication for admission to the hospital or continued ED observation, and it is safe to discharge you home. Your symptoms today may be secondary to inflammation of your upper airways, a condition known as acute bronchitis. Due to your smoking history we are treating you with a course of prednisone and azithromycin to decrease the severity and duration of your symptoms. Please take these as prescribed until they are finished. You should take alternating (staggered) doses of ibuprofen 600mg and Tylenol 1000mg every 4 hours as needed for any additional pain or fever. Please stay well hydrated and get plenty of rest. It is extremely important that you use any and all possible resources to attempt to quit smoking as continued smoking we will increase the frequency and severity of these symptoms. Please follow up with your primary care physician for re-evaluation, pulmonary function testing to assess for chronic restrictive airway disease, additional management of your symptoms, and continued preventative care. If you do not have a primary care physician, please call the [facility] at [phone] to establish a new primary care physician. While waiting to establish your new primary care physician, you can call our [facility] at [phone] for non-emergency needs. Please return to the emergency department if you develop a severe or sudden change in your symptoms, a fever over 100.4 that does not improve with Tylenol or Ibuprofen, recurrent vomiting, or any other new or worsening symptoms or concerns. Prescriptions: New azithromycin [Zithromax Z-Jameel] 250 mg tablet See Rx Instructions .ROUTE .COMPLEX Qty: 6 0RF Rx Instructions: For 250 mg dose pack: take 500 mg today (day 1), then 250 mg for 4 days (days 2-5) prednisone 20 mg tablet 60 mg PO DAILY 5 Days Qty: 15 0RF No Action omeprazole 20 mg capsule,delayed release(DR/EC) 1 cap PO DAILY sertraline 50 mg tablet 1 tab PO DAILY venlafaxine 75 mg capsule,extended release 24hr 75 mg PO QAM ibuprofen 600 mg tablet 600 mg PO Q6H meloxicam 15 mg tablet 15 mg PO DAILY Qty: 7 0RF tizanidine 6 mg capsule 6 mg PO Q8H PRN (Reason: muscle spasticity) 5 Days Qty: 15 0RF cyclobenzaprine 10 mg tablet 10 mg PO TID PRN (Reason: muscle spasm) Qty: 15 0RF clindamycin HCl 150 mg capsule 150 mg PO TID 10 Days Qty: 30 0RF Culturelle 10 billion cell capsule 1 cap PO BID Qty: 30 0RF doxycycline hyclate 100 mg capsule 100 mg PO BID Qty: 13 0RF metronidazole 500 mg tablet 500 mg PO BID Qty: 13 0RF ibuprofen 600 mg tablet 600 mg PO Q8H PRN (Reason: fever or pain) Qty: 20 0RF cyclobenzaprine 5 mg tablet 5 mg PO TID PRN (Reason: muscle spasm) Qty: 10 0RF ketorolac 10 mg tablet 10 mg PO Q8H Qty: 12 0RF Rx Instructions: Do not use this medication with naproxen, ibuprofen or any other NSAIDs, only acetaminophen if needed lorazepam 1 mg tablet 1 mg PO BEDTIME fluticasone propionate 50 mcg/actuation spray,suspension 1 spray intranasal DAILY amoxicillin 500 mg capsule 500 mg PO TID 7 Days Qty: 21 0RF morphine 15 mg tablet 15 mg PO Q6H PRN (Reason: pain (scale score 7-10)) 3 Days Qty: 5 0RF Rx Instructions: Partial Fill upon patient request. acetaminophen [Tylenol Extra Strength] 500 mg tablet 500 mg PO Q6H PRN (Reason: fever or pain) Qty: 14 0RF naproxen 500 mg tablet 500 mg PO BID PRN (Reason: pain) 10 Days Qty: 20 0RF ketorolac 10 mg tablet 10 mg PO Q6H PRN (Reason: pain) Qty: 20 0RF Rx Instructions: maximum total duration of 5 days from all oral, intranasal, or parenteral formulations. Patient received an intramuscular dose of Toradol here in the emergency room methylprednisolone [Medrol (Jameel)] 4 mg tablets,dose pack 4 mg PO QAM Qty: 21 0RF Rx Instructions: Take per package instructions methocarbamol 750 mg tablet 750 mg PO Q8H PRN (Reason: pain, moderate) Qty: 15 0RF Referrals: Shawnee Delgado MD [Primary Care Provider, Internal Medicine] Clinical Impression: Acute bronchitis Print Language: Korean
--- NOTE | 2025-06-17 01:55 | ECG_ITS ---
Test Reason : sob Blood Pressure : */* mmHG Vent. Rate : 66 BPM Atrial Rate : 66 BPM P-R Int : 192 ms QRS Dur : 88 ms QT Int : 412 ms P-R-T Axes : 39 5 10 degrees QTcB Int : 431 ms Normal sinus rhythm Inferior infarct , age undetermined Abnormal ECG When compared with ECG of 23-May-2024 04:24, No significant change was found Referred By: Trey Mauricio Electronically Signed By: HERB HOLGUIN MD
--- OUTSIDE RECORDS SUMMARY | 2025-06-17 02:16 | XMS_ITS | Encounter Summary ---
Author Organization [employer] Address [address] [place] [address] Care Team Providers Care Director Weights And Measures Name Role Phone Unavailable Primary Care Provider Unavailabl e Reason for Visit * Reason Comments Med Refill Encounter Details Date Type Department Care Team (Late st Contact Info) Description 09/25/2023 Refill [facility] [address] [place], [place] [phone] Luaks Duran DMD [address] [place], [place] [phone] Dental caries extending into pulp Social History [...]
--- OUTSIDE RECORDS SUMMARY | 2025-06-17 02:16 | XMS_ITS | Patient Health Record ---
Author Organization [facility] Address [address] [place] [address] Care Team Providers Care Road Crossing Guard Name Role Phone Shawnee Delgado Primary Care Provider UnavailRajan Andres Jr Unavailable [phone] Allergies No Known Allergies Reason For Referral No Information Medications Medication SIG (Take, Route, Frequency, Duration) Notes Start Date End Date Status MiraLax (colon prep) 17 GM/SCOOP mixed with Gatorade or Crystal Light Orally begin at 5:00 p.m. the day before the procedure; Duration: 1 day 12/09/2021 Active MiraLax (colon prep) 17 GM/SCOOP mixed with Gatorade or Crystal Light Orally begin at 5:00 p.m. the day before the procedure; Duration: 1 day 12/10/2021 Active Sertraline HCl 50 MG Oral; Duration: 90 Active Dulcolax (colon prep) 5 MG take at 3:00 p.m and 7:00p.m. Orally two tablets twice a day for one day; Duration: 1 day 12/10/2021 Active Immunizations Vaccine Route [...] Insured Coverage Start Date Coverage End Date [facility] [address] [address] [place], [place] [id number] COURTNEY WHITE Self - patient is the insured Medical (General) History Medical History History ICD Code Gastroesophageal reflux disease Anxiety/depression Nephrolithiasis History of elevated liver function tests Surgical History Surgery Date(Month/Year)
--- OUTSIDE RECORDS SUMMARY | 2025-06-17 02:16 | XMS_ITS | Clinical Summary ---
Author Organization [facility] [facility] Address [address] [place] [address] Care Team Providers Care Stripper Apprentice Name Role Phone Unavailable Primary Care Provider [...] patient's age to complete this topic Insurance [facility] MEDICAID STAND ADULT
--- OUTSIDE RECORDS SUMMARY | 2025-06-17 02:16 | XMS_ITS | Encounter Summary ---
Author Organization [employer] Address [address] [place] [address] Care Team Providers Care Hl7 Developer Name Role Phone Unavailable Primary Care Provider Unavailabl e Reason for Visit * Reason Comments Med Refill Encounter Details Date Type Department Care Team (Late st Contact Info) Description 06/22/2023 Refill [facility] ADULT [facility] [address] [place], [place] [phone] Lukas Duran DMD [address] [place], [place] [phone] Dental caries extending into pulp Social History [...]
[2025-06-17 02:22] LABS: MANUAL DIFF FLAG NO
[2025-06-17 02:26] LABS: Hematocrit 40.9 % (37.0-47.0); Hemoglobin 14.3 g/dl (12.0-16.0); Imm Gran Abs Auto 0.02 X10*3/uL (0.00-0.03); Imm Gran Pct Auto 0.3 % (0.0-0.4); Lymphocytes Absolute Auto 2.6 X10*3/uL (1.2-4.9); Mean Corpuscular HGB Conc 35.0 g/dl (31.0-35.0); Mean Corpuscular Hemoglobin 32.9 pg (27.0-33.0); Mean Corpuscular Volume 94.0 fL (80.0-98.0); NRBC Abs Auto 0.000 X10*3/uL (0.0-0.012); NRBC Pct Auto 0.0 /100WBC (0.0-0.2); Platelet Count 268 X10*3/uL (160-400); Red Blood Count 4.35 X10*6/uL (4.20-5.50); White Blood Count 7.3 X10*3/uL (4.8-10.8)
[2025-06-17 02:51] LABS: Alanine Aminotransferase 60 U/L (0-31); Albumin Level 4.5 g/dL (3.5-5.0); Anion Gap 14 (12-20); Aspartate Amino Transferase 51 U/L (5-31); Blood Urea Nitrogen 7 mg/dL (9-16); Calcium 9.2 mg/dL (8.4-10.2); Carbon Dioxide 24 mmol/L (22-29); Chloride 103 mmol/L (96-108); Creatinine Clr Calc Pharmacy 97.1; Estimated Glomerular Filt Rate > 60; Potassium 3.9 mmol/L (3.3-5.1); Sodium 137 mmol/L (135-145); Total Protein 7.4 g/dL (6.5-8.0); Troponin-I High Sensitivity < 2.7 ng/L (<3.5-17.0)
--- NOTE | 2025-06-17 02:59 | PC.NURSE ---
Pt conversing freely in clear and complete sentences while noted to be on her cell phone without distress noted. Pt not heard to be short of breath, gasping or any other outward expressions of distress. The pt has been medicated per MAR and is awaiting results/dispo from provider at this time.
[2025-06-17 03:12] LABS: IDNOW Serial# 58CA691E; Influenza B2 Negative (Negative)
[2025-06-17 03:13] LABS: COVID-19 Test Negative (Negative); IDNOW Serial# 55D5AD1C
[2025-06-17 03:22] LABS: Alkaline Phosphatase 70 U/L (39-117)
[2025-06-17 05:08] VITALS: BP 136/72; PULSE 79; RESP 20; TEMP 36.6; O2SAT 99
== END 2025-06-17 04:40 | disposition home or self-care (01) ==
PROVIDERS: Physician Assistant; Emergency Provider Emergency Medicine; PCP Internal Medicine
DX: J20.9 Acute bronchitis, unspecified (principal); R06.02 Shortness of breath; R05.9 Cough, unspecified; R94.31 Abnormal electrocardiogram [ECG] [EKG]; Z11.52 Encounter for screening for COVID-19; Z79.899 Other long term (current) drug therapy; F17.210 Nicotine dependence, cigarettes, uncomplicated
CPT/HCPCS: 71046; 80053; 84484; 85025; 87502; 87635; 93005; 96372; 99284; 99285; J1885

== ENCOUNTER → 2025-06-17 01:55 | Outpatient (BNV) | payer OTHER, SELFPAY | PROVIDERS: Emergency Provider Emergency Medicine; PCP Internal Medicine; Visit Provider Radiology Diagnostic Radiology | DX: R05.9 Cough, unspecified (principal); R06.02 Shortness of breath | CPT/HCPCS: 71046 ==

== ENCOUNTER → 2025-06-17 01:55 | Outpatient (BNV) | payer OTHER, SELFPAY | PROVIDERS: Emergency Provider Emergency Medicine; PCP Internal Medicine; Visit Provider Internal Medicine Cardiovascular Disease | DX: R94.31 Abnormal electrocardiogram [ECG] [EKG] (principal); R06.02 Shortness of breath | CPT/HCPCS: 93010 ==

== ENCOUNTER 2025-08-06 04:30 | Emergency (ER) | payer OTHER, SELFPAY ==
[2025-08-06 04:39] VITALS: BP 158/84; PULSE 99; RESP 20; TEMP 37.3; O2SAT 98; BMI 24.0
--- OUTSIDE RECORDS SUMMARY | 2025-08-06 05:17 | XMS_ITS | Patient Health Record ---
Author Organization [facility] Address [address] [place] [address] Care Team Providers Care Hazardous Waste Remover Name Role Phone Shawnee Delgado Primary Care Provider UnavailRajan Andres Jr Unavailable Allergies No Known Allergies Reason For Referral No Information Medications Medication SIG (Take, Route, Frequency, Duration) Notes Start Date End Date Status MiraLax (colon prep) 17 GM/SCOOP Powder mixed with Gatorade or Crystal Light Orally begin at 5:00 p.m. the day before the procedure; Duration: 1 day 12/09/2021 Active MiraLax (colon prep) 17 GM/SCOOP Powder mixed with Gatorade or Crystal Light Orally begin at 5:00 p.m. the day before the procedure; Duration: 1 day 12/10/2021 Active Sertraline HCl 50 MG Tablet Oral; Duration: 90 Active Dulcolax (colon prep) 5 MG Tablet Delayed Release take at 3:00 p.m and 7:00p.m. Orally two tablets twice a day for one day; Duration: 1 day 12/10/2021 Active Immunizations Vaccine Route Administration Date Status Comme nts Influenza Unknown 12/09/2021 Refused Social History Tobacco Use: Social History Observation Description Date Details (start date - stop date) Current Smoker NA - NA Social History Drugs/Alcohol: Social Info Question Answer Notes Alcohol Screen Did you have a drink containing alcohol in the past year? Yes How often did you have a drink containing alcohol in the past year? 2 to 4 times a month (2 points) How many drinks did you have on a typical day when you were drinking in the past year? 3 or 4 drinks (1 point) How often did you have 6 or more drinks on one occasion in the past year? Monthly (2 points) Points 5 Interpretation Positive Tobacco Use: Social Info Question Answer Notes Tobacco Use/Smoking Patient is a current smoker Additional Details Category Social Info Options Details Miscellaneous: Marital status: single Plan Of Treatment Future Test Test Name Order Date COLONOSCOPY 12/09/2021 Insurance Providers Payer Name Payer Address Payer Phone Subscriber Number Group Number Insured Name Patient Relationship to Insured Coverage Start Date Coverage End Date [facility] [address] [address] [place], [place] [id number] COURTNEY WHITE Self - patient is the insured Medical (General) History Medical History History ICD Code Gastroesophageal reflux disease Anxiety/depression Nephrolithiasis History of elevated liver function tests Surgical History Surgery Date(Month/Year)
--- OUTSIDE RECORDS SUMMARY | 2025-08-06 05:17 | XMS_ITS | Encounter Summary ---
Author Organization [employer] Address [address] [place] [address] Care Team Providers Care Telephone Interviewer Name Role Phone Unavailable Primary Care Provider Unavailabl e Reason for Visit * Reason Comments Med Refill Encounter Details Date Type Department Care Team (Late st Contact Info) Description 06/22/2023 Refill [facility] [address] [place], [place] [phone] Lukas Duran DMD [address] [place], [place] [phone] Dental caries extending into pulp Social History [...]
--- OUTSIDE RECORDS SUMMARY | 2025-08-06 05:17 | XMS_ITS | Encounter Summary ---
Author Organization [employer] Address [address] [place] [address] Care Team Providers Care Glaze Sprayer Name Role Phone Unavailable Primary Care Provider Unavailabl e Reason for Visit * Reason Comments Med Refill Encounter Details Date Type Department Care Team (Late st Contact Info) Description 09/25/2023 Refill [facility]ULT [facility] [address] [place], [place] [phone] Lukas Duran DMD [address] [place], [place] [phone] Dental caries extending into pulp Social History [...]
--- OUTSIDE RECORDS SUMMARY | 2025-08-06 05:17 | XMS_ITS | Clinical Summary ---
Author Organization [employer] [facility] Address [address] [place] [address] Care Team Providers Care Software Sales Executive Name Role Phone Unavailable Primary Care Provider [...] Screening 11/09/2023 11/08/2022 COVID-19 Vaccine (1 - 2024-2 6 season) 2025 Influenza Vaccine (#1) 2025 10/29/2010 [...] patient's age to complete this topic Insurance [facility] MEDICAID STAND ADULT
[2025-08-06 05:50] LABS: Resp Syncy Virus RNA Qual PCR NEGATIVE (Negative); SARS COV2 PCR INHOUSE NEGATIVE (Negative)
[2025-08-06 06:00] VITALS: BP 142/84; PULSE 107; RESP 20; TEMP 38; O2SAT 97
--- NOTE | 2025-08-06 06:11 | ED.URI ---
HPI - URI/Sore Throat General Chief Complaint: Upper Respiratory Symptoms Stated Complaint: General Medical Time Seen by Provider: 08/06/25 05:48 Source: patient Mode of arrival: ambulatory Limitations: no limitations History of Present Illness ED Provider: Dr. Cruz Calero HPI Narrative: 54-year-old female with a history depression anxiety who presents emergency department for evaluation of cough, sore throat, body aches, rhinorrhea, chest pain, shortness of breath and dyspnea on exertion. The patient states that her symptoms started yesterday. She states she has a cough productive of clear phlegm with no blood. Patient states that her cough causes her to vomit. She states that cough also causes her to have chest pain. She has shortness of breath and mild dyspnea on exertion. She had a subjective fever and chills. She denied frequency, urgency or dysuria. She states she has had several loose stools. The patient did not take any medications for his symptoms prior to coming to the emergency department. Related Data Home Medications ?Medication ?Instructions ?Recorded ?Confirmed omeprazole 20 mg capsule,delayed 1 cap PO DAILY 01/12/22 04/20/23 release sertraline 50 mg tablet 1 tab PO DAILY 01/12/22 04/20/23 fluticasone propionate 50 1 spray intranasal DAILY 04/20/23 04/20/23 mcg/actuation nasal spray,suspension lorazepam 1 mg tablet 1 mg PO BEDTIME 04/20/23 04/20/23 ibuprofen 600 mg tablet 600 mg PO Q6H 05/23/24 venlafaxine 75 mg capsule,extended 75 mg PO QAM 05/23/24 release 24 hr Previous Rx's ?Medication ?Instructions ?Recorded cyclobenzaprine 10 mg tablet 10 mg PO TID PRN muscle spasm #15 06/20/24 tabs meloxicam 15 mg tablet 15 mg PO DAILY #7 tabs 06/20/24 tizanidine 6 mg capsule 6 mg PO Q8H PRN muscle spasticity 06/20/24 5 days #15 caps acetaminophen 500 mg tablet 500 mg PO Q6H PRN fever or pain 10/02/24 (Tylenol Extra Strength) #14 tabs amoxicillin 500 mg capsule 500 mg PO TID 7 days #21 caps 10/02/24 morphine 15 mg immediate release 15 mg PO Q6H PRN pain (scale score 10/02/24 tablet 7-10) 3 days #5 tabs naproxen 500 mg tablet 500 mg PO BID PRN pain 10 days #20 10/02/24 tabs Lactobacillus rhamnosus GG 10 1 cap PO BID #30 caps 10/03/24 billion cell capsule (Culturelle) clindamycin HCl 150 mg capsule 150 mg PO TID 10 days #30 caps 10/03/24 doxycycline hyclate 100 mg capsule 100 mg PO BID #13 caps 10/22/24 ibuprofen 600 mg tablet 600 mg PO Q8H PRN fever or pain 10/22/24 #20 tabs metronidazole 500 mg tablet 500 mg PO BID #13 tabs 10/22/24 cyclobenzaprine 5 mg tablet 5 mg PO TID PRN muscle spasm #10 01/30/25 tabs ketorolac 10 mg tablet 10 mg PO Q8H #12 tabs 01/30/25 ketorolac 10 mg tablet 10 mg PO Q6H PRN pain #20 tabs 05/20/25 methocarbamol 750 mg tablet 750 mg PO Q8H PRN pain, moderate 05/20/25 #15 tabs methylprednisolone 4 mg tablets in 4 mg PO QAM #21 ea 05/20/25 a dose pack (Medrol (Jameel)) azithromycin 250 mg tablet See Rx Instructions PO .COMPLEX #6 06/17/25 (Zithromax Z-Jameel) tabs prednisone 20 mg tablet 60 mg (3 x 20 mg) PO DAILY 5 days 06/17/25 #15 tabs acetaminophen 500 mg tablet 1,000 mg (2 x 500 mg) PO Q6H PRN 08/06/25 (Tylenol Extra Strength) pain #20 tabs ibuprofen 400 mg tablet 400 mg PO TID PRN fever or pain 08/06/25 #30 tabs morphine 15 mg immediate release 15 mg PO Q8H PRN pain #10 tabs 08/06/25 tablet ondansetron 4 mg disintegrating 4 mg PO Q6-8H PRN nausea and 08/06/25 tablet vomiting #14 tabs Allergies Allergy/AdvReac Type Severity Reaction Status Date / Time amoxicillin Allergy Intermediate swelling Verified 08/06/25 04:41 Review of Systems Review of Systems: Yes all other systems are reviewed and are negative [facility] Past Medical History [facility] Narrative: Social history: Patient does smoke 1 pack of cigarettes per day times many years. She occasionally drinks alcohol. She denies drug use. Medical History Renal calculi GERD (gastroesophageal reflux disease) Anxiety Depression ETOH abuse Surgical History Hx of straightening of nasal septum Social History Social History Alcohol intake: current Alcohol intake frequency: does not drink Alcohol type: beer Patient Tobacco Use Status: Current everyday Tobacco user Smoked in Last 30 Days: Yes Use of substances other than those prescribed or required for medical reasons: No Any prior treatment program specific to substance use: No Advance Directives: No Advance Directives Information Provided: Yes Patient : No Current occupational status: disabled Current occupation: rt knee Physical Exam Vital Signs: Vital Signs: Last Vital Signs Temp 98.9 F 08/06/25 08:37 Pulse 84 08/06/25 09:39 Resp 17 08/06/25 09:39 BP 110/52 L 08/06/25 09:39 Pulse Ox 95 08/06/25 09:39 O2 Del Method Room Air 08/06/25 09:39 BMI result Body Mass Index 24.0 Vital signs revealed an elevated blood pressure of 158/84 Exam: General: Awake, alert, patient has a frequent, nonproductive sounding cough Head: Normocephalic, atraumatic EENT: PERRL, sclera and conjunctiva are normal, mouth with no erythema or exudates Neck: Supple, no adenopathy Lung: breath sounds symmetric, no wheezing, no rales and no rhonchi Chest: symmetric movement, nontender Heart: regular rate and rhythm, normal S1, S2 no murmurs or rubs Abdomen: soft, non-tender, nondistended, normal bowel sounds Back: no vertebral tenderness, no CVAT Extremities: no deformities, moves all extremities symmetrically, no edema Neuro: Awake, alert, oriented, normal speech, cranial nerves 2-12 intact, moves all extremities symmetrically Psych: Pleasant, cooperative Medications Administered Discontinued Medications Generic Name Dose Route Start Last Admin Trade Name Freq PRN Reason Stop Dose Admin Ibuprofen 400 mg 08/06/25 06:10 08/06/25 06:18 Ibuprofen 400 Mg Tablet PO 08/06/25 06:11 400 mg ONCE STA Administration Ketorolac Tromethamine 60 mg 08/06/25 09:42 08/06/25 09:48 Ketorolac Tromethamine 60 Mg/2 Ml Vial IM 08/06/25 09:43 60 mg ONCE ONE Administration Ondansetron HCl 4 mg 08/06/25 06:14 08/06/25 06:18 Ondansetron Odt 4 Mg Tab.Noah FLOYD 08/06/25 06:15 4 mg ONCE STA Administration Medical Decision Making Medical Decision Making [facility] Narrative: 54-year-old female with a history depression anxiety who presents emergency department for evaluation of cough productive of clear sputum which triggers vomit, pleuritic chest pain worse with cough, sore throat, body aches, rhinorrhea, shortness of breath and dyspnea on exertion x1 day. Vital signs revealed an elevated blood pressure of 158/84 otherwise unremarkable. Patient does have a nonproductive persistent sounding cough otherwise exam is unremarkable Differential diagnosis: ?Includes but is not limited to viral syndrome, COVID-19, influenza, RSV, viral pharyngitis, strep pharyngitis, bronchitis, pneumonia Course: 06:16 My interpretation patient's laboratory evaluation is as follows: COVID-19, influenza and RSV tests are negative. Rapid strep is pending. Patient was ordered to get ibuprofen 400 mg orally and Zofran 4 mg ODT. 10:21 Rapid strep test was negative. Patient had relief of her nausea with the Zofran ODT but no relief of her pain with ibuprofen. She was given Toradol 60 mg IM with some improvement. I did discuss viral URIs and viral pharyngitis with the patient. At this time I do not think that the patient needs an antibiotic and she agrees with this treatment plan. The patient was prescribed Tylenol and ibuprofen for pain and fever, for pain not relieved by these medications she was prescribed morphine she was also given a prescription for Zofran ODT 4 mg every 6-8 hours as needed. She was given printed and verbal instructions and discharged home. Differential Diagnosis Differential Diagnoses: The differential diagnosis associated with the presentation includes (See above) Admission/Observation Consideration of admission/observation: Escalation of care including admission/observation considered (Yes) Lab Data [facility] Lab Attestation statement: I reviewed the patient's lab results. Labs: Lab Results 08/06/25 08/06/25 Range/Units 04:59 06:16 Influenza Type A (PCR) NEGATIVE (Negative) Influenza Type B (PCR) NEGATIVE (Negative) RSV RNA Qual (PCR) NEGATIVE (Negative) SARS-CoV-2 RNA (RT-PCR) NEGATIVE (Negative) S. pyogenes GrpA SURY Negative (Negative) Prescription Management I considered prescription management with: Pain Medication (Patient was prescribed ibuprofen and Tylenol) and Other (Patient was prescribed Zofran 4 mg ODT) Discharge Plan Discharge Clinical Impression: Viral URI, Acute viral pharyngitis Patient Disposition: Home, Self-Care Instructions: Upper Respiratory Infection (ED) Additional Instructions: Your COVID-19, influenza and RSV tests were negative Your rapid strep throat test was negative as well There are many viruses that can make us ill in your symptoms are consistent with a an upper respiratory virus causing your cough, runny nose and sore throat. This should get better but it can sometimes take 2-3 weeks for a virus to go away. Take ibuprofen 400 mg pills, 1 pills every 6 hours as needed for pain. Take Tylenol (acetaminophen) 500 mg, 2 pills every 6 hours as needed for pain. For pain not relieved by ibuprofen or Tylenol take morphine 15 mg pills, 1 pill every 6 hours as needed for pain. This medication will make you sleepy, do not drive or work while taking this medication. Morphine is a narcotic medication and can be addicting. If you are concerned about addiction you can ask the pharmacist for less pills or do not get this prescription filled. Take Zofran ODT 4 mg pills, 1 pill dissolved in your mouth every 8 hours as needed for nausea and vomiting. Follow-up with your doctor in 2 days. Please return to the emergency department if your symptoms get worse or if you develop any symptoms that are concerning to you. Prescriptions: New acetaminophen [Tylenol Extra Strength] 500 mg tablet 1,000 mg PO Q6H PRN (Reason: pain) Qty: 20 0RF ibuprofen 400 mg tablet 400 mg PO TID PRN (Reason: fever or pain) Qty: 30 0RF ondansetron 4 mg tablet,disintegrating 4 mg PO Q6-8H PRN (Reason: nausea and vomiting) Qty: 14 0RF morphine 15 mg tablet 15 mg PO Q8H PRN (Reason: pain) Qty: 10 0RF Rx Instructions: Partial Fill upon patient request. No Action omeprazole 20 mg capsule,delayed release(DR/EC) 1 cap PO DAILY sertraline 50 mg tablet 1 tab PO DAILY venlafaxine 75 mg capsule,extended release 24hr 75 mg PO QAM ibuprofen 600 mg tablet 600 mg PO Q6H meloxicam 15 mg tablet 15 mg PO DAILY Qty: 7 0RF tizanidine 6 mg capsule 6 mg PO Q8H PRN (Reason: muscle spasticity) 5 Days Qty: 15 0RF cyclobenzaprine 10 mg tablet 10 mg PO TID PRN (Reason: muscle spasm) Qty: 15 0RF clindamycin HCl 150 mg capsule 150 mg PO TID 10 Days Qty: 30 0RF Culturelle 10 billion cell capsule 1 cap PO BID Qty: 30 0RF doxycycline hyclate 100 mg capsule 100 mg PO BID Qty: 13 0RF metronidazole 500 mg tablet 500 mg PO BID Qty: 13 0RF ibuprofen 600 mg tablet 600 mg PO Q8H PRN (Reason: fever or pain) Qty: 20 0RF cyclobenzaprine 5 mg tablet 5 mg PO TID PRN (Reason: muscle spasm) Qty: 10 0RF ketorolac 10 mg tablet 10 mg PO Q8H Qty: 12 0RF Rx Instructions: Do not use this medication with naproxen, ibuprofen or any other NSAIDs, only acetaminophen if needed lorazepam 1 mg tablet 1 mg PO BEDTIME fluticasone propionate 50 mcg/actuation spray,suspension 1 spray intranasal DAILY amoxicillin 500 mg capsule 500 mg PO TID 7 Days Qty: 21 0RF morphine 15 mg tablet 15 mg PO Q6H PRN (Reason: pain (scale score 7-10)) 3 Days Qty: 5 0RF Rx Instructions: Partial Fill upon patient request. acetaminophen [Tylenol Extra Strength] 500 mg tablet 500 mg PO Q6H PRN (Reason: fever or pain) Qty: 14 0RF naproxen 500 mg tablet 500 mg PO BID PRN (Reason: pain) 10 Days Qty: 20 0RF ketorolac 10 mg tablet 10 mg PO Q6H PRN (Reason: pain) Qty: 20 0RF Rx Instructions: maximum total duration of 5 days from all oral, intranasal, or parenteral formulations. Patient received an intramuscular dose of Toradol here in the emergency room methylprednisolone [Medrol (Jameel)] 4 mg tablets,dose pack 4 mg PO QAM Qty: 21 0RF Rx Instructions: Take per package instructions methocarbamol 750 mg tablet 750 mg PO Q8H PRN (Reason: pain, moderate) Qty: 15 0RF azithromycin [Zithromax Z-Jameel] 250 mg tablet See Rx Instructions .ROUTE .COMPLEX Qty: 6 0RF Rx Instructions: For 250 mg dose pack: take 500 mg today (day 1), then 250 mg for 4 days (days 2-5) prednisone 20 mg tablet 60 mg PO DAILY 5 Days Qty: 15 0RF Print Language: Mongolian
[2025-08-06 06:27] LABS: IDNOW Serial# 6674DD1D; Strep A Nucleic Acid Negative (Negative)
[2025-08-06 08:37] VITALS: TEMP 37.2
[2025-08-06 09:39] VITALS: BP 110/52; PULSE 84; RESP 17; O2SAT 95
[2025-08-06 10:40] VITALS: BP 110/52; PULSE 84; RESP 17; TEMP 37.2; O2SAT 95
== END 2025-08-06 10:54 | disposition home or self-care (01) ==
PROVIDERS: Emergency Provider Emergency Medicine Emergency Medical Services; PCP Internal Medicine
DX: J06.9 Acute upper respiratory infection, unspecified (principal); J02.8 Acute pharyngitis due to other specified organisms; R05.9 Cough, unspecified; R06.02 Shortness of breath; Z03.818 Encounter for observation for suspected exposure to other biological agents ruled out
CPT/HCPCS: 87637; 87651; 96372; 99284; 99285; J1885